=== PATIENT | male | born 1955 | race Caucasian/White ===

== ENCOUNTER 2019-04-05 00:10 | Inpatient (IN) | payer OTHER, MEDICAID ==
[~2019-04-05] VITALS: Ht 172.7 cm; Wt 78.3 kg
[2019-04-05] VITALS (10 sets, daily range): BP systolic 95–149; BP diastolic 37–100
[~2019-04-05 00:10] MED LIST: ACETAMINOPHEN-1 EAC1 PO; ASPIRIN; ASPIRIN325 PO; CARAFATE 1 GM TA1 G1 PO; COREG; CRESTOR10 MG PO; FISH OIL 1,001000 M2 PO; FISHOIL; FLEXERIL PO; GEMFIBROZIL; HYDROCODONE-AP1 EAC6 PO; HYDROCODONE-APA1 TA1 PO; IBUPROFEN 800800 M1 PO; JANUMET 50-1,01 EACH PO; LEVOXYL175 MCG PO; LIPITOR; MUSCLE RELAXER; NEURONTIN600 MG PO; NORVASC5 MG PO; PHENERGAN 25 MG25 M1 PO; PLAVIX; PREDNISONE50 MG PO; TOPROL XL100 MG PO; TRICOR145 MG PO; ZANTAC 150MG T150 MG PO; ZESTRIL; ZETIA10 MG PO
[2019-04-05 00:27] LABS: ABSOLUTE BASOPHILS 0.2 thou/uL (0.0-0.2); ABSOLUTE EOSINOPHILS 0.1 thou/uL (0.0-0.7); ABSOLUTE LYMPHOCYTES 4.1 thou/uL (0.8-5.3); ABSOLUTE MONOCYTES 1.5 thou/uL (0.0-1.2); ABSOLUTE NEUTROPHILS 10.1 thou/uL (1.6-8.1); BASOPHILS 1.2 %; EOSINOPHILS 0.6 %; HEMATOCRIT 44.7 % (42.0-52.0); HEMOGLOBIN 15.5 gm/dL (14.0-18.0); LYMPHOCYTES 25.8 %; MCH 32.3 pg (26.0-34.0); MCHC 34.6 g/dL (28.0-37.0); MCV 93.2 fL (80.0-100.0); MONOCYTES 9.4 %; MPV 8.1 fl. (7.2-11.1); NUCLEATED RBCS 0 /100WBC; PLATELET COUNT* 276 thou/uL (150-400); RDW-CV 13.6 % (10.5-14.5)
--- NOTE | 2019-04-05 00:48 | NUR ---
DR BUI AND CATHLAB CREW ARRIVED AT BEDSIDE. 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
[2019-04-05 00:51] LABS: APTT 22.9 Seconds (25.0-31.3); PROTIME 10.3 Seconds (9.20-11.50)
[2019-04-05 00:56] LABS: ALBUMIN 3.3 g/dL (3.4-5.0); ALKALINE PHOSPHATASE 93 U/L (46-116); ANION GAP 15 mmol/L (7-16); BUN 37 mg/dL (7-18); CALCIUM 8.8 mg/dL (8.5-10.1); CHLORIDE 96 mmol/L (98-107); CHOLESTEROL 343 mg/dL (<200); CO2 19 mmol/L (21-32); CREATININE 1.2 mg/dL (0.6-1.3); HDL CHOLESTEROL 21 mg/dL (>40); MAGNESIUM 2.1 mg/dL (1.8-2.4); POTASSIUM 4.5 mmol/L (3.5-5.1); SODIUM 130 mmol/L (136-145); TC:HDL 16.3 Ratio (Not establshd); TOTAL BILIRUBIN 0.3 mg/dL (<0.1-1.0); TOTAL PROTEIN 7.3 g/dL (6.4-8.2); TRIGLYCERIDE 1582 mg/dL (<150); VLDL 316 mg/dL (<40)
[2019-04-05 00:59] LABS: GLUCOSE 581 mg/dL (70-99); LDL CHOLESTEROL ND mg/dL (<100); SERUM ASSESSMENT Moderate Lipemia
[2019-04-05 01:13] LABS: SGOT 87 U/L (15-37); SGPT 45 U/L (30-65)
[2019-04-05 05:49] LABS: HEMATOCRIT 42.5 % (42.0-52.0); HEMOGLOBIN 14.6 gm/dL (14.0-18.0); MCH 31.6 pg (26.0-34.0); MCHC 34.3 g/dL (28.0-37.0); MCV 92.2 fL (80.0-100.0); RBC 4.61 mil/uL (4.50-6.00); RDW-CV 13.7 % (10.5-14.5); WBC 13.5 thou/uL (4.0-11.0)
[2019-04-05 06:04] LABS: CALCIUM 8.8 mg/dL (8.5-10.1); CREATININE 0.8 mg/dL (0.6-1.3); POTASSIUM 4.6 mmol/L (3.5-5.1)
[2019-04-05 06:13] LABS: TROPONIN-I LEVEL 27.73 ng/mL (<0.06)
[2019-04-05] MEDS ORDERED: GLUCOPHAGE1000 MG PO (07:37)
[2019-04-05] MEDS ORDERED: NOVOLOG100 UNIT/M SUBQ (07:40)
[2019-04-05] MEDS ORDERED: LANTUS SUBQ (07:45)
--- NOTE | 2019-04-05 12:20 | CARD ---
[address] [address] CARDIAC CATH REPORT Name: LULI WOLF Room: 002-[facility] IN .R.#: [id number] Admission: 04/05/19 Attend Phys: Les Aguayo Discharge: Date of : 59 Report #: [id number] THIS REPORT FOR: //name// APPROVED REPORT Study performed: 04/05/2019 00:33:31 Patient Details Patient Status: ED Room #: The patient is a 63 year-old male Event Personnel Pepe Strong Operations Intern, Betina Isaac RN Monitor, Shaina Curiel Coverstitch Elastic Attacher, Jame Mendez BOTTOM CAGER Scrub Procedures Performed Art Access - R femoral artery* Left Heart Cath w/or w/o Coronaries [facility] JUAN Revasc AMI Total/Sub Single LAD C9606 Indication STEMI Risk Factors Dysplipidemia , Family History, Hypercholesterolemia, Hypertension, Diabetes Tobacco History () Previous Procedures/Diagnoses Previous PCI, 2 days prior Admission/Lab Medications/Medications given during procedure Aspirin, Thrombin Inhibitors, Platelet Aff. Inhib., Angiomax IV 12 ml, Angiomax Drip IV 28 ml per hr Procedure Narrative The patient was brought emergently to the Cardiac Catheterization Laboratory and was prepped and draped in a sterile manner. The right femoral was infiltrated with 1% Lidocaine subcutaneous anesthesia. A 6fr [place] sheath was inserted into the . Coronary angiography was performed using coronary diagnostic catheters. The right coronary system was accessed and visualized with a Diagnostic JR4 6Fr catheter. The left coronary system was accessed and visualized with a Diagnostic JL4 catheter. The left ventricle was accessed and visualized with a Diagnostic Pigtail catheter. Left ventricular/Aortic Valve gradient assessed via catheter pullback. Closure device was deployed with a 6 [place] [address] CARDIAC CATH REPORT Name: LULI WOLF Room: [address]#: [id number] Admission: 04/05/19 Attend Phys: Les Aguayo Discharge: Date of : 59 Report #: [id number] tolerated the procedure well and there were no complications associated with the procedure. There was no hematoma. Intraoperative Conscious Sedation Sedation start time: 00:58 Case end Time: 01:37 Fentanyl 25 mcg Versed 1 mg Fluoro Time: 14.1 minutes Dose: 1411 mGy Contrast Type and Amount: Visipaque 200 ml Diagnostic Cath Left Main 0 Percent narrowing LAD 100% proximal LAD occlusion within the previously deployed stent with prominent intraluminal thrombus Circumflex 70% mid vessel narrowing OM1 40% proximal narrowing Right Coronary Dominant vessel with 30% mid vessel narrowing Hemodynamics The aortic pressure is 157/95 mmHg with a mean of 122 mmHg. The left ventricular pressure is 156/4 mmHg with a mean of mmHg. The left ventricular end diastolic pressure is 18 mmHg. There was no gradient across the aortic valve upon pullback. PCI Technique Lesion Anticoagulation was achieved with Angiomax. Percutaneous coronary intervention was performed on the proximal left anterior descending artery segment. The lesion stenosis prior to intervention was 100% with PACHECO 0 flow. A 6F XB LAD 3.5 Guide Catheter was used to engage the ostium. A IG: ProwaterFlex 180CM Interventional Guidewire was used to cross the lesion. BALLOON DILATION A Balloon catheter Trek RX 2.5 X 12 was inserted and inflated up to 16.00atm for 7seconds. Additional Inflation: 20.00atm for 8seconds. STENT DEPLOYMENT A drug-eluting stent Orsiro 3.0 x 18 mm was inserted and inflated up to 9.00atm for 12seconds. Additional Inflation: 10.00atm for 12seconds. Final angiography reveals 0 % stenosis with PACHECO 3 [place] [address] CARDIAC CATH REPORT Name: LULI WOLF Room: [address] IN [facility]#: [id number] Admission: 04/05/19 Attend Phys: Les Aguayo Discharge: Date of : 59 Report #: [id number] flow. Conclusion #1 significant coronary artery disease characterized by the following: A 100% proximal LAD occlusion with stent thrombosis noted and prominent intraluminal thrombus B 70% narrowing in the midportion of the circumflex with 40% first marginal narrowing C dominant right coronary artery with 30% mid vessel narrowing #2 modest elevation of left ventricular end-diastolic pressure at rest #3 successful percutaneous coronary intervention with deployment of a drug-eluting stent at the site of 100% proximal LAD occlusion with 0% residual narrowing and PACHECO-3 flow the distal vessel and no residual thrombus Recommendations Smoking Cessation Cardiac Risk Reduction Program Aggressive Medical Therapy Medications Administered Aspirin (any) Prasugrel Diagnostic Cath Approved by: Pepe Strong MD Date/Time: 04/05/2019 12:18:54 <ELECTRONICALLY SIGNED> By: Pepe Strong MD, FACC 04/05/19 1219 1219 1219Pepe Strong MD, FACC /INF
--- NOTE | 2019-04-05 13:04 | CON ---
[address] [address] CONSULTATION Name: LULI WOLF Room: [address] IN .R.#: [id number] Admission: 04/05/19 Attend Phys: Les Aguayo Discharge: Date of : 59 Report #: [id number] THIS REPORT FOR: //name// CC: MICHAEL physician/PCP Sharon Whalen DATE OF SERVICE: 04/05/2019 CARDIOLOGY CONSULTATION HISTORY OF PRESENT ILLNESS: The patient is a 63-year-old male who presented with severe chest pain. He left [facility] after a stenting procedure on Saturday AMA. He did not taking antiplatelet therapy and developed severe chest pain this evening. He presented to the ER with severe chest pain and ST segment elevation and transportation by paramedics. This was confirmed on repeat EKG with acute anterior wall ST segment elevation myocardial infarction noted. The patient had persistent chest pain with mild shortness of breath. Risk factors include diabetes, hypertension and hypercholesterolemia. FAMILY HISTORY: Tobacco use. SOCIAL HISTORY: The patient is a smoker. PHYSICAL EXAMINATION: GENERAL: Reveals an acutely distressed middle-aged male. VITAL SIGNS: Blood pressure is 140/90, pulse rate is 92, respirations 18 per minute. NECK: Jugular venous pressure is normal. CHEST: Clear. CARDIAC: Reveals normal first and second heart sounds with an S4 gallop. ABDOMEN: Nontender. EXTREMITIES: Without edema with intact femoral, pedal and radial pulses. EKG reveals acute anterior wall injury with ST segment elevation over the anterior precordium. IMPRESSION: 1. Acute anterior wall ST segment elevation myocardial infarction. 2. Probable acute stent thrombosis in the context of noncompliance with antiplatelet therapy after recent stenting procedure. 3. Hypertension. 4. Type 2 diabetes. 5. Hypercholesterolemia. [address] [address] CONSULTATION Name: LULI WOLF Room: [address]#: [id number] Admission: 04/05/19 Attend Phys: Les Aguayo Discharge: Date of : 59 Report #: [id number] 6. Tobacco habituation. RECOMMENDATIONS: 1. Emergent catheterization after heparin, aspirin, and nitrates have been administered. 2. Would plan intervention if indicated contingent on the results of that catheterization. Critical care time is 35 minutes from 0130 to 0235 on 04/05/2019. <ELECTRONICALLY SIGNED> By: Pepe Strong MD, FACC 04/05/19 1304 0208 0241Pepe Strong MD, FACC /nt
--- NOTE | 2019-04-05 15:40 | NUR ---
PT TRANSFERRED UP TO 219 AT THIS TIME. PT EATING [employer] AT THE TIME OF TRANSFER, NOT FOLLOWING DIET ORDERS AT THIS TIME. PT EDUCATED REGARDING DIETARY ORDERS, CONTINUED TO EAT [employer]. WILL CONTINUE TO MONITOR AND ASSESS
--- NOTE | 2019-04-05 16:22 | NUR ---
THIS CHECK WEIGHER ASSUMED CARE OF PT AT 0700 PT PROGRESSED TOWARDS GOALS THROUGHOUT SHIFT WAS ABLE TO MOVE AND SIT UP AT 0800 POST CATH DRESSING INTACT LITTLE C/O PAIN PT WAS TRANSFERED TO TELEY ROOM 218 REPORT GIVEN TO CHANTELL MOISE IN ROOM AT TIME OF TRANSFER
--- NOTE | 2019-04-05 17:10 | NUR ---
RECIEVED REPORT FROM FAINA IN ICU. REVIEWED CHARTING AND AGREE WITH HER ASSESSMENT. WILL CONTINUE TO MONITOR AND ASSESS AT THIS TIME
[2019-04-06] VITALS (9 sets, daily range): BP systolic 83–109; BP diastolic 52–68
[2019-04-06 04:42] LABS: CALCIUM 8.8 mg/dL (8.5-10.1); CREATININE 0.9 mg/dL (0.6-1.3)
--- NOTE | 2019-04-06 04:44 | NUR ---
ASSUMED CARE OF PT AFTER REPORT AT 1930. PT A&OX4. VSS. PHYSICAL ASSESSMENT COMPLETED AND CHARTED. PT ON RA. PT TRACING SR ON TELE. PT UP ADLIB TO RESTROOM. POST CATH SITE TO RIGHT GROIN CLEAN, DRY & INTACT WITH MINIMAL DRY OLD BLOOD ON THE DRESSING. NO HEMATOMA NOTED. PT DENIES ANY PAIN OR SOA. PT ABLE TO SLEEP WELL ON BED. CALL LIGHT WITHIN REACH.
--- NOTE | 2019-04-06 10:04 | NUR ---
ASSUMED CARE OF PT AT 0730. PT RESTING IN BED. PT A&0X4, DENIES ANY PAIN OR SHORTNESS OF BREATH AT THIS TIME. 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 BLOOD PRESSURE SOFT THIS AM-80'S/40'S- AM BP MEDS HELP AT THIS TIME. ON RA SAT UPPER 90'S. PT UP AD CHARLIE IN ROOM. RIGHT GROIN CATH SITE-DSG IN PLACE WITH SMALL AMOUNT OF DRIED BLOOD NOTED- NO HEMATOMA NOTED. PT GOAL FOR TODAY IS DISCHARGE PLANNING TO HOME AND MAINTAIN SBP > 90. AM ASSESSMENT CHARTED. MEDICATIONS PER AUG. PT REPOSITIONS SELF. HOURLY ROUNDING OBSERVED. BED IN LOW POSITION. CALL LIGHT WITHIN REACH. WILL CONTINUE PLAN OF CARE.
--- NOTE | 2019-04-06 10:20 | NUR ---
Pt is A&O. Resides at home with his sister. Independent. Pt uses a cane for mobility. No hx of HH or SNF. Goal is home at id. No needs anticipated. Following.
[2019-04-06] MEDS ORDERED: LOPRESSOR25 PO (12:41)
[2019-04-06] MEDS ORDERED: FENOFIBRATE160 MG PO (12:41)
[2019-04-06] MEDS ORDERED: ZETIA10 MG PO (12:41)
[2019-04-06] MEDS ORDERED: LIPITOR40 MG PO (12:41)
[2019-04-06] MEDS ORDERED: PRINIVIL5 MG PO (12:41)
[2019-04-06] MEDS ORDERED: PLAVIX 75 MG TA75 MG PO (12:59)
--- NOTE | 2019-04-06 16:29 | EKG ---
[place] [address] ELECTROCARDIOGRAM REPORT Name: LULI WOLF Room: [address] ADM IN M.R.#: [id number] Admission: 04/05/19 Attend Phys: Les Aguayo Discharge: Date of : 59 Report #: [id number] THIS REPORT FOR: //name// [facility] ED Test Date: 2019-04-05 Test Time: 00:15:46 Pat Name: LULI WOLF Department: Room: [facility] Gender: M Pharmacogeneticist: OR : 1955 Requested By: Roslyn Pritchett Order Number: [id number] MD: Sheldon Fernandez Measurements Intervals [place] Rate: 99 P: 73 SD: 154 QRS: -44 QRSD: 112 T: 92 QT: 337 QTc: 433 Interpretive Statements Sinus rhythm Probable left atrial enlargement Borderline IVCD with LAD Anterior infarct, acute (LAD) Compared to ECG 06/04/2014 20:27:03 Myocardial infarct finding now present Sinus bradycardia no longer present Electronically Signed On 04-06-2019 16:29:45 CDT by Sheldon Fernandez [email or web address] <ELECTRONICALLY SIGNED> By: Sheldon Fernandez MD, FACC 04/06/19 1629 0015 0015 Sheldon Fernandez MD, [facility] WITH [facility] /EPI
--- NOTE | 2019-04-06 16:31 | EKG ---
[place] [address] ELECTROCARDIOGRAM REPORT Name: LULI WOLF Room: [address] ADM IN .R.#: [id number] Admission: 04/05/19 Attend Phys: Les Aguayo Discharge: Date of : 59 Report #: [id number] THIS REPORT FOR: //name// [facility] Test Date: 2019-04-05 Test Time: 02:53:00 Pat Name: LULI WOLF Department: Room: [facility] Gender: M Architecture Technician: JOSE M : 1955 Requested By: Pepe Strong Order Number: [id number] Tonja MD: Sheldon Fernandez Measurements Intervals [place] Rate: 81 P: 28 [place]: 143 QRS: -21 QRSD: 108 T: 103 QT: 423 QTc: 491 Interpretive Statements Sinus rhythm Abnrm T, consider ischemia, anterolateral lds Baseline wander in lead(s) V6 Electronically Signed On 04-06-2019 16:30:59 CDT by Sheldon Fernandez [email or web address] <ELECTRONICALLY SIGNED> By: Sheldon Fernandez MD, [facility] 04/06/19 1630 025 025 Sheldon Fernandez MD, FACC /EPI
--- NOTE | 2019-04-06 17:17 | 2DMMODE ---
[place] [address] 2 D/M-MODE ECHOCARDIOGRAM Name: LULI WOLF Room: [address] IN [facility]#: [id number] Admission: 04/05/19 Attend Phys: Sharon Whalen Discharge: Date of : 59 Date of Service: 04/06/19 1717 Report #: [id number] THIS REPORT FOR: //name// APPROVED REPORT Study performed: 04/06/2019 11:13:15 EXAM: Comprehensive 2D, Doppler, and color-flow Echocardiogram Patient Location: In-Patient Room #: 218 Status: routine BSA: 1.94 HR: 68 bpm BP: 89/63 mmHg Rhythm: NSR Other Information Study Quality: Good Indications Acute SC 2D Dimensions IVSd: 12.28 (7-11mm) LVOT Diam: 22.75 (18-24mm) LVDd: 49.26 mm PWd: 12.41 (7-11mm) Ascending Ao: 31.27 (22-36mm) LVDs: 36.62 (25-40mm) Aortic Root: 33.58 mm Volumes Left Atrial Volume (Systole) LA ESV Index: 27.20 mL/m2 Aortic Valve AoV Peak Stanley.: 1.38 m/s AO Peak Gr.: 7.56 mmHg LVOT Max P.04 mmHg AO Mean Gr.: 4.18 mmHg LVOT Mean P.86 mmHg LVOT Max V: 1.00 m/s AO V2 VTI: 22.55 cm LVOT Mean V: 0.62 m/s ERNESTO (VTI): 3.03 cm2 LVOT V1 VTI: 16.80 cm Mitral Valve E/A Ratio: 0.76 MV Decel. Time: 338.05 ms MV E Max Stanley.: 0.47 m/[place] [address] 2 D/M-MODE ECHOCARDIOGRAM Name: LULI WOLF Room: [address] IN [facility].#: [id number] Admission: 04/05/19 Attend Phys: Sharon Whalen Discharge: Date of : 59 Date of Service: 04/06/19 1717 Report #: [id number] MV PHT: 98.03 ms MVA (PHT): 2.24 cm2 TDI E/Lateral E': 4.70 E/Medial E': 6.71 Medial E' Stanley.: 0.07 m/s Lateral E' Stanley.: 0.10 m/s Pulmonary Valve PV Peak Stanley.: 1.05 m/s PV Peak Gr.: 4.42 mmHg Left Ventricle The left ventricle is normal size. Regional wall motion abnormalities are noted with distal septal and anteroapical hypokinesis. Mild concentric left ventricular hypertrophy. Left ventricular systolic function is moderately decreased. LVEF is 40%. Grade I - abnormal relaxation pattern. Right Ventricle The right ventricle is normal size. The right ventricular systolic function is normal. Atria The left atrium size is normal. The right atrium size is normal. Aortic Valve The aortic valve is normal in structure. No aortic regurgitation is present. There is no aortic valvular stenosis. Mitral Valve The mitral valve is normal in structure. There is no mitral valve regurgitation noted. No evidence of mitral valve stenosis. Tricuspid Valve The tricuspid valve is normal in structure. Unable to assess PA pressure. Trace tricuspid regurgitation. Pulmonic Valve The pulmonary valve is normal in structure. There is no pulmonic valvular regurgitation. Great Vessels The aortic root is normal in size. IVC is normal in size and collapses >50% [place] [address] 2 D/M-MODE ECHOCARDIOGRAM Name: LULI WOLF Room: [address] IN [facility]#: [id number] Admission: 04/05/19 Attend Phys: Sharon Whalen Discharge: Date of : 59 Date of Service: 04/06/19 1717 Report #: [id number] Pericardium There is no pericardial effusion. <Conclusion> The left ventricle is normal size. Mild concentric left ventricular hypertrophy. Left ventricular systolic function is moderately decreased. LVEF is 40%. Grade I - abnormal relaxation pattern. The right ventricle is normal size. The left atrium size is normal. The aortic valve is normal in structure. The mitral valve is normal in structure. The tricuspid valve is normal in structure. IVC is normal in size and collapses >50% with inspiration. Regional wall motion abnormalities are noted with distal septal and anteroapical hypokinesis. <ELECTRONICALLY SIGNED> By: Pepe Strong MD, FACC 04/06/191716 16 16 Pepe Strong MD, FACC /INF
--- NOTE | 2019-04-06 17:47 | EKG ---
[place] [address] ELECTROCARDIOGRAM REPORT Name: DESMOND WOLF Room: [address] ADM IN M.R.#: [id number] Admission: 04/05/19 Attend Phys: Les Aguayo Discharge: Date of : 59 Report #: [id number] THIS REPORT FOR: //name// [facility] Test Date: 2019-04-05 Test Time: 11:02:09 Pat Name: DESMOND WOLF Department: Room: [facility] Gender: M Champion Of Sustainable Design: UNKNOWN : 1955 Requested By: Pepe Strong Order Number: [id number] Tonja MD: Desmond Bermudez Measurements Intervals [place] Rate: 71 P: -16 [place]: 148 QRS: -15 QRSD: 105 T: 111 QT: 437 QTc: 475 Interpretive Statements Sinus rhythm Borderline left axis deviation Probable anteroseptal infarct, recent Lateral leads are also involved Baseline wander in lead(s) II,III,aVR,aVF Compared to ECG 06/04/2014 20:27:03 Myocardial infarct finding now present Sinus bradycardia no longer present Electronically Signed On 04-06-2019 17:47:39 CDT by Desmond Bermudez [email or web address] <ELECTRONICALLY SIGNED> By: Desmond Bermudez MD, FACC 04/06/19 1747 1102 1102 Desmond Bermudez MD, FACC /EPI
--- NOTE | 2019-04-06 17:55 | NUR ---
NO ACUTE CHANGES THROUGHOUT SHIFT. REFER TO CHARTING. PT HAD ECHO TODAY-EF 40%. PT BLOOD PRESSURE BETTER THIS AFTERNOON 100'S/60'S. PT DENIES ANY PAIN OR SHORTNESS OF BREATH THROUGHOUT AFTERNOON. CONTINUES TO TRACE SR ON THE RN ORTHOPEDIC. ON RA SAT UPPER 90'S. PT UP AD CHARLIE IN ROOM. PT PROGRESSING TOWARDS GOALS. PROBABLE DISCHARGE HOME TOMORROW 04/07. MEDICATIONS PER AUG. PT REPOSITIONS SELF. HOURLY ROUNDING OBSERVED. BED IN LOW POSITION. CALL LIGHT WITHIN REACH. WILL CONTINUE PLAN OF CARE.
[2019-04-07] VITALS: BP 106/75
[2019-04-07 04:00] VITALS: BP 106/61
--- NOTE | 2019-04-07 06:44 | NUR ---
PT SLEPT ON AND OFF THIS SHIFT. ASSESSMENT DOCUMENTED. MEDS GIVEN PER E-MAR IV PATENT. TYLENOL GIVEN FOR HEADACHE. NO REPORTS OF CHEST PAIN THIS SHIFT. PT BECAME VERY AGGGITATED THIS SHIFT. TELE MONITOR IN PLACE. WILL CONTINUE WITH PLAN OF CARE.
[2019-04-07 07:30] VITALS: BP 96/70
--- NOTE | 2019-04-07 10:21 | NUR ---
ASSUMED CARE OF PT AT 0730. PT SITTING UP IN THE CHAIR WAITING FOR BREAKFAST. A&0X4, DENIES ANY PAIN OR SHORTNESS OF BREATH AT THIS TIME. 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 ON RA SAT 97%. PT UP AD CHARLIE IN ROOM. PT BLOOD PRESSURE SOFT THIS AM-80'S/60'S. AM LISINOPRIL AND AMLODIPINE HELD. REFER TO EMAR. PT ASYMPTOMATIC. PT GOAL FOR TODAY IS DISCHARGE PLANNING TO HOME. RIGHT GROIN CATH SITE-DRESSING IN PLACE-C/D/I WITH NO HEMATOMA NOTED. AM ASSESSMENT CHARTED. MEDICATIONS PER AUG. PT REPOSITIONS SELF. HOURLY ROUNDING OBSERVED. BED IN LOW POSITION. CALL LIGHT WITHIN REACH. WILL CONTINUE PLAN OF CARE.
[2019-04-07 11:30] VITALS: BP 124/68
[2019-04-07] MEDS ORDERED: CLOPIDOGREL75 MG PO (13:03)
[2019-04-07] MEDS ORDERED: TOPROL XL100 MG PO (13:03)
[2019-04-07] MEDS ORDERED: LIPITOR 40 MG T40 M1 PO (13:03)
[2019-04-07] MEDS ORDERED: NICOTINE TRANSD14 M1 TRANSDERM (15:03)
[2019-04-07] MEDS ORDERED: COLACE100 MG PO (15:03)
[2019-04-07] MEDS ORDERED: PEPCID20 MG PO (15:04)
--- NOTE | 2019-04-07 15:40 | NUR ---
DISCHARGE ORDERS RECEIVED. DISCHARGE INSTRUCTIONS, CARE NOTES, SCRIPTS AND FOLLOW UP APPTS GIVEN TO PT. PT COMMUNICATES UNDERSTANDING OF DISCHARGE TEACHING. BOTH IV'S AND SOCIAL AND POLITICAL STUDIES PROFESSOR REMOVED. PT DISCHARGED WITH ALL BELONGINGS AND PAPERWORK VIA WHEELCHAIR WITH NURSING STAFF TO SPOUSE OWN PERSONAL VEHICLE.
== END 2019-04-07 15:40 | disposition home or self-care (01) | DRG 246 ==
LOC: M.ERS 00:10 → M.CL 00:10 → M.2W 01:49 → M.ICU 01:49 → M.TBA-CV 01:49 → M.ICU 01:56 → M.2W 15:43
PROVIDERS: Internal Medicine; Personal Emergency Response Attendant; ADMIT Internal Medicine
PROC: 027034Z Dilation of Coronary Artery, One Artery with Drug-eluting Intraluminal Device, Percutaneous Approach (ICD-10-PCS; principal; 2019-04-05)
PROC: B211YZZ Fluoroscopy of Multiple Coronary Arteries using Other Contrast (ICD-10-PCS; principal; 2019-04-05)
PROC: 4A023N7 Measurement of Cardiac Sampling and Pressure, Left Heart, Percutaneous Approach (ICD-10-PCS; principal; 2019-04-05)
DX: T82.867A Thrombosis due to cardiac prosthetic devices, implants and grafts, initial encounter (principal); I21.3 ST elevation (STEMI) myocardial infarction of unspecified site; E11.00 Type 2 diabetes mellitus with hyperosmolarity without nonketotic hyperglycemic-hyperosmolar coma (NKHHC); I50.43 Acute on chronic combined systolic (congestive) and diastolic (congestive) heart failure; E87.1 Hypo-osmolality and hyponatremia; K86.1 Other chronic pancreatitis; Y84.0 Cardiac catheterization as the cause of abnormal reaction of the patient, or of later complication, without mention of misadventure at the time of the procedure; I11.0 Hypertensive heart disease with heart failure; E78.00 Pure hypercholesterolemia, unspecified; F17.210 Nicotine dependence, cigarettes, uncomplicated; J44.9 Chronic obstructive pulmonary disease, unspecified; G89.29 Other chronic pain; E03.9 Hypothyroidism, unspecified; E11.65 Type 2 diabetes mellitus with hyperglycemia; E78.5 Hyperlipidemia, unspecified; I95.9 Hypotension, unspecified; Z71.6 Tobacco abuse counseling; Y92.89 Other specified places as the place of occurrence of the external cause; Z79.4 Long term (current) use of insulin; Z68.26 Body mass index [BMI] 26.0-26.9, adult

== ENCOUNTER 2019-04-25 21:12 | Inpatient (IN) | payer OTHER, MEDICAID ==
[~2019-04-25] VITALS: Ht 172.7 cm; Wt 86.6 kg
[~2019-04-25 21:12] MED LIST changes: +CLOPIDOGREL75 MG PO; +COLACE100 MG PO; +FENOFIBRATE160 MG PO; +GLUCOPHAGE1000 MG PO; +LANTUS SUBQ; +LIPITOR 40 MG T40 M1 PO; +LIPITOR40 MG PO; +LOPRESSOR25 PO; +NICOTINE TRANSD14 M1 TRANSDERM; +NOVOLOG100 UNIT/M SUBQ; +PEPCID20 MG PO; +PLAVIX 75 MG TA75 MG PO; +PRINIVIL5 MG PO
[2019-04-25 21:22] VITALS: BP 62/36
[2019-04-25 21:45] LABS: ABSOLUTE EOSINOPHILS 0.1 thou/uL (0.0-0.7); ABSOLUTE LYMPHOCYTES 1.6 thou/uL (0.8-5.3); ABSOLUTE MONOCYTES 0.5 thou/uL (0.0-1.2); BASOPHILS 0.7 %; EOSINOPHILS 1.9 %; HEMATOCRIT 23.7 % (42.0-52.0); HEMOGLOBIN 8.4 gm/dL (14.0-18.0); LYMPHOCYTES 25.9 %; MCHC 35.6 g/dL (28.0-37.0); MCV 92.8 fL (80.0-100.0); MONOCYTES 8.2 %; MPV 7.5 fl. (7.2-11.1); NUCLEATED RBCS 0 /100WBC; PLATELET COUNT* 190 thou/uL (150-400); POLYS 63.3 %; RBC 2.56 mil/uL (4.50-6.00); RDW-CV 13.4 % (10.5-14.5); WBC 6.3 thou/uL (4.0-11.0)
[2019-04-25 21:54] LABS: URINE BILIRUBIN 1+ (Negative); URINE BLOOD TRACE (Negative); URINE CLARITY CLEAR; URINE COLOR YELLOW; URINE GLUCOSE-RANDOM TRACE (Negative); URINE KETONES NEGATIVE (Negative); URINE LEUKOCYTES-REFLEX NEGATIVE (Negative); URINE NITRITE-REFLEX NEGATIVE (Negative); URINE PROTEIN 3+ (Negative); URINE SPECIFIC GRAVITY >= 1.030 (1.005-1.030); URINE UROBILINOGEN 0.2 E.U./dl (0.2-1.0)
[2019-04-25 21:55] VITALS: BP 69/46
[2019-04-25 21:56] LABS: INR 1.5; PROTIME 14.8 Seconds (9.20-11.50)
[2019-04-25 21:56] LABS: ICTOTEST (BILI CONFIRMATORY) Positive (Negative)
[2019-04-25 22:01] LABS: CHLORIDE 118 mmol/L (98-107); SODIUM 143 mmol/L (136-145)
[2019-04-25 22:05] LABS: ANION GAP 18 mmol/L (7-16)
[2019-04-25 22:06] LABS: CO2 7 mmol/L (21-32); POTASSIUM 1.4 mmol/L (3.5-5.1)
[2019-04-25 22:09] LABS: SQUAMOUS 0-3 Few /LPF (0-3)
[2019-04-25 22:10] VITALS: BP 69/46
[2019-04-25 22:10] LABS: AMORPHOUS URATES Moderate /LPF (None Seen); COARSE GRANULAR CASTS 0-3 Few /LPF (None Seen); FINE GRANULAR CASTS 0-3 Few /LPF (None Seen); HYALINE CASTS 0-3 Few /LPF (None Seen); MUCUS >6 Heavy strn/LPF (None Seen); URINE RBC 3-10 Few /HPF (0-2); URINE WBC-REFLEX 0-5 Rare /HPF (0-5)
[2019-04-25 22:42] LABS: BUN 18 mg/dL (7-18); CREATININE 0.9 mg/dL (0.6-1.3); GLUCOSE 173 mg/dL (70-99)
[2019-04-25 22:43] LABS: SGOT 16 U/L (15-37)
[2019-04-25 22:44] LABS: ALKALINE PHOSPHATASE 50 U/L (46-116); CALCIUM 5.3 mg/dL (8.5-10.1)
[2019-04-25 22:45] LABS: ALBUMIN 2.3 g/dL (3.4-5.0); NT-PRO BRAIN NAT PEPTIDE 1734 pg/mL (<300); SGPT 14 U/L (30-65); TOTAL PROTEIN 4.3 g/dL (6.4-8.2)
[2019-04-25 23:41] VITALS: BP 105/75
[2019-04-25 23:49] LABS: CREATININE 1.5 mg/dL (0.6-1.3); POTASSIUM 3.6 mmol/L (3.5-5.1)
[2019-04-25 23:51] LABS: CALCIUM 8.6 mg/dL (8.5-10.1)
[2019-04-25 23:52] LABS: ALBUMIN 3.6 g/dL (3.4-5.0); MAGNESIUM 1.5 mg/dL (1.8-2.4); PHOSPHORUS* 3.5 mg/dL (2.5-4.9)
[2019-04-26] VITALS (37 sets, daily range): BP systolic 107–160; BP diastolic 62–97
--- NOTE | 2019-04-26 06:24 | NUR ---
PATIENT ON UNIT FROM DESIGN ARCHITECT AT 2340. PATIENT WAS IN PAIN UNTIL MORPHINE ADMINISTRATION. THIS IS THE 3RD REPORTED STEMI IN THE SAME ARTERY WITH THE PATIENT. THERE IS A REPORTED HISTORY OF NONCOMPLIANCE WITH ANTIPLATELET THERAPY. PHYSICIAN AND NURSE EDUCATED PATIENT ON THE IMPORTANCE OF TAKING MEDICATION AFTER HOSPITALIZATION. PATIENT IS CALM AND RESTING IN BED. ABLE TO SIT UP IN BED AT 0500. ANGIOSEAL AND DRESSING OVER INSERTION SITE IN RIGHT GROIN IS DRY AND INTACT WITH NO EVIDENCE OF BLEEDING OR HEMATOMA. PATIENT DENIES PAIN TO THE AREA. ALL PULSES PRESENT AND SENSATION INTACT. NO SIGNIFICANT EVENTS THIS SHIFT.
--- NOTE | 2019-04-26 11:23 | EKG ---
[place] [address] ELECTROCARDIOGRAM REPORT Name: LULI WOLF Room: [address] ADM IN .R.#: [id number] Admission: 04/25/19 Attend Phys: Yaya Thomas MD Discharge: Date of : 59 Report #: [id number] THIS REPORT FOR: //name// [facility] ED Test Date: 2019-04-25 Test Time: 21:26:10 Pat Name: LULI WOLF Department: Room: [facility] Gender: M Talcer: AJ : 1955 Requested By: Amina Morfin Order Number: [id number] MD: Sheldon Fernandez Measurements Intervals [place] Rate: 109 P: 25 [place]: 136 QRS: -29 QRSD: 101 T: 103 QT: 342 QTc: 461 Interpretive Statements Sinus tachycardia Anterior infarct, acute (LAD) Baseline wander in lead(s) V6 Compared to ECG 04/05/2019 11:02:09 Sinus rhythm no longer present Myocardial infarct finding still present Electronically Signed On 04-26-2019 11:23:33 RECONCILING CLERK by Sheldon Fernandez [email or web address] <ELECTRONICALLY SIGNED> By: Sheldon Fernandez MD, FACC 04/26/19 1123 25 25 Sheldon Fernandez MD, [facility] /EPI
[2019-04-26 11:32] LABS: ALBUMIN 3.7 g/dL (3.4-5.0); CALCIUM 8.6 mg/dL (8.5-10.1); CREATININE 1.2 mg/dL (0.6-1.3); POTASSIUM 4.5 mmol/L (3.5-5.1); TOTAL BILIRUBIN 0.4 mg/dL (<0.1-1.0); TOTAL PROTEIN 7.2 g/dL (6.4-8.2)
[2019-04-26 13:15] LABS: SGPT 33.6 U/L (30-65)
--- NOTE | 2019-04-26 14:00 | NUR ---
PT CO CHEST PAIN COUGHING FREQUENTLY. ALERT TAKING PO VERY HUNGRY. BP REMAINS STABLE. DENIES SOA. FAMILY AT BEDSIDE.
--- NOTE | 2019-04-26 18:39 | NUR ---
PATIENT CO PAIN AT TIMES ALSO COUGHING ALOT. ATTEMPTED MOIST HEAT FOR SINUS RECOMENDED BY DR MAXWELL. PATIENT TAKING PO WELL CAMERON REMAINS INTACT AT PTS REQUEST.
[2019-04-27] VITALS (22 sets, daily range): BP systolic 97–149; BP diastolic 53–98
[2019-04-27 03:29] LABS: HEMATOCRIT 39.2 % (42.0-52.0); MCH 31.5 pg (26.0-34.0); MCHC 34.2 g/dL (28.0-37.0); MCV 91.9 fL (80.0-100.0); MPV 7.9 fl. (7.2-11.1); RBC 4.27 mil/uL (4.50-6.00); RDW-CV 13.6 % (10.5-14.5); WBC 10.8 thou/uL (4.0-11.0)
[2019-04-27 03:31] LABS: HEMOGLOBIN 13.4 gm/dL (14.0-18.0)
[2019-04-27 03:54] LABS: ALBUMIN 3.3 g/dL (3.4-5.0); ALKALINE PHOSPHATASE 90 U/L (46-116); ANION GAP 15 mmol/L (7-16); BUN 18 mg/dL (7-18); CHLORIDE 99 mmol/L (98-107); CHOLESTEROL 328 mg/dL (<200); CK-MB MASS 237.4 ng/mL (<0.5-3.6); CO2 21 mmol/L (21-32); CREATININE 0.9 mg/dL (0.6-1.3); GLUCOSE 239 mg/dL (70-99); HDL CHOLESTEROL 27 mg/dL (>40); POTASSIUM 3.9 mmol/L (3.5-5.1); SODIUM 135 mmol/L (136-145); TC:HDL 12.1 Ratio (Not establshd); TOTAL BILIRUBIN 0.7 mg/dL (<0.1-1.0); TOTAL PROTEIN 7.2 g/dL (6.4-8.2); VLDL 269 mg/dL (<40)
[2019-04-27 04:10] LABS: SGOT 309 U/L (15-37)
[2019-04-27 04:11] LABS: SERUM ASSESSMENT Gross Lipemia; SGPT 54 U/L (30-65)
[2019-04-27 04:13] LABS: TROPONIN-I LEVEL 28.56 ng/mL (<0.06)
--- NOTE | 2019-04-27 04:38 | NUR ---
ASSUMED CARE AT 1910H, ON RA AND TOLERATED.PT COMPLAIN ONCE OF MILD CHEST PAIN AND NO CHANGES IN EKG;MED GIVEN.NO RESPIERATORY DISTRESS NOR BLEEDING NOTED.CONTINUE MONITORING AND TOWARD GOALS.CALL LIGHT WITH REACH.
[2019-04-27 05:54] LABS: TRIGLYCERIDE 1614 mg/dL (<150)
[2019-04-27 06:07] LABS: LDL CHOLESTEROL ND mg/dL (<100)
--- NOTE | 2019-04-27 10:40 | CARD ---
[address] [address] CARDIAC CATH REPORT Name: LULI WOLF Room: [address] IN .R.#: [id number] Admission: 04/25/19 Attend Phys: Yaya Thomas MD Discharge: Date of : 59 Report #: [id number] THIS REPORT FOR: //name// APPROVED REPORT Study performed: 04/25/2019 21:26:54 Event Personnel Doctor Ligia Travis Performed Left heart catheterization selective coronary artery artery and percutaneous coronary intervention with deployment of a bare metal stent at the site of 100% proximal LAD occlusion Indication STEMI Risk Factors Hypercholesterolemia, Tobacco History () Previous Procedures/Diagnoses Previous PCI, Previous ME Procedure Narrative The patient was brought emergently to the Cardiac Catheterization Laboratory and was prepped and draped in a sterile manner. The right femoral was infiltrated with 2% Lidocaine subcutaneous anesthesia. A 6 Bengali sheath was inserted into the right femoral artery. Coronary angiography was performed using coronary diagnostic catheters. The right coronary system was accessed and visualized with a Diagnostic catheter. The left coronary system was accessed and visualized with a Diagnostic catheter. Left ventricular/Aortic Valve gradient assessed . Pre-demployment femoral angiogram was performed . Closure device was deployed with a 6 Fr Angioseal. There was no hematoma. Diagnostic Cath Left Main 0% narrowing LAD 100% proximal LAD occlusion with prominent intraluminal thrombus Circumflex 60% proximal first marginal narrowing with 75% mid posterior division stenosis Right Coronary Dominant vessel with 30% proximal and mid vessel narrowing [facility] [address] [place] [address] CARDIAC CATH REPORT Name: LULI WOLF Room: [address] IN [facility].#: [id number] Admission: 04/25/19 Attend Phys: Yaya Thomas MD Discharge: Date of : 59 Report #: [id number] Left Ventriculography Left Ventriculography was not performed. Hemodynamics The aortic pressure is 110/70 mmHg with a mean of 80 mmHg. The left ventricular end diastolic pressure is 35 mmHg. There was no gradient across the aortic valve upon pullback. PCI Technique Lesion Anticoagulation was achieved with Angiomax. Percutaneous coronary intervention was performed on the proximal LAD. The lesion stenosis prior to intervention was 100% with PACHECO 0 flow. A 6 Bengali XB LAD 3.5 Guide Catheter was used to engage the left ostium. A 014 E-Box - Blogo.it flex Interventional Guidewire was used to cross the lesion. BALLOON DILATION A Balloon catheter 2.25 x 12 was inserted and inflated up to 15atm for 15seconds. STENT DEPLOYMENT A bare metal stent 2.75 x 18 mm vision was inserted and inflated up to 18atm for 15seconds. Final angiography reveals 0 % stenosis with PACHECO 3 flow. Conclusion #1 significant coronary artery disease characterized by the following: A 100% proximal LAD occlusion with prominent intra- luminal thrombus B 60% narrowing of the proximal portion of the first marginal branch with 75% mid circumflex stenosis C large dominant right coronary artery with 30% proximal and mid vessel narrowing #2 severe elevation of left ventricular end-diastolic pressure at rest #3 successful percutaneous coronary intervention with deployment of a bare metal stent at the site of 100% proximal LAD occlusion with 0% residual narrowing no residual thrombus and PACHECO-3 [place] [address] CARDIAC CATH REPORT Name: LULI WOLF Room: [address]#: [id number] Admission: 04/25/19 Attend Phys: Yaya Thomas MD Discharge: Date of : 59 Report #: [id number] Recommendations Smoking Cessation Cardiac Risk Reduction Program Aggressive Medical Therapy Medications Administered Aspirin (any) Ticagrelor Diagnostic Cath Approved by: Pepe Strong MD Date/Time: 04/27/2019 10:39:03 <ELECTRONICALLY SIGNED> By: Pepe Strong MD, FACC 04/27/19 1040 1040 1040Pepe Strong MD, FACC /INF
--- NOTE | 2019-04-27 11:05 | NUR ---
PT.RESTING IN BED. MOTHER IN ROOM. GAVE PERMISSION FOR HER TO STAY DURING CONVERSATION. PER NURSING THIS IS THE 3RD TIME STENT HAS BEEN EXCHANGED IN SAME CORONARY ARTERY. PT.SAYS HE HAD BEEN TAKING HIS PLAVIX. HE SAID NOTHING HAS CHANGED SINCE HE WAS IN IN M[place]. HE STILL LIVES WITH SISTER AND HAS A CANE HE NORMALLY USES. HE SAID HE IS INDEPENDENT. [facility]. HE SAID HE DOES CHECK HIS BLOOD SUGAR AT HOME. HAS A GLUCOMETER. TOLD PT.HE WILL BE ON A NEW MED CALLED BRILLINTA, INSTEAD OF PLAVIX. CM CAN CALL IN TO SEE HOW MUCH HIS COPAY WILL BE.
--- NOTE | 2019-04-27 14:45 | 2DMMODE ---
[place] [address] 2 D/M-MODE ECHOCARDIOGRAM Name: LULI WOLF Room: [address] IN .R.#: [id number] Admission: 04/25/19 Attend Phys: Yaya Thomas, Discharge: Date of : 59 Date of Service: 04/27/19 1445 Report #: [id number] THIS REPORT FOR: //name// APPROVED REPORT Study performed: 04/27/2019 09:11:20 EXAM: Comprehensive 2D, Doppler, and color-flow Echocardiogram Patient Location: Bedside BSA: 1.90 HR: 89 bpm BP: 137/94 mmHg Other Information Study Quality: Fair Indications Myocardial Infarction 2D Dimensions IVSd: 8.93 (7-11mm) LVOT Diam: 22.54 (18-24mm) LVDd: 55.58 mm PWd: 11.62 (7-11mm) Ascending Ao: 25.22 (22-36mm) LVDs: 49.19 (25-40mm) Aortic Root: 25.74 mm Volumes Left Atrial Volume (Systole) LA ESV Index: 27.10 mL/m2 Aortic Valve AoV Peak Stanley.: 1.27 m/s AO Peak Gr.: 6.46 mmHg LVOT Max P.15 mmHg AO Mean Gr.: 3.76 mmHg LVOT Mean P.17 mmHg LVOT Max V: 0.73 m/s AO V2 VTI: 19.06 cm LVOT Mean V: 0.51 m/s ERNESTO (VTI): 2.40 cm2 LVOT V1 VTI: 11.45 cm Mitral Valve E/A Ratio: 0.85 MV Decel. Time: 151.25 ms MV E Max Stanley.: 0.58 m/s MV PHT: 43.86 ms MVA (PHT): 5.02 [place]2 [place] [address] 2 D/M-MODE ECHOCARDIOGRAM Name: LULI WOLF Room: [address] IN [facility]#: [id number] Admission: 04/25/19 Attend Phys: Yaya Thomas, Discharge: Date of : 59 Date of Service: 04/27/19 1445 Report #: [id number] TDI E/Lateral E': 8.29 E/Medial E': 7.25 Medial E' Stanley.: 0.08 m/s Lateral E' Stanley.: 0.07 m/s Pulmonary Valve PV Peak Stanley.: 0.76 m/s PV Peak Gr.: 2.28 mmHg Tricuspid Valve RAP Estimate: 5.00 mmHg TR Peak Gr.: 9.49 mmHg RVSP: 14.49 mmHg PA Pressure: 14.49 mmHg Left Ventricle The left ventricle is normal size. There is distal septal and anteroapical hypo-akinesis. There is normal left ventricular wall thickness. Left ventricular systolic function is moderately decreased. LVEF is 35%. Grade I - abnormal relaxation pattern. Right Ventricle The right ventricle is normal size. The right ventricular systolic function is normal. Atria The left atrium size is normal. The right atrium size is normal. Aortic Valve Mild aortic valve sclerosis. No aortic regurgitation is present. There is no aortic valvular stenosis. Mitral Valve The mitral valve is normal in structure. Trace mitral regurgitation. No evidence of mitral valve stenosis. Tricuspid Valve The tricuspid valve is normal in structure. Trace tricuspid regurgitation. Pulmonic Valve The pulmonary valve is normal in structure. There is no pulmonic valvular regurgitation. Great Vessels The aortic root is normal in size. IVC [place] [address] 2 D/M-MODE ECHOCARDIOGRAM Name: LULI WOLF Room: [address] IN [facility]#: [id number] Admission: 04/25/19 Attend Phys: Yaya Thomas, Discharge: Date of : 59 Date of Service: 04/27/19 1445 Report #: [id number] collapses >50% with inspiration. Pericardium There is no pericardial effusion. <Conclusion> The left ventricle is normal size. There is normal left ventricular wall thickness. LVEF is 35%. Grade I - abnormal relaxation pattern. The right ventricle is normal size. The left atrium size is normal. Mild aortic valve sclerosis. No aortic regurgitation is present. There is no aortic valvular stenosis. The mitral valve is normal in structure. Trace mitral regurgitation. The tricuspid valve is normal in structure. IVC is normal in size and collapses >50% with inspiration. There is no pericardial effusion. There is distal septal and anteroapical hypo-akinesis. <ELECTRONICALLY SIGNED> By: Pepe Strong MD, FACC 04/27/19 1445 1445 1445 Pepe Strong MD, FACC /INF
--- NOTE | 2019-04-27 17:38 | CON ---
[address] [address] CONSULTATION Name: LULI WOLF Room: [address] IN M.R.#: [id number] Admission: 04/25/19 Attend Phys: Yaya Thomas MD Discharge: Date of : 59 Report #: [id number] THIS REPORT FOR: //name// CC: Yaya Thomas [facility] physician/PCP Pepe Strong DATE OF SERVICE: 04/25/2019 CARDIOLOGY CONSULTATION HISTORY OF PRESENT ILLNESS: The patient is a 63-year-old male with complex coronary artery disease, underlying tobacco habituation, and hyperlipidemia. He has had multiple recent anterior wall infarctions and has been noncompliant with antiplatelet therapy. Today, instead of taking his Plavix, was utilizing substances this evening including marijuana. He developed severe chest pain and was brought by emergency medical crew to [facility] Emergency Room where he was found to have acute anterior wall ST-segment elevation myocardial infarction with persistent chest pain. When I saw him, his pain persisted. He was tachycardic and mildly tachypneic. He complained of severe pain and mild nausea. The patient has undergone prior interventions at [facility] and the [facility] in the context of his complex coronary artery disease and noncompliance with antiplatelet therapy. PHYSICAL EXAMINATION: GENERAL: Reveals an acutely distressed, somewhat underweight, middle-aged male. VITAL SIGNS: Blood pressure is 90/60, pulse rate is 115, respirations are 18 per minute. NECK: Jugular venous pressure is normal. CHEST: Clear. CARDIAC: Reveals a rapid regular rhythm. ABDOMEN: Soft. EXTREMITIES: Satisfactorily perfused, but is slightly cool. LABORATORY DATA: Electrocardiogram reveals acute anterior wall ST-segment elevation myocardial infarction. IMPRESSION: 1. Acute anterior wall ST-segment myocardial infarction. 2. Complex coronary artery disease. 3. Medication noncompliance. 4. [place] [address] CONSULTATION Name: LULI WOLF Room: [address] IN [facility]#: [id number] Admission: 04/25/19 Attend Phys: Yaya Thomas MD Discharge: Date of : 59 Report #: [id number] RECOMMENDATIONS: 1. Heparin and aspirin have been administered. 2. Would plan catheterization with strong consideration of acute coronary intervention contingent on the findings of that study. 3. Strongly urged the patient regarding medication compliance and absence of substance abuse. It is 35 minutes from 2240 to 2315. <ELECTRONICALLY SIGNED> By: Pepe Strong MD, FACC 04/27/19 1738 2317 [id number] Strong MD, FACC /nt
--- NOTE | 2019-04-27 19:37 | NUR ---
I ASSUMED CARE OF THE PATIENT AT 0700. HE IS ALERT AND ORIENTED X4 AND IS UP WITH ASSIST OF 1 TO THE BS. BED IS IN THE LOW LOCKED POSITION AND CALL LIGHT IS IN REACH. HOURLY ROUNDING WAS COMPLETED AND PATIENT NEEDS WERE MET. PAIN IS MANAGED WITH PRN MEDS. ASSESSMENTS ARE CHARTED AND VITALS ARE MONITORED. HE IS PROGRESSING TOWARDS HIS GOALS. WILL CONTINUE TO MONITOR. BLOOD SUGAR IS MANAGED WITH INSULIN COVERAGE.
[2019-04-28] VITALS (15 sets, daily range): BP systolic 83–148; BP diastolic 48–91
--- NOTE | 2019-04-28 05:27 | NUR ---
PT. PROGRESSING TOWARDS GOALS. NO C/O CHEST PAIN THROUGHOUT SHIFT. PT. HAS SLEPT WELL THROUGHOUT SHIFT. REMAINS SINUS RHYTHM. URINAL TO VOID. BP'S WITHIN NORMAL LIMITS. UP STAND BY ASSIST. ROOM AIR. POSSIBLE DOWNGRADE TO TELEMETRY STATUS TODAY. CALL LIGHT REMAINS IN REACH, WILL CONTINUE TO MONITOR.
--- NOTE | 2019-04-28 09:29 | EKG ---
[place] [address] ELECTROCARDIOGRAM REPORT Name: DESMOND WOLF Room: [address] ADM IN M.R.#: [id number] Admission: 04/25/19 Attend Phys: Yaya Thomas MD Discharge: Date of : 59 Report #: [id number] THIS REPORT FOR: //name// [facility] Test Date: 2019-04-27 Test Time: 08:05:59 Pat Name: DESMOND WOLF Department: Room: [address] Gender: M Director Of Psychiatry: [facility] : 1955 Requested By: Pepe Strong Order Number: [id number] Tonja MD: Desmond Bermudez Measurements Intervals [place] Rate: 98 P: 35 ME: 125 QRS: -15 QRSD: 112 T: 106 QT: 404 QTc: 516 Interpretive Statements Sinus rhythm Probable anteroseptal infarct, recent Lateral leads are also involved Prolonged QT interval Compared to ECG 04/25/2019 21:26:10 Prolonged QT interval now present Sinus tachycardia no longer present Myocardial infarct finding still present Electronically Signed On 04-28-2019 9:28:50 DIRECTOR OF CASEWORK by Desmond Bermudez [email or web address] <ELECTRONICALLY SIGNED> By: Desmond Bermudez MD, FACC 04/28/19 0928 4 4 Desmond Bermudez MD, FAC /EPI
--- NOTE | 2019-04-28 11:19 | NUR ---
PT.TO DISCHARGE TODAY. WAITING ON . NURSING SAID MONA/CARDIOLOGY NURSE BROUGHT PT. SAMPLES OF BRILLINTA. TOLD HIM TO CALL WHEN HE RUNS OUT AND THEY CAN GIVE HIM MORE. CM CALLED PT.'S PHARMACY-[facility] [id number]. SPOKE WITH KELLY,WHO LOOKED UP PT.PROFILE. SHE SAID HIS PRESCRIPTIONS THAT HE GETS FILLED THERE USUALLY GO THROUGH HIS PRIMARY INSURANCE AND HE NORMALLY GETS THEM AT NO CHARGE. THEY DO HAVE HIS MEDICAID LISTED BUT SHE SAID THEY USUALLY DON'T NEED TO USE IT. PT.INFORMED. MOTHER AT BEDSIDE. HE SAID HE GETS HIS INSULIN PRETTY CHEAP TOO. HE USES INSULIN PENS. DISCUSSED IMPORTANCE OF KEEPING DM IN CONTROL TO PREVENT COMPLICATIONS.HE SAID HE DOES HAVE SOME NEUROPATHY IN FEET. 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 HE SAID HE IS SUPPOSED TO GET HIS DIABETES IN BETTER CONTROL BEFORE THEY WILL DO THE SURGERY. TOLD HIM ABOUT DIABETES PROGRAM HELD IN ED CENTER ON MAY.19 AT NO CHARGE. HE SAID HE MIGHT COME TO IT. PUT ON HIS DISCHARGE INSTRUCTIONS. HE ALSO COMPLAINED ABOUT HIS LACK OF TEETH. ENCOURAGED HIM TO USE [facility]. HE SAID HE CAN ALSO GO TO [place]. HE SEEMED GLAD TO BE GOING HOME. LAUGHING AND TALKING.
[2019-04-28] MEDS ORDERED: BRILINTA90 MG PO (11:39)
[2019-04-28] MEDS ORDERED: SPIRONOLACTONE25 M1 PO (11:41)
[2019-04-28] MEDS ORDERED: TOPROL XL50 MG PO (14:23)
--- NOTE | 2019-04-28 15:18 | NUR ---
[facility]. [facility] EDUACATION PROVIDED. PT LEFT THE UNIT UNIT AT 1510 WITH HIS SISTER.
== END 2019-04-28 15:15 | disposition home or self-care (01) | DRG 248 ==
LOC: M.CL 21:12 → M.ERS 21:12 → M.TBA-CV 23:10 → M.ICU 23:10
PROVIDERS: Emergency Medicine; Internal Medicine; ADMIT Internal Medicine
PROC: 4A023N7 Measurement of Cardiac Sampling and Pressure, Left Heart, Percutaneous Approach (ICD-10-PCS; principal; 2019-04-25)
PROC: 02703DZ Dilation of Coronary Artery, One Artery with Intraluminal Device, Percutaneous Approach (ICD-10-PCS; principal; 2019-04-25)
PROC: B2111ZZ Fluoroscopy of Multiple Coronary Arteries using Low Osmolar Contrast (ICD-10-PCS; principal; 2019-04-25)
DX: T82.867A Thrombosis due to cardiac prosthetic devices, implants and grafts, initial encounter (principal); I21.09 ST elevation (STEMI) myocardial infarction involving other coronary artery of anterior wall; N17.0 Acute kidney failure with tubular necrosis; E43 Unspecified severe protein-calorie malnutrition; K86.1 Other chronic pancreatitis; E87.1 Hypo-osmolality and hyponatremia; Y83.8 Other surgical procedures as the cause of abnormal reaction of the patient, or of later complication, without mention of misadventure at the time of the procedure; Y92.89 Other specified places as the place of occurrence of the external cause; I25.10 Atherosclerotic heart disease of native coronary artery without angina pectoris; E03.9 Hypothyroidism, unspecified; G89.29 Other chronic pain; F17.210 Nicotine dependence, cigarettes, uncomplicated; E78.5 Hyperlipidemia, unspecified; I95.9 Hypotension, unspecified; R00.0 Tachycardia, unspecified; E11.65 Type 2 diabetes mellitus with hyperglycemia; E87.5 Hyperkalemia; E78.1 Pure hyperglyceridemia; D64.9 Anemia, unspecified; J43.9 Emphysema, unspecified; I25.2 Old myocardial infarction; Z79.01 Long term (current) use of anticoagulants; Z90.89 Acquired absence of other organs; Z79.4 Long term (current) use of insulin; Z95.5 Presence of coronary angioplasty implant and graft; Z79.899 Other long term (current) drug therapy; Z79.82 Long term (current) use of aspirin; Z79.84 Long term (current) use of oral hypoglycemic drugs; Z91.19 Patient's noncompliance with other medical treatment and regimen; Z68.29 Body mass index [BMI] 29.0-29.9, adult; Z71.6 Tobacco abuse counseling

== ENCOUNTER 2019-06-12 10:14 | Observation (INO) | payer MEDICARE, MEDICAID ==
[~2019-06-12] VITALS: Ht 172.7 cm; Wt 77.1 kg
[2019-06-12] VITALS (8 sets, daily range): BP systolic 89–116; BP diastolic 57–82
[~2019-06-12 10:14] MED LIST changes: +BRILINTA90 MG PO; +SPIRONOLACTONE25 M1 PO; +TOPROL XL50 MG PO
[2019-06-12] MEDS ORDERED: LEVEMIR100 UNIT/1 (10:26)
[2019-06-12 10:57] LABS: ABSOLUTE BASOPHILS 0.1 thou/uL (0.0-0.2); ABSOLUTE EOSINOPHILS 0.3 thou/uL (0.0-0.7); ABSOLUTE LYMPHOCYTES 1.8 thou/uL (0.8-5.3); ABSOLUTE MONOCYTES 0.8 thou/uL (0.0-1.2); ABSOLUTE NEUTROPHILS 4.5 thou/uL (1.6-8.1); BASOPHILS 0.7 %; HEMATOCRIT 33.2 % (42.0-52.0); HEMOGLOBIN 11.5 gm/dL (14.0-18.0); LYMPHOCYTES 24.4 %; MCH 31.5 pg (26.0-34.0); MCHC 34.5 g/dL (28.0-37.0); MCV 91.3 fL (80.0-100.0); MONOCYTES 10.9 %; MPV 7.8 fl. (7.2-11.1); NUCLEATED RBCS 0 /100WBC; PLATELET COUNT* 260 thou/uL (150-400); RBC 3.64 mil/uL (4.50-6.00); RDW-CV 13.7 % (10.5-14.5); WBC 7.6 thou/uL (4.0-11.0)
[2019-06-12 11:06] LABS: APTT 24.3 Seconds (25.0-31.3); INR 1.1; PROTIME 11.6 Seconds (9.20-11.50)
[2019-06-12 12:14] LABS: CHLORIDE ND mmol/L (98-107); POTASSIUM ND mmol/L (3.5-5.1); SODIUM ND mmol/L (136-145)
[2019-06-12 12:15] LABS: ANION GAP ND mmol/L (7-16); CO2 ND mmol/L (21-32)
[2019-06-12 12:16] LABS: BUN ND mg/dL (7-18); CREATININE ND mg/dL (0.6-1.3); GLUCOSE ND mg/dL (70-99); SGOT ND U/L (15-37)
[2019-06-12 12:17] LABS: ALKALINE PHOSPHATASE ND U/L (46-116); CALCIUM ND mg/dL (8.5-10.1); TOTAL BILIRUBIN ND mg/dL (<0.1-1.0)
[2019-06-12 12:18] LABS: ALBUMIN ND g/dL (3.4-5.0); SGPT ND U/L (30-65); TOTAL PROTEIN ND g/dL (6.4-8.2)
[2019-06-12 12:19] LABS: NT-PRO BRAIN NAT PEPTIDE ND pg/mL (<300)
[2019-06-12 12:29] LABS: ALBUMIN 3.6 g/dL (3.4-5.0); CALCIUM 8.2 mg/dL (8.5-10.1); CREATININE 1.4 mg/dL (0.6-1.3); POTASSIUM 4.7 mmol/L (3.5-5.1); TOTAL BILIRUBIN 0.2 mg/dL (<0.1-1.0); TOTAL PROTEIN 6.7 g/dL (6.4-8.2)
--- NOTE | 2019-06-12 15:06 | EKG ---
[place] [address] ELECTROCARDIOGRAM REPORT Name: LULI WOLF Room: [address] M.R.#: [id number] Admission: 06/12/19 Attend Phys: Pepe Strong MD, Discharge: Date of : 59 Report #: [id number] THIS REPORT FOR: //name// [facility] ED Test Date: 2019-06-12 Test Time: 10:25:01 Pat Name: LULI WOLF Department: Room: [facility] Gender: M Sales Order Processor: [facility] : 1955 Requested By: Roslyn Pritchett Order Number: [id number] MD: Sheldon Fernandez Measurements Intervals [place] Rate: 74 P: 15 NC: 150 QRS: -5 QRSD: 109 T: 85 QT: 433 QTc: 481 Interpretive Statements Sinus rhythm Anteroseptal infarct, age indeterminate Compared to ECG 04/27/2019 08:05:59 Prolonged QT interval no longer present Myocardial infarct finding still present Electronically Signed On 06-12-2019 15:05:32 [employer] CREW MEMBER by Sheldon Fernandez [email or web address] <ELECTRONICALLY SIGNED> By: Sheldon Fernandez MD, [facility] 06/12/19 1505 1025 1025 Sheldon Fernandez MD, [facility] /EPI
--- NOTE | 2019-06-12 15:10 | EKG ---
[place] [address] ELECTROCARDIOGRAM REPORT Name: LULI WOLF Rajni Room: [address] M.R.#: [id number] Admission: 06/12/19 Attend Phys: Pepe Strong MD, Discharge: Date of : 59 Report #: [id number] THIS REPORT FOR: //name// [facility] ED Test Date: 2019-06-12 Test Time: 10:31:46 Pat Name: LULI WOLF Department: Room: [facility] Gender: M Credit Card Control Clerk: [facility] : 1955 Requested By: Roslyn Pritchett Order Number: [id number] MD: Sheldon Fernandez Measurements Intervals [place] Rate: 73 P: 13 UT: 149 QRS: -12 QRSD: 110 T: 89 QT: 418 QTc: 461 Interpretive Statements Sinus rhythm Anteroseptal infarct, age indeterminate Compared to ECG 04/27/2019 08:05:59 Prolonged QT interval no longer present Myocardial infarct finding still present Electronically Signed On 06-12-2019 15:09:49 MANAGER FIELD by Sheldon Fernandez [email or web address] <ELECTRONICALLY SIGNED> By: Sheldon Fernandez MD, [facility] 06/12/19 1509 1031 1031 Sheldon Fernandez MD, [facility] /EPI
--- NOTE | 2019-06-12 15:15 | NUR ---
ADMIT FROM CARDIAC CATH PATIENT TO VIA BED TELEPHONE REPORT GIVEN PRIOR TO ARRIVAL PATIENT RESTING COMFORTABLY R GROIN SITE WITH SMALL AMT OF BLD AND PARAMETERS MARKED PATIENT INSTRUCTED TO LAY FLAT AND NOT GET UP WITH ASSIST INSTRUCTED EMERGING TECHNOLOGIES DIRECTOR LIGHT USE AT BEDSIDE
--- NOTE | 2019-06-12 16:08 | CARD ---
[address] [address] CARDIAC CATH REPORT Name: LULI WOLF Room: [address] M.R.#: [id number] Admission: 06/12/19 Attend Phys: Pepe Strong MD, Discharge: Date of : 59 Report #: [id number] THIS REPORT FOR: //name// APPROVED REPORT Study performed: 06/12/2019 11:23:40 Patient Details Patient Status: ED Room #: The patient is a 63 year-old male Event Personnel Pepe Strong Computer Repair Instructor, Betina Isaac RN Respiratory Support Technician, Calvin LópezIS Scrub, Hallie Mccollum RTR Monitor Procedures Performed Art Access - R femoral artery, Left Heart Cath w/or w/o Coronaries LHC, INSTRUCTOR TECHNICAL TRAINING/ JUAN Place w/wo Plasty Single LAD, Hemostasis w/ Angioseal Indication Unstable angina Risk Factors Hypercholesterolemia, Hypertension, Tobacco History () Previous Procedures/Diagnoses Previous PCI, Previous AR Admission/Lab Medications/Medications given during procedure Oxygen Nasal cannula 2 l per min, Angiomax IV bolus , Angiomax IV 27.79 mg per kg, Angiomax IV bolus 4 mg per kg12 mg per kg, Nitroglycerin IC 200 mcg total, Effient PO 60 mg, Aspirin PO 162 mg Procedure Narrative The patient was brought urgently to the Cardiac Catheterization Laboratory and was prepped and draped in a sterile manner. The right femoral groin was infiltrated with 2% Lidocaine subcutaneous anesthesia. A 6F Burke sheath was inserted into the right femoral artery. Coronary angiography was performed using coronary diagnostic catheters. The right coronary system was accessed and visualized with a 6F JR4 catheter. The left coronary system was accessed and visualized with a 6F JL4 catheter. The left ventricle was accessed and visualized with a 6F Pigtail catheter. Left ventricular/[place] [id number] CARDIAC CATH REPORT Name: LUCIANOLULI Rajni Room: [address]#: [id number] Admission: 06/12/19 Attend Phys: Pepe Strong MD, Discharge: Date of : 59 Report #: [id number] Valve gradient assessed via catheter pullback. Left ventriculogram was performed in YANG projection. Pre-demployment femoral angiogram was performed . Closure device was deployed with a 6 Fr Angioseal STS. The patient tolerated the procedure well and there were no complications associated with the procedure. There was no hematoma. Intraoperative Conscious Sedation Sedation start time: 13:01 Case end Time: 14:33 Fentanyl 100 mcg Versed 1 mg Fluoro Time: 36.3 minutes Dose: DAP [id number] cGycm2 2953 mGy Contrast Type and Amount: Visipaque 450 ml Diagnostic Cath Left Main 0% narrowing LAD 100% chronic total occlusion of the proximal LAD with left to left and [id number] collaterals filling a skeleton of the distal LAD and prominent diagonal Circumflex 80% mid vessel narrowing and a 60% proximal first marginal branch narrowing Right Coronary Large dominant vessel with 30% proximal and mid vessel narrowing with collaterals through the septum to the LAD Left Ventriculography The left ventricle is normal in size with contractility. The left ventricular ejection fraction is estimated to be 35-40%. Left ventricular wall motion abnormalities are present. There is no mitral insufficiency. There is anterolateral and apical hypokinesis noted Hemodynamics The aortic pressure is 117/58 mmHg with a mean of 80 mmHg. The left ventricular pressure is 117/8 mmHg with a mean of mmHg. The left ventricular end diastolic pressure is 22 mmHg. There was no gradient across the aortic valve upon pullback. PCI Technique Lesion Anticoagulation was achieved with Angiomax. Patient was preloaded with Angiomax IV 12 mg per kg. Percutaneous coronary intervention was performed on the proximal left anterior descending artery segment. The lesion stenosis prior to intervention was 100% with PACHECO 0 flow. A 6F XB LAD 3.5 Guide Catheter was used to engage the ostium. A ProwaterFlex 180CM Interventional Guide[place] [id number] CARDIAC CATH REPORT Name: LULI WOLF Room: [address] Bhumi M.R.#: [id number] Admission: 06/12/19 Attend Phys: Pepe Strong MD, Discharge: Date of : 59 Report #: [id number] lesion. BALLOON DILATION A Balloon catheter Mini Trek RX 1.20X12 was inserted and inflated up to 16.00atm for 8seconds. Additional Inflation: 18.00atm for 6seconds. Additional Inflation: 18.00atm for 5seconds. A 2.0 x 15 Mini Trek RX balloon catheter was inserted and inflated up to 14 jerzy for 4 seconds. Additional Inflations: 14 jerzy for 4 seconds, 14 jerzy for 8 seconds, 14 jerzy for 6 seconds, and 14 jerzy for 9 seconds. A 2.25 x 12 Trek RX balloon catheter was inserted and inflated up to 10 jerzy for 7 seconds. Additional inflations: 10 jerzy for 6 seconds, 14 jerzy for 6 seconds, 16 jerzy for 7 seconds, and 16 jerzy for 7 seconds. STENT DEPLOYMENT A drug-eluting stent 2.25 X 30 ORSIRO RX JUAN was inserted and inflated up to 8atm for 8seconds. Additional Inflation: 10atm for 5seconds. Final angiography reveals 10 % stenosis with PACHECO 3 flow. COMMENTS A BMW 300 cm guidewire was inserted 1st Diagonal artery. A Finecross micro catheter was utilized due to INSTRUCTOR TECHNICAL TRAINING lesion. Several wires used in getting a wire inserted in LAD artery. These wires included Fielder XT 190 cm, ProwaterFlex 180 cm, BMW 190 cm, Miraclebros 3 180 cm. I was able to traverse the proximal chronic total occlusion with miracl bro 3 and the final part with a Fielder XT. I placed this in the distal diagonal and exchanged for a soft BMW wire. After recanalization of the proximal LAD, I placed a soft wire in the distal LAD and the procedure was completed over this second wire placed in the LAD PCI Technique Lesion 2 Percutaneous Coronary Intervention was performed on the mid left anterior descending artery segment. Stent Deployment A drug-eluting stent Loving RX Stent 2.0X8mm was inserted and inflated up to 10atm for 14seconds. Additional Inflation: 12atm for 7seconds. Post Stent Deployment Balloon Dilation A Balloon catheter NC Trek RX 2.75 X 12 was inserted and inflated up to 14atm for 6seconds. Additional Inflation: 18atm for 5seconds. Additional Inflation: 18atm for 8seconds. [place] [id number] CARDIAC CATH REPORT Name: LULI WOLF Room: [address]#: [id number] Admission: 06/12/19 Attend Phys: Pepe Strong MD, Discharge: Date of : 59 Report #: [id number] Conclusion #1 significant multivessel coronary artery disease characterized by the following: A 100% chronic total occlusion of the proximal LAD with left to left and [id number] collaterals filling a skeleton of the distal LAD and prominent diagonal B 80% mid circumflex narrowing with 60% proximal first marginal narrowing C large dominant right coronary artery with 30% proximal and mid vessel narrowing with collaterals through the septum to the LAD #2 moderate elevation of left ventricular end-diastolic pressure at rest #3 moderate reduction in global left ventricular systolic function, estimate ejection fraction being 35-40% with anterolateral and apical hypokinesis #4 successful recanalization of the chronic total occlusion of the proximal LAD with stenting of this vessel; there was 10% residual following stent deployment and PACHECO-3 flow to the distal LAD Recommendations Smoking Cessation Cardiac Risk Reduction Program Aggressive Medical Therapy Medications Administered Aspirin (any) Prasugrel <ELECTRONICALLY SIGNED> By: Pepe Strong MD, FACC 06/12/19 1608 1608 [id number] Strong MD, FACC /INF
--- NOTE | 2019-06-12 16:30 | NUR ---
PATIENTS BED ALARM ALARMING PATIENT UP OUT OF BED, PULLED CAMERON URINE ALL IN BED AND ON FLOOR PATIENT YELLING LOUDLY IT HURTS, IT HURTS STAFF TO BEDSIDE AND TRYING TO CALM PATIENT DOWN AND ASSESS THE SITUATION PATIENT ASKED TO LAY DOWN IN BED PATIENT REFUSING PATIENT TOLD HE NEEDS TO LAY DOWN AND REMAIN FLAT PER DR ORDERS PATIENT ASSISTED TO BED PATIENT UNCOOPERATIVE AND HOSTILE, AND STILL YELLING AND CURSING AT STAFF R GROIN SITE ASSESSED REMAINS SOFT AND SAME, SMALL AMT OF DRY BLOOD ON GAUZE DRESSING SECURITY TO ROOM TO ASSIST WITH PATIENTS BEHAVIOR PATIENT BEGINNING TO CALM DOWN PATIENT CLEANED AND BED LINENS CHANGED AND EVS CALLED TO CLEAN URINE ON FLOOR WILL CONTINUE TO MONITOR PATIENT BED ALARM SET AND AT BEDSIDE
--- NOTE | 2019-06-12 17:45 | NUR ---
NURSE CALLED TO PATIENT PULLED IV OUT BLOOD ON PATIENT AND BED PATIENT YELLING AND CURSING UNINTELLGIBLE STAFF AT BEDSIDE TRYING TO CALM PATIENT DOWN PATIENT COMPLAINING OF DISCOMFORT AT PENIS AND CAMERON CATHETER SITE PENIS AND CAMERON CATHETER ASSESSED APPEARS TO BE ALRIGHT YELLOW URINE IN LINE AND BAG PATIENT TOLD WILL NEED ANOTHER IV PLACED AND SEVERAL ATTEMPTS MADE UNSUCCESSFULLY PATIENT VERY UNCOOPERATIVE WILL CONTACT PRODUCT GRADER TO PLACE IV AND DISCUUS NEED FOR A SITTER FOR PATIENT
--- NOTE | 2019-06-12 18:15 | NUR ---
DR MARTIN ROUNDING ON FLOOR AND ASKED TO SEE PATIENT DUE TO IRRADICT BEHAVIOR ORDER FOR A UDS NO FURTHER ORDERS GIVEN AT THIS TIME WILL CONTINUE TO MONITOR
--- NOTE | 2019-06-12 18:30 | NUR ---
PATIENT STILL COMPLAINING OF PAIN AT CAMERON CATHETER SITE NURSE ASSESSED CAMERON NOT MUCH URINE OUT WITHIN THE LAST HOUR DEFALTED BALLOON AND ADVANCED CATHETER FURTHER WITHOUT ANY URINE PRODUCTION PATIENT SCREAMING IN PAIN AND ASKING FOR CATHETER TO BE REMOVED AFTER SOMETIME AND NO URINE OUTPUT THE CAMERON CATHETER WAS REMOVED PATIENT INSTRUCTED TO LET STAFF KNOW WHEN HE NEEDED TO URINATE WILL CONTINUE TO MONITOR PATIENT NOW HAS A SITTER IN ROOM WITH HIM
[2019-06-12 20:18] LABS: AMP/METHAMP POSITIVE (Negative); BARBITURATES Negative (Negative); BENZODIAZEPINES POSITIVE (Negative); COCAINE Negative (Negative); METHADONE Negative (Negative); OPIATES Negative (Negative); PCP Negative (Negative); THC POSITIVE (Negative)
[2019-06-13] VITALS (7 sets, daily range): BP systolic 87–112; BP diastolic 53–85
[2019-06-13 05:58] LABS: HEMATOCRIT 31.3 % (42.0-52.0); HEMOGLOBIN 10.9 gm/dL (14.0-18.0); MCH 31.8 pg (26.0-34.0); MCHC 34.9 g/dL (28.0-37.0); MCV 91.2 fL (80.0-100.0); MPV 7.6 fl. (7.2-11.1); RBC 3.43 mil/uL (4.50-6.00); WBC 7.3 thou/uL (4.0-11.0)
[2019-06-13 06:48] LABS: ALBUMIN 3.3 g/dL (3.4-5.0); ALKALINE PHOSPHATASE 41 U/L (46-116); ANION GAP 7 mmol/L (7-16); BUN 19 mg/dL (7-18); CALCIUM 8.2 mg/dL (8.5-10.1); CHLORIDE 107 mmol/L (98-107); CO2 25 mmol/L (21-32); CREATININE 1.2 mg/dL (0.6-1.3); GLUCOSE 134 mg/dL (70-99); POTASSIUM 4.4 mmol/L (3.5-5.1); SERUM ASSESSMENT Clear; SGOT 19 U/L (15-37); SGPT 26 U/L (30-65); SODIUM 139 mmol/L (136-145); TOTAL BILIRUBIN 0.3 mg/dL (<0.1-1.0); TOTAL PROTEIN 6.4 g/dL (6.4-8.2); TROPONIN-I LEVEL 0.23 ng/mL (<0.06)
[2019-06-13 06:59] LABS: CHOLESTEROL 62 mg/dL (<200); HDL CHOLESTEROL 20 mg/dL (>40); LDL CHOLESTEROL 18 mg/dL (<100); TC:HDL 3.1 Ratio (Not establshd); TRIGLYCERIDE 123 mg/dL (<150); VLDL 25 mg/dL (<40)
--- NOTE | 2019-06-13 10:16 | H ---
[address] [address] HISTORY AND PHYSICAL Name: LULI WOLF Room: [address] M.R.#: [id number] Admission: 06/12/19 Attend Phys: Pepe Strong MD, Discharge: Date of : 59 Report #: [id number] THIS REPORT FOR: //name// CC: Araceli Sierraie Shreyas DATE OF SERVICE: 06/12/2019 HISTORY OF PRESENT ILLNESS: The patient is a 63-year-old male with complex coronary artery disease, status post multiple recent anterior wall myocardial infarctions on 2 occasions related to stent thrombosis and one of these related to medication noncompliance. When I last saw him on 05/28/2019, he noted some recurrent chest discomfort, severe. He presents to the ER today with recurrent chest pain similar to prior ischemic syndrome, but does not have electrocardiographic changes reflecting acute injury. At the time of most recent catheterization, I stented the LAD and he was also noted to have 80-90% stenosis in the circumflex. This was not approached in the acute setting. The patient has underlying diabetes and hyperlipidemia. MEDICATIONS: Include aspirin, atorvastatin, Zetia, fenofibrate, fish oil, insulin, L-thyroxine, metformin, metoprolol, spironolactone, and ticagrelor. PAST MEDICAL HISTORY: Remarkable for coronary artery disease, the aforementioned risk factors, and pancreatitis. FAMILY HISTORY: Remarkable for his father requiring coronary bypass grafting. SOCIAL HISTORY: The patient is , smokes 5-10 cigarettes per day. PHYSICAL EXAMINATION: GENERAL: Reveals a mildly distressed male complaining of left shoulder discomfort. VITAL SIGNS: Blood pressure 140/70, pulse rate 74, respirations 18 per minute. NECK: Jugular venous pressure is normal. CHEST: Clear. CARDIAC: Reveals normal first and second heart sounds with a question of S4 gallop, without rubs or murmurs. ABDOMEN: Soft. EXTREMITIES: Without edema with intact femoral, pedal and radial pulses. LABORATORY DATA: Electrocardiogram reveals sinus rhythm, old anteroseptal infarction and no acute ischemic changes. IMPRESSION: [place] [address] HISTORY AND PHYSICAL Name: LULI WOLF Room: [address]#: [id number] Admission: 06/12/19 Attend Phys: Pepe Strong MD, Discharge: Date of : 59 Report #: [id number] 1. Coronary artery disease, status post multiple prior myocardial infarctions. 2. Recurrent chest pain compatible with unstable angina. 3. Diabetes. 4. Hypertension. 5. Hypercholesterolemia. 6. Tobacco habituation. RECOMMENDATIONS: Admission with urgent catheterization to define current coronary anatomy and prospects for subsequent therapeutic modification. CRITICAL CARE TIME: 35 minutes from 1145 to 1220 on 06/12/2019. <ELECTRONICALLY SIGNED> By: Pepe Strong MD, [facility] 06/13/19 1016 1220 [id number] Strong MD, FACC /nt
[2019-06-13] MEDS ORDERED: ASA81BEC PO (11:02)
--- NOTE | 2019-06-13 11:17 | EKG ---
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1955 Requested By: Pepe Strong Order Number: [id number] Tonja MD: Sheldon Fernandez Measurements Intervals [place] Rate: 65 P: 31 MI: 164 QRS: -3 QRSD: 119 T: 68 QT: 437 QTc: 455 Interpretive Statements Sinus rhythm Nonspecific intraventricular conduction delay Anteroseptal infarct, old Compared to ECG 06/12/2019 10:31:46 Intraventricular conduction delay now present Myocardial infarct finding still present Electronically Signed On 06-13-2019 11:17:22 PHOTOGRAPHIC MACHINE OPERATOR by Sheldon Fernandez [email or web address] <ELECTRONICALLY SIGNED> By: Sheldon Fernandez MD, [facility] 06/13/19 1117 1526 1526 Sheldon Fernandez MD, [facility] /EPI
--- NOTE | 2019-06-13 11:21 | EKG ---
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[place] : 1955 Requested By: Pepe Strong Order Number: [id number] Tonja MD: Sheldon Fernandez Measurements Intervals [place] Rate: 74 P: 7 AR: 155 QRS: -5 QRSD: 111 T: 86 QT: 412 QTc: 457 Interpretive Statements Sinus rhythm Probable anterior infarct, age indeterminate Compared to ECG 06/12/2019 10:31:46 No significant changes Electronically Signed On 06-13-2019 11:20:26 RAG BALER by Sheldon Fernandez [email or web address] <ELECTRONICALLY SIGNED> By: Sheldon Fernandez MD, [facility] 06/13/19 1120 0445 044 Sheldon Fernandez MD, FACC /EPI
[2019-06-13] MEDS ORDERED: PRASUGREL HCL10 MG PO (12:02)
--- NOTE | 2019-06-13 12:40 | NUR ---
assumed pt care report received from nurse. pt is aox4 forgetful and agitated. on ra. o2 saturation is 99%. bp soft. ns infusing at 40 per hour. r groin is intact. up ad good. no complaint. discahrge ordered. dc instruction given to pt at time of discharge. iv line removed. wire straightener retrieved. bp rechecked. pt left floor accompanied by nurse and sister on wheelchair.
--- NOTE | 2019-06-23 16:02 | D ---
[address] [address] DISCHARGE SUMMARY Name: LULI WOLF Room: [address] Bhumi MFrida#: [id number] Admission: 06/12/19 Attend Phys: Pepe Strong MD, Discharge: 06/13/19 Date of : 59 Report #: [id number] THIS REPORT FOR: //name// CC: Araceli Strong Roslyn Weberiego DATE OF SERVICE: 06/13/2019 FINAL DISCHARGE DIAGNOSES: 1. Unstable angina. 2. Coronary artery disease. 3. Status post prior anterior infarctions. 4. Hyperlipidemia. 5. Hypertension. 6. Tobacco use. PROCEDURES: On 06/12/2019 -- left heart catheterization, left ventriculography, selective coronary arteriography and percutaneous coronary intervention with recanalization of chronic total occlusion of the proximal LAD with deployment of two drug-eluting stents. The patient is a 63-year-old male with a history of multiple prior anterior infarctions, on two occasions, stent thrombosis and one clearly related to medication noncompliance. He presented to the ER yesterday with recurrent chest discomfort felt to be ischemic in origin. In the context of known coronary artery disease and risk factors of hypertension, hyperlipidemia and tobacco habituation, and for recatheterization on 06/12/2019, that study revealed 100% occlusion of the proximal LAD and the stented site with some collateral filling of the distal LAD and diagonal from left to left and right to left collaterals. The circumflex revealed 60% first marginal and 80% posterior division narrowing with tandem 30% proximal and mid right coronary narrowings with some collaterals through the septum from right to the LAD. I then performed recanalization of the chronic total occlusion of the proximal LAD penetrating the proximal cap with a MiracleBros 3 wire and subsequently traversing the final area of total occlusion with a Fielder XT, which was placed in the distal LAD in exchange for a soft tip wire. I then dilated with sequentially larger balloons and ultimately placing a 2.5 x 30 mm drug-eluting stent in the proximal LAD with a 2.0 x 8 post-dilated 2.25 just distal to this with final post-dilatation of the entire stented region with a 3.75 x 12 mm NC Trek from 12-20 atmospheres. There was 10% residual narrowing with PACHECO 3 flow of the distal vessel and modest disease in the mid and distal portions of [place] [address] DISCHARGE SUMMARY Name: LUCIANOLULI Rajni Room: [address] Bhumi Bartholomew#: [id number] Admission: 06/12/19 Attend Phys: Pepe Strong MD, Discharge: 06/13/19 Date of : 59 Report #: [id number] He did well post-procedurally. Laboratory on 06/13/2019 revealed a sodium 139, potassium of 4.4, BUN 19, creatinine 1.2, glucose 134 mg percent. White blood cell count 7300, hemoglobin 10.9, platelets 222,000. There was good hemostasis at the right femoral site of catheterization. The patient ambulated in the hallways without difficulty. MEDICATIONS: Include the following: Aspirin 81 mg daily, atorvastatin 40 mg at bedtime, fish oil 4000 mg daily, docusate 100 mg b.i.d., Zetia 10 mg daily, fenofibrate 160 mg daily, NovoLog insulin 22 units subcutaneously at meals, Levemir insulin varying dose schedule daily, Levoxyl 175 mcg daily, lisinopril 5 mg daily, metformin 1000 mg b.i.d. to be resumed on 06/15/2019, metoprolol succinate 50 mg daily, prasugrel 10 mg daily, and spironolactone 25 mg daily. Previously utilized ticagrelor or Brilinta will be discontinued with the use of prasugrel and aspirin as dual antiplatelet therapy. The patient is scheduled to return to see my nurse practitioner, Khadijah Jacobo, on 06/25/2019. Therefore, the patient is discharged to home in stable condition on the aforementioned medications with followup as described above. <ELECTRONICALLY SIGNED> By: Pepe Strong MD, [facility] 06/23/19 1602 1004 [id number] Strong MD, [facility] /nt
== END 2019-06-13 12:14 | disposition home or self-care (01) ==
LOC: M.CL 10:14 → M.ERS 10:14 → M.2W 12:43 → M.TBA-CV 12:43 → M.2W 15:30
PROVIDERS: Internal Medicine Cardiovascular Disease; Personal Emergency Response Attendant; ADMIT Internal Medicine
DX: I25.110 Atherosclerotic heart disease of native coronary artery with unstable angina pectoris (principal); E78.5 Hyperlipidemia, unspecified; I10 Essential (primary) hypertension; I25.2 Old myocardial infarction; F17.200 Nicotine dependence, unspecified, uncomplicated

== ENCOUNTER 2019-11-20 08:56 | Observation (INO) | payer MEDICARE ==
[~2019-11-20] VITALS: Ht 172.7 cm; Wt 80.3 kg
[2019-11-20] VITALS (15 sets, daily range): BP systolic 85–140; BP diastolic 50–87
[~2019-11-20 08:56] MED LIST changes: +ASA81BEC PO; +LEVEMIR100 UNIT/1 SUBQ; +PRASUGREL HCL10 MG PO
[2019-11-20 09:25] LABS: ABSOLUTE BASOPHILS 0.1 thou/uL (0.0-0.2); ABSOLUTE EOSINOPHILS 0.2 thou/uL (0.0-0.7); ABSOLUTE MONOCYTES 1.1 thou/uL (0.0-1.2); ABSOLUTE NEUTROPHILS 7.2 thou/uL (1.6-8.1); BASOPHILS 0.6 %; EOSINOPHILS 1.5 %; HEMATOCRIT 38.2 % (42.0-52.0); HEMOGLOBIN 12.9 gm/dL (14.0-18.0); LYMPHOCYTES 25.9 %; MCH 31.4 pg (26.0-34.0); MCHC 33.9 g/dL (28.0-37.0); MCV 92.7 fL (80.0-100.0); MONOCYTES 9.5 %; MPV 7.5 fl. (7.2-11.1); NUCLEATED RBCS 0 /100WBC; PLATELET COUNT* 284 thou/uL (150-400); POLYS 62.5 %; RBC 4.12 mil/uL (4.50-6.00); RDW-CV 13.9 % (10.5-14.5); WBC 11.5 thou/uL (4.0-11.0)
[2019-11-20 09:32] LABS: CALCIUM 9.3 mg/dL (8.5-10.1); CREATININE 1.9 mg/dL (0.6-1.3); POTASSIUM 3.4 mmol/L (3.5-5.1)
[2019-11-20 09:34] LABS: APTT 18.9 Seconds (25.0-31.3); INR 1.2
[2019-11-20 09:44] LABS: ALBUMIN 4.5 g/dL (3.4-5.0); MAGNESIUM 1.9 mg/dL (1.8-2.4); TOTAL BILIRUBIN 0.5 mg/dL (<0.1-1.0); TOTAL PROTEIN 8.3 g/dL (6.4-8.2)
--- NOTE | 2019-11-20 09:58 | NUR ---
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
--- NOTE | 2019-11-20 10:16 | H ---
[address] [address] HISTORY AND PHYSICAL Name: LULI WOLF Room: [facility]#: [id number] Admission: 11/20/19 Attend Phys: Discharge: Date of : 59 Report #: [id number] THIS REPORT FOR: //name// cc: [facility] physician unknown [facility] physician unknown ~ THIS REPORT FOR: //name// CC: Rehan Washington [facility] unknown [facility] DATE OF SERVICE: 11/20/2019 CARDIOLOGY ADMITTING HISTORY AND PHYSICAL HISTORY OF PRESENT ILLNESS: The patient is a pleasant 64-year-old male with complex coronary artery disease, status post multiple prior anterior infarctions on 2 occasions related to noncompliance with dual antiplatelet therapy. He is left with ischemic cardiomyopathy, ejection fraction of 30-35%. Recently, he has noted recrudescence of chest pain, particularly with exertion, typical of his prior angina. The patient has underlying diabetes, hypertension, hyperlipidemia. MEDICATIONS: Have included aspirin, atorvastatin, Zetia, fenofibrate, fish oil, insulin, L-thyroxine, lisinopril, metformin, metoprolol succinate as well as prasugrel and spironolactone. PAST MEDICAL HISTORY: Remarkable for the aforementioned risk factors. PHYSICAL EXAMINATION: GENERAL: Demonstrates a mildly distressed male. VITAL SIGNS: Blood pressure is 130/70, pulse rate is 84, respirations are 18 per minute. NECK: Jugular venous pressure is normal. CHEST: Clear. CARDIAC: Reveals normal first and second heart sounds without murmurs or gallops. ABDOMEN: Soft. EXTREMITIES: Without edema with intact peripheral pulses. EKG reveals sinus rhythm, anteroseptal scar, intraventricular conduction delay, and anterolateral ST-T changes suggestive of ischemia. IMPRESSION: 1. [place] [address] HISTORY AND PHYSICAL Name: LUCIANOLULI Rajni Room: [facility]#: [id number] Admission: 11/20/19 Attend Phys: Discharge: Date of : 59 Report #: [id number] 2. Status post multiple prior myocardial infarctions. 3. Recurrent chest pain compatible with unstable angina. 4. Ischemic cardiomyopathy. 5. Diabetes. 6. Tobacco habituation. 7. Hypertension. 8. Hyperlipidemia. RECOMMENDATIONS: Given the aforementioned clinical scenario, I would recommend recatheterization with strong consideration of intervention contingent on the results of the study. This has been discussed with the patient. Critical care time 35 minutes. <ELECTRONICALLY SIGNED> By: Pepe Strong MD, FACC 11/20/19 1016 0953 [id number] Strong MD, FACC /nt
--- NOTE | 2019-11-20 15:30 | NUR ---
1500 RECEIVED FROM ARTISTIC DIRECTOR PER BED. SEE ADMISSION ASSESSMENT ND HISTORY. SEE POST CATH INTERVENTION CHARTING. EKG DONE
--- NOTE | 2019-11-20 16:47 | 2DMMODE ---
[place] [address] 2 D/M-MODE ECHOCARDIOGRAM Name: LULI WOLF Room: [address] M.R.#: [id number] Admission: 11/20/19 Attend Phys: Kolby cardona Sa Discharge: Date of : 59 Date of Service: 11/20/19 1646 Report #: [id number] THIS REPORT FOR: cc: [facility] - Clinic physician unknown [facility] - Clinic physician unknown Pepe Strong MD [facility] ~ APPROVED REPORT Study performed: 11/20/2019 15:04:24 EXAM: Comprehensive 2D, Doppler, and color-flow Echocardiogram Patient Location: In-Patient BSA: 1.92 HR: 81 bpm BP: 140/87 mmHg Other Information Study Quality: Fair Technically limited study due to inability to position patient. Indications Chest Pain 2D Dimensions IVSd: 11.52 (7-11mm) LVOT Diam: 21.05 (18-24mm) LVDd: 57.93 mm PWd: 10.78 (7-11mm) Ascending Ao: 29.32 (22-36mm) LVDs: 47.60 (25-40mm) Aortic Root: 25.27 mm Volumes Left Atrial Volume (Systole) LA ESV Index: 20.10 mL/m2 Aortic Valve AoV Peak Stanley.: 1.10 m/s AO Peak Gr.: 4.84 mmHg LVOT Max P.34 mmHg AO Mean Gr.: 2.79 mmHg LVOT Mean P.61 mmHg LVOT Max V: 0.91 m/s AO V2 VTI: 17.17 cm LVOT Mean V: 0.58 m/s ERNESTO (VTI): 2.97 cm2 LVOT V1 VTI: 14.67 [place] [address] 2 D/M-MODE ECHOCARDIOGRAM Name: LULI WOLF Room: [address] M.R.#: [id number] Admission: 11/20/19 Attend Phys: Kolby cardona Sa Discharge: Date of : 59 Date of Service: 11/20/19 1646 Report #: [id number] Mitral Valve E/A Ratio: 0.82 MV Decel. Time: 261.06 ms MV E Max Stanley.: 0.43 m/s MV PHT: 75.71 ms MVA (PHT): 2.91 cm2 TDI E/Lateral E': 6.14 E/Medial E': 6.14 Medial E' Stanley.: 0.07 m/s Lateral E' Stanley.: 0.07 m/s Pulmonary Valve PV Peak Stanley.: 0.99 m/s PV Peak Gr.: 3.93 mmHg Tricuspid Valve RAP Estimate: 5.00 mmHg TR Peak Gr.: 4.52 mmHg RVSP: 9.52 mmHg PA Pressure: 9.52 mmHg Left Ventricle Left ventricle is mildly dilated. There are segmental wall motion abnormalities with hypokinesis of the distal anterior wall and akinesis of the distal septum and apex. There is normal left ventricular wall thickness. Left ventricular systolic function is moderate to severely decreased. LVEF is 30-35%. Grade I - abnormal relaxation pattern. Right Ventricle The right ventricle is normal size. The right ventricular systolic function is normal. Atria The left atrium size is normal. The right atrium size is normal. Aortic Valve Mild aortic valve sclerosis. No aortic regurgitation is present. There is no aortic valvular stenosis. Mitral Valve The mitral valve is normal in structure. There is no mitral valve regurgitation noted. No evidence of mitral valve stenosis. Tricuspid Valve The tricuspid valve is normal in structure[place] [address] 2 D/M-MODE ECHOCARDIOGRAM Name: LULI WOLF Room: [address]#: [id number] Admission: 11/20/19 Attend Phys: Kolby cardona Sa Discharge: Date of : 59 Date of Service: 11/20/19 1646 Report #: [id number] regurgitation. Pulmonic Valve The pulmonary valve is normal in structure. There is no pulmonic valvular regurgitation. Great Vessels The aortic root is normal in size. IVC is normal in size and collapses >50% with inspiration. Pericardium There is no pericardial effusion. <Conclusion> Left ventricle is mildly dilated. There is normal left ventricular wall thickness. Left ventricular systolic function is moderate to severely decreased. LVEF is 30-35%. Grade I - abnormal relaxation pattern. The right ventricle is normal size. The left atrium size is normal. Mild aortic valve sclerosis. No aortic regurgitation is present. There is no aortic valvular stenosis. The mitral valve is normal in structure. The tricuspid valve is normal in structure. IVC is normal in size and collapses >50% with inspiration. There is no pericardial effusion. There are segmental wall motion abnormalities with hypokinesis of the distal anterior wall and akinesis of the distal septum and apex. <ELECTRONICALLY SIGNED> By: Pepe Strong MD, FACC 11/20/19 1646 1646 164 Pepe Strong MD, FACC /INF
--- NOTE | 2019-11-20 18:17 | NUR ---
PATIENT PROGRESSING TOWARDS GOALS. PRESENTED TO ER WITH CHEST PAIN AND HAS HAD PCI COMPLETED. NOW OFF OF ANGIOMAX. REMAINS BEDREST UNTIL 2099. EDUCATED BY CARDIAC REHAB AND ECHO COMPLETED. SEE POST CATH CHECKS. PATIENT PLANS TO DISCHARGE TOMORROW.
[2019-11-21 03:07] LABS: HEPATITIS B SURFACE AG Negative (Negative)
[2019-11-21 04:15] LABS: HEMATOCRIT 32.3 % (42.0-52.0); HEMOGLOBIN 11.4 gm/dL (14.0-18.0); MCH 32.5 pg (26.0-34.0); MCHC 35.2 g/dL (28.0-37.0); MCV 92.2 fL (80.0-100.0); RBC 3.5 mil/uL (4.50-6.00); RDW-CV 14.1 % (10.5-14.5); WBC 7.9 thou/uL (4.0-11.0)
[2019-11-21 04:38] LABS: ALBUMIN 3.5 g/dL (3.4-5.0); ALKALINE PHOSPHATASE 47 U/L (46-116); ANION GAP 8 mmol/L (7-16); BUN 30 mg/dL (7-18); CALCIUM 8.2 mg/dL (8.5-10.1); CHLORIDE 107 mmol/L (98-107); CHOLESTEROL 84 mg/dL (<200); CO2 24 mmol/L (21-32); CREATININE 1.6 mg/dL (0.6-1.3); GLUCOSE 132 mg/dL (70-99); HDL CHOLESTEROL 20 mg/dL (>40); LDL CHOLESTEROL 30 mg/dL (<100); SGOT 39 U/L (15-37); SGPT 27 U/L (30-65); SODIUM 139 mmol/L (136-145); TC:HDL 4.2 Ratio (Not establshd); TOTAL BILIRUBIN 0.3 mg/dL (<0.1-1.0); TOTAL PROTEIN 6.5 g/dL (6.4-8.2); TRIGLYCERIDE 173 mg/dL (<150); VLDL 35 mg/dL (<40)
[2019-11-21 04:47] LABS: POTASSIUM 4.5 mmol/L (3.5-5.1)
[2019-11-21 04:48] LABS: ALBUMIN 3.6 g/dL (3.4-5.0); CALCIUM 8.1 mg/dL (8.5-10.1); CREATININE 1.6 mg/dL (0.6-1.3); PHOSPHORUS* 3.3 mg/dL (2.5-4.9)
[2019-11-21 04:50] LABS: POTASSIUM 4.4 mmol/L (3.5-5.1)
[2019-11-21 05:07] LABS: SERUM ASSESSMENT CLEAR
[2019-11-21 08:00] VITALS: BP 107/59
--- NOTE | 2019-11-21 08:30 | NUR ---
PT ARRIVED TO ROOM 200 PER CART. REPORT FROM JUAN JOSE PAUL. MEDS RECONCILLED. NOTIFIED OF UPDATES AND REQUESTED PAIN MEDICATION FOR PT'S BONE CANCER PAIN. ADMISSION ASSESSMENT COMPLETE. ORDERS INITIATED. PT ABLE TO SLEEP AFTER PAIN RELIEF. DAY SHIFT NOTIFIED OF PT'S CHEMO MEDS NOT AVAILABLE FROM OUR PHARMACY.
[2019-11-21 08:34] VITALS: BP 112/82
--- NOTE | 2019-11-21 09:43 | EKG ---
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 : 1955 Requested By: Pepe Strong Order Number: [id number] Reading MD: Esteban Steve Measurements Intervals [place] Rate: 80 P: 19 IA: 148 QRS: -7 QRSD: 111 T: -51 QT: 398 QTc: 460 Interpretive Statements Sinus rhythm Atrial premature complex and VPC Anteroseptal infarct, old Nonspecific T abnormalities, lateral leads Compared to ECG 06/13/2019 04:45:51 Atrial premature complex(es) now present and VPC T-wave abnormality now present Myocardial infarct finding still present Electronically Signed On 11-21-2019 9:42:30 CDT by Esteban Steve [email or web address] <ELECTRONICALLY SIGNED> By: Fransisco Steve MD, [facility] 11/21/19941 9 9 Fransisco Steve MD, [facility] /EPI
--- NOTE | 2019-11-21 09:46 | EKG ---
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1955 Requested By: Rehan Washington Order Number: [id number] MD: Esteban Steve Measurements Intervals [place] Rate: 70 P: -6 KS: 147 QRS: -4 QRSD: 107 T: -55 QT: 445 QTc: 481 Interpretive Statements Sinus rhythm Incomplete left bundle branch block Anterior Q waves, possibly due to ILBBB Compared to ECG 06/13/2019 04:45:51 Left bundle-branch block now present Q waves now present Myocardial infarct finding no longer present Cannot exclude old ASMI Electronically Signed On 11-21-2019 9:44:55 CDT by Esteban Steve [email or web address] <ELECTRONICALLY SIGNED> By: Fransisco Steve MD, [facility] 11/21/19 0944 12 1513 Fransisco Steve MD, [facility] /EPI
--- NOTE | 2019-11-21 09:50 | EKG ---
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 : 1955 Requested By: Pepe Strong Order Number: [id number] Reading MD: Esteban Steve Measurements Intervals [place] Rate: 92 P: 54 GA: 129 QRS: 0 QRSD: 98 T: 57 QT: 368 QTc: 456 Interpretive Statements Sinus rhythm Probable anterior infarct, age indeterminate Baseline wander in lead(s) V5 Compared to ECG 06/13/2019 04:45:51 No significant changes Electronically Signed On 11-21-2019 9:49:41 CDT by Esteban Steve [email or web address] <ELECTRONICALLY SIGNED> By: Fransisco Steve MD, [facility] 11/21/19 0949 0458 0458 Fransisco Steve MD, [facility] /EPI
[2019-11-21] MEDS ORDERED: NICOTINE TRANSD14 M1 TRANSDERM (10:54)
--- NOTE | 2019-11-21 11:39 | CARD ---
[address] [address] CARDIAC CATH REPORT Name: LULI WOLF Room: [address] Bhumi MPastorRPastor#: [id number] Admission: 11/20/19 Attend Phys: Kolby cardona [place] Discharge: Date of : 59 Report #: [id number] THIS REPORT FOR: //name// cc: [facility] - Clinic physician unknown [facility] - Clinic physician unknown ~ APPROVED REPORT Study performed: 11/20/2019 11:48:22 Patient Details Patient Status: ED Room #: The patient is a 64 year-old male Event Personnel Pepe Strong Rotary Driller Prospecting, Betina Isaac RN RN, Karis Santos RN RN, Hallie Mccollum RTR Scrub, Bubba Sullivan RTR Monitor Procedures Performed Art Access - R femoral artery, Left Heart Cath w/or w/o Coronaries LHC, JUAN Revasc Chronic Ttl Occl Single LAD CTOREVSING, PTCA Single Vessel Left Main PCISINGLE, Hemostasis w/ Angioseal Indication Non-STEMI Risk Factors Hypercholesterolemia Previous Procedures/Diagnoses Previous PCI, Previous SC Admission/Lab Medications/Medications given during procedure Angiomax IV 12 ml, Angiomax IV 28.1 ml per hr, Nitroglycerin IC 150 mcg, Effient PO 30 mg Procedure Narrative The patient was brought urgently to the Cardiac Catheterization Laboratory and was prepped and draped in a sterile manner. The right femoral was infiltrated with 2% Lidocaine subcutaneous anesthesia. A 6F [place] sheath was inserted into the right femoral artery. Coronary angiography was performed using coronary diagnostic catheters. The right coronary system was accessed and visualized with a 6F JR4 catheter. The left [place] [address] CARDIAC CATH REPORT Name: LUCIANOLULI Rajni Room: [address] Puma#: [id number] Admission: 11/20/19 Attend Phys: Kolby cardona [place] Discharge: Date of : 59 Report #: [id number] visualized with a 6F JL4 catheter. The left ventricle was accessed and visualized with a 6F Pigtail catheter. Left ventricular/Aortic Valve gradient assessed via catheter pullback. Pre-demployment femoral angiogram was performed . Closure device was deployed with a 6 Fr Angioseal STS. The patient tolerated the procedure well and there were no complications associated with the procedure. There was no hematoma. Intraoperative Conscious Sedation Sedation start time: 12:35 Case end Time: 14:24 Fentanyl 25 mcg Versed 1 mg Fluoro Time: 38.7 minutes Dose: DAP [id number] cGycm2 4050 mGy Contrast Type and Amount: Visipaque 310 ml Diagnostic Cath Left Main 75% distal left main in-stent restenosis LAD 100% chronic total occlusion of the proximal LAD Circumflex 80% proximal circumflex stenosis with collaterals to the diagonal branches of the LAD and parent LAD Right Coronary Large dominant vessel with 30% proximal and mid vessel narrowing with collaterals through the septum to the LAD system Ramus 40% proximal narrowing Left Ventriculography Left Ventriculography was not performed. Hemodynamics The aortic pressure is 118/66 mmHg with a mean of 80 mmHg. The left ventricular pressure is 124/0 mmHg with a mean of mmHg. The left ventricular end diastolic pressure is 21 mmHg. There was no gradient across the aortic valve upon pullback. PCI Technique Lesion Anticoagulation was achieved with Angiomax. Patient was preloaded with Angiomax IV 12 ml. Percutaneous coronary intervention was performed on the proximal left anterior descending artery segment. The lesion stenosis prior to intervention was 100% with PACHECO 0 flow. A 6F XB LAD 3.5 Guide Catheter was used to engage the ostium. A BMW 300cm Interventional Guidewire was used to cross the lesion. BALLOON DILATION A Balloon catheter Euphora SC 1.5x12mm [place] [address] CARDIAC CATH REPORT Name: LULI WOLF Room: [address]#: [id number] Admission: 11/20/19 Attend Phys: Kolby Alvarez Discharge: Date of : 59 Report #: [id number] to 16.00atm for 18seconds. Additional Inflation: 16.00atm for 10seconds. Additional Inflation: 18.00atm for 12seconds. A Euphora SC 2.0 x 15 balloon was inserted and inflated up to 14 jerzy for 19 seconds. Additional Inflations: 15 jerzy for 12 seconds; 16 jerzy for 11 seconds. A Euphora SC 2.25 x 12 balloon was inserted and inflated up to 8 jerzy for 18 seconds. Additional Inflations: 12 jerzy for 12 seconds; 15 jerzy for 12 seconds; 16 jerzy for 12 seconds. STENT DEPLOYMENT A drug-eluting stent [place] RX Stent 2.16E93yj was inserted and inflated up to 12.00atm for 20seconds. Additional Inflation: 15.00atm for 14seconds. A drug eluting stent [place] RX stent 2.0 x 18mm was inserted and inflated up to 12 jerzy for 10 seconds. POST STENT DEPLOYMENT BALLOON DILATION A Balloon catheter NC Euphora 2.5x12 was inserted and inflated up to 14.00atm for 18seconds. Additional Inflation: 16.00atm for 16seconds. Additional Inflation: 15.00atm for 16seconds. A Euphora SC 1.5 x 12 balloon was inserted and inflated up to 14 jerzy for 11 seconds. Additonal Inflations: 16 jerzy for 10 seconds; 16 jerzy for 11 seconds. Final angiography reveals 10 % stenosis with PACHECO 3 flow. COMMENTS I was able to traverse the chronic total occlusion the proximal LAD utilizing a fine cross microcatheter and traversing the proximal cap With a miracle bro 3 wire. I then advanced the fine cross to the more distal portion of the LAD and replaced the miracle bro wire with an 014 BMW long wire. I then proceeded with successive dilatations of the LAD with 1.5 to 2.25 mm balloons. PCI Technique Lesion 2 Percutaneous Coronary Intervention was performed on the left main coronary artery. Patient was preloaded with Angiomax IV 12 ml. The lesion stenosis prior to intervention was 75% with PACHECO 3 flow. A 6F XB LAD 3.5 Guide Catheter was used to engage the lm ostium. A BMW 300cm Interventional Guidewire was used to cross the lesion. Balloon Dilation A Balloon catheter NC Euphora 2.75x8 was inserted and inflated up to 16.00atm for 10seconds. Additional Inflation: 20atm for 12seconds. Final angiography reveals 10 % stenosis with [place]HE[place] 3 [place] [address] CARDIAC CATH REPORT Name: LULI WOLF Room: [address] Bhumi Bartholomew#: [id number] Admission: 11/20/19 Attend Phys: Kolby cardona [place] Discharge: Date of : 59 Report #: [id number] Conclusion 1. Non-STEMI 2 severe coronary arteriy disease characterized by the following: A 100% chronic total occlusion of the proximal LAD with collateral filling of the distal LAD from the circumflex and distal right coronary artery B 80% narrowing the proximal portion of the nondominant circumflex C 40% proximal ramus intermedius narrowing D 30% narrowing of the proximal and mid portions of the dominant right coronary artery with collaterals through the septum to the LAD system 3 moderate elevation of left ventricular end-diastolic pressure rest 4. Successful recanalization of the 100% chronic total occlusion of the proximal LAD as described in the technique section with 10% residual narrowing following final stent deployment and PACHECO-3 flow to the distal vessel 5 successful PTCA of the 75% distal left main in-stent restenotic lesion with 10% residual narrowing and PACHECO-3 flow to the distal circulation Recommendations Cardiac Risk Reduction Program Aggressive Medical Therapy Medications Administered Aspirin (any) Prasugrel Diagnostic Cath Approved by: Pepe Strong MD Date/Time: 11/21/2019 11:33:24 <ELECTRONICALLY SIGNED> By: Pepe Strong MD, [facility] 11/21/19 1138 1138 [id number] Strong MD, FACC /INF
[2019-11-21 12:12] VITALS: BP 112/82
--- NOTE | 2019-11-21 12:46 | NUR ---
ASSUMED PT CARE REPORT RECEIVED FROM NURSE PT IS AOX4. ON RA. VSS.COMPLAINS OF PAIN IN HIS RIGHT GROIN AREA. MORPHINE GIVEN. PT HAS A ABD US ORDERED. BUT HAD EATEN BREAKFAST. US RETAIL EVENT COORDINATOR MADE AWARE. HOSPITALIST MADE AWARE. PER PT'S CONSENT AND HOSPITALIST CONSENT, DECISION WAS MADE THAT PT WILL FOLLOW UP WITH ABD US OUTPATIENT. CARDIO SAW PT AT BEDSIDE. DISCHARGE ORDERED. DC INSTRUCTIONS GIVEN TO PT. PT DENIES CHEST PAIN. TRACES SR ON HOME CARE GIVER ALL MORNIGN LONG. NO NEW COMPLAINT. PT LEFT UNIT AT 1230 ACCOMPANIED BY NURSE STAFF. BELONGINGS BROUGHT ALONG
== END 2019-11-21 12:30 | disposition home or self-care (01) ==
LOC: M.ERS 08:56 → M.2W 11:33 → M.TBA-ER 11:33 → M.2W 11:33
PROVIDERS: Family Medicine; Internal Medicine; ADMIT Family Medicine; ATTEND Family Medicine
DX: I21.4 Non-ST elevation (NSTEMI) myocardial infarction (principal); I25.10 Atherosclerotic heart disease of native coronary artery without angina pectoris; E11.9 Type 2 diabetes mellitus without complications; E78.5 Hyperlipidemia, unspecified; I10 Essential (primary) hypertension; D72.829 Elevated white blood cell count, unspecified; R79.89 Other specified abnormal findings of blood chemistry; F17.210 Nicotine dependence, cigarettes, uncomplicated

== ENCOUNTER 2020-04-20 07:10 | Inpatient (IN) | payer MEDICARE ==
[~2020-04-20] VITALS: Ht 172.7 cm; Wt 82.6 kg
[2020-04-20 07:16] VITALS: BP 156/105
[2020-04-20] MEDS ORDERED: PROZAC40 MG PO (07:27)
[2020-04-20 07:50] LABS: HEMATOCRIT 37.1 % (42.0-52.0); RBC 4.07 mil/uL (4.50-6.00); RDW-CV 13.7 % (10.5-14.5); WBC 10.3 thou/uL (4.0-11.0)
[2020-04-20 07:52] LABS: HEMOGLOBIN 18.7 gm/dL (14.0-18.0); MCH 45.8 pg (26.0-34.0); MCHC 50.4 g/dL (28.0-37.0); MPV 7.5 fl. (7.2-11.1); NUCLEATED RBCS 0 /100WBC; PLATELET COUNT* 270 thou/uL (150-400)
[2020-04-20 08:15] LABS: ABSOLUTE EOSINOPHILS 0.4 thou/uL (0.0-0.7); ABSOLUTE LYMPHOCYTES 2.5 thou/uL (0.8-5.3); ABSOLUTE MONOCYTES 0.5 thou/uL (0.0-1.2); ABSOLUTE NEUTROPHILS 6.9 thou/uL (1.6-8.1); ANISOCYTOSIS 1+; METAMYELOCYTES 1 %; PLATELET ESTIMATE ADEQUATE
[2020-04-20 08:18] LABS: CHLORIDE 8.7 mmol/L (98-107); POTASSIUM 3.9 mmol/L (3.5-5.1)
[2020-04-20 09:27] LABS: CREATININE 0.8 mg/dL (0.6-1.3); MAGNESIUM 1.8 mg/dL (1.8-2.4); SGOT 19.2 U/L (15-37); TOTAL BILIRUBIN 0.2 mg/dL (<0.1-1.0)
[2020-04-20 09:28] LABS: ALBUMIN 3.7 g/dL (3.4-5.0); CK-MB MASS 13.1 ng/mL (<0.5-3.6); TOTAL PROTEIN 6.5 g/dL (6.4-8.2)
[2020-04-20 10:21] LABS: POTASSIUM 3.9 mmol/L (3.5-5.1)
[2020-04-20 10:33] LABS: CALCIUM 7.3 mg/dL (8.5-10.1); CREATININE 0.8 mg/dL (0.6-1.3)
--- NOTE | 2020-04-20 10:52 | EKG ---
[place] [address] ELECTROCARDIOGRAM REPORT Name: LULI WOLF Room: [facility]#: [id number] Admission: 04/20/20 Attend Phys: Discharge: Date of : 59 Date of Service: 04/20/20 0717 Report #: [id number] THIS REPORT FOR: //name// [facility] ED Test Date: 2020-04-20 Test Time: 07:17:11 Pat Name: LULI WOLF Department: Room: Gender: M Supervisor Laboratory Animal Facility: [facility] : 1955 Requested By: Rehan Washington Order Number: [id number] MD: Pepe Strong Measurements Intervals [place] Rate: 81 P: 6 NC: 136 QRS: -16 QRSD: 104 T: 100 QT: 339 QTc: 394 Interpretive Statements Sinus rhythm Ventricular premature complex Borderline left axis deviation Anteroseptal infarct, old Nonspecific T abnormalities, lateral leads Compared to ECG 11/21/2019 04:58:54 Ventricular premature complex(es) now present T-wave abnormality now present Myocardial infarct finding still present Electronically Signed On 04-20-2020 10:52:12 NUT ROASTER by Pepe Strong [email or web address] <ELECTRONICALLY SIGNED> By: Pepe Strong MD, FAC 04/20/20 1052 6 6 Pepe Strong MD, FAC /EPI
[2020-04-20 16:00] VITALS: BP 151/87
[2020-04-20 16:17] VITALS: BP 151/84
--- NOTE | 2020-04-20 16:33 | NUR ---
PT TO ROOM 208 VIA CART. NSR ON MONITOR. ORIENTED TO ROOM,CALL LIGHT WITHIN REACH.
[2020-04-20 16:53] LABS: BE -1.4 mmol/L (-2 to +3); PCO2 44.4 mmHg (35.0-45.0); PO2 87.9 mmHg (75.0-100.0); pH 7.356 (7.340-7.450)
[2020-04-20 17:28] LABS: POTASSIUM 3.7 mmol/L (3.5-5.1)
[2020-04-20 17:29] LABS: BUN 14.4 mg/dL (7-18); CREATININE 0.8 mg/dL (0.6-1.3)
[2020-04-20 17:30] LABS: CALCIUM 7.7 mg/dL (8.5-10.1); GLUCOSE 160.8 mg/dL (70-99)
--- NOTE | 2020-04-20 18:48 | NUR ---
PT UP IN ROOM WITH STEADY GAIT. NSR ON MONITOR. REPORTS ABD PAIN RELIEVED BY IV PAIN MEDS
[2020-04-20 20:59] VITALS: BP 137/73
[2020-04-21] VITALS: BP 142/80
[2020-04-21 04:00] VITALS: BP 135/72
--- NOTE | 2020-04-21 05:21 | NUR ---
No acute event this shift. Pt still complains of generalized abdominal pain, rated 7-8. Pt given PRN meds per mar with partial relief. Safety precaution reinforced, call light within reach, will continue POC.
[2020-04-21 08:00] VITALS: BP 117/81
[2020-04-21 12:31] VITALS: BP 120/90
--- NOTE | 2020-04-21 13:23 | 2DMMODE ---
[facility] [address] [place] [address] 2 D/M-MODE ECHOCARDIOGRAM Name: LULI WOLF Room: [address] IN R.#: [id number] Admission: 04/20/20 Attend Phys: Sharon Whalen Discharge: Date of : 59 Date of Service: 04/21/20 1257 Report #: [id number] THIS REPORT FOR: cc: [facility] - Clinic physician unknown [facility] - Clinic physician unknown Pepe Strong MD [facility] ~ APPROVED REPORT Study performed: 04/21/2020 10:07:43 EXAM: Limited 2D Echocardiogram Patient Location: In-Patient Room #: [facility] Status: routine BSA: 1.97 HR: 70 bpm BP: 135/72 mmHg Indications Dyspnea Left Ventricle The left ventricle is normal size. Regional wall motion abnormalities are noted with distal septal and apical hypo-akinesis. There is normal left ventricular wall thickness. Left ventricular systolic function is mildly decreased. LVEF is 45-50%. Right Ventricle The right ventricle is normal size. The right ventricular systolic function is normal. Atria The left atrium size is normal. The right atrium size is normal. Aortic Valve Mild aortic valve sclerosis. Mitral Valve The mitral valve is normal in structure. Tricuspid Valve The tricuspid valve is normal in structure. Pulmonic Valve [facility] [address] [place] [address] 2 D/M-MODE ECHOCARDIOGRAM Name: LULI WOLF Room: [address] IN M.R.#: [id number] Admission: 04/20/20 Attend Phys: Sharon Whalen Discharge: Date of : 59 Date of Service: 04/21/20 1257 Report #: [id number] The pulmonary valve is normal in structure. Great Vessels The aortic root is normal in size. IVC is normal in size and collapses >50% with inspiration. Pericardium There is no pericardial effusion. <Conclusion> The left ventricle is normal size. There is normal left ventricular wall thickness. Left ventricular systolic function is mildly decreased. LVEF is 45-50%. The right ventricle is normal size. The left atrium size is normal. Mild aortic valve sclerosis. The mitral valve is normal in structure. The tricuspid valve is normal in structure. IVC is normal in size and collapses >50% with inspiration. There is no pericardial effusion. Regional wall motion abnormalities are noted with distal septal and apical hypo-akinesis. <ELECTRONICALLY SIGNED> By: Pepe Strong MD, [facility] 04/21/20 1257 1257 1257 Pepe Strong MD, FACC /INF
--- NOTE | 2020-04-21 13:50 | NUR ---
Pt is A&O. Resides at home with his mom. Independent. Pt has a cane that he uses PRN. Pt has a nebulizer. No hx of HH or SNF. Pt stated that he struggles with managing his medications, CM discussed possible need for HH, Pt in agreement with HH at [facility]. HH to be arranged with [facility] p:[phone] f:[phone]. Pt's PCP is Dr Jayne Romano out of [facility]. Anticipate dc in a few days.
[2020-04-21 16:25] LABS: POTASSIUM 3.5 mmol/L (3.5-5.1)
[2020-04-21 16:26] LABS: BUN 22.8 mg/dL (7-18); CREATININE 1.1 mg/dL (0.6-1.3); GLUCOSE 196.8 mg/dL (70-99)
[2020-04-21 17:07] VITALS: BP 125/79
[2020-04-21 20:20] VITALS: BP 103/72
--- NOTE | 2020-04-21 20:28 | NUR ---
ASSUMED PT CARE AT 0730, PT AOX4, PT HAD HEADACHE AND SOME ABD PAIN THROUGHOUT SHIFT TREATED W/ PRN MEDS W/ NO RELIEF, NON-PHARM MEASURES TAKEN WELL. PT GOAL IS TO WORK ON PAIN MANAGEMENT. AM ASSESSMENT CHARTED, MEDS PER MAR, HOURLY ROUNDING OBSERVED, FALL PRECAUTIONS IN PLACE, CALL LIGHT W/IN REACH.
[2020-04-22] VITALS: BP 116/59; BP 117/54
[2020-04-22 04:00] VITALS: BP 111/71
--- NOTE | 2020-04-22 05:44 | NUR ---
PT CARE ASSUMED AT 1930. SAT MAINTAINED IN RA. ALERT AND ORIENTED X4. C/O PAIN, MEDICATION GIVEN PER EMAR. CALL LIGHT WITHIN REACH AND BED IN LOW POSITION. HOURLY ROUNDING DONE FOR PT SAFETY.
[2020-04-22 08:00] VITALS: BP 119/72
--- NOTE | 2020-04-22 11:15 | NUR ---
[facility] orders will need to be faxed to [phone]
[2020-04-22 12:03] LABS: POTASSIUM 3.8 mmol/L (3.5-5.1)
[2020-04-22 12:16] LABS: HEMATOCRIT 37.7 % (42.0-52.0); HEMOGLOBIN 16.4 gm/dL (14.0-18.0); MCH 40.5 pg (26.0-34.0); MCHC 43.5 g/dL (28.0-37.0); MCV 93.1 fL (80.0-100.0); RBC 4.05 mil/uL (4.50-6.00); WBC 8.4 thou/uL (4.0-11.0)
[2020-04-22 12:19] VITALS: BP 115/72
[2020-04-22 12:19] LABS: CALCIUM 7.9 mg/dL (8.5-10.1); CREATININE 1.2 mg/dL (0.6-1.3)
[2020-04-22 16:24] LABS: URINE BLOOD NEGATIVE (Negative); URINE CLARITY CLEAR; URINE COLOR YELLOW; URINE GLUCOSE-RANDOM NEGATIVE (Negative); URINE KETONES NEGATIVE (Negative); URINE LEUKOCYTES NEGATIVE (Negative); URINE NITRITE NEGATIVE (Negative); URINE PROTEIN 2+ (Negative); URINE SPECIFIC GRAVITY >= 1.030 (1.005-1.030); URINE UROBILINOGEN 0.2 E.U./dl (0.2-1.0)
[2020-04-22 16:29] LABS: ICTOTEST (BILI CONFIRMATORY) Negative (Negative); URINE BILIRUBIN 1+ (Negative); URINE POTASSIUM-RANDOM 67.4 mmol/L
[2020-04-22 16:30] LABS: BACTERIA None Seen /HPF (None Seen); CRYSTALS None Seen /LPF (None Seen); HYALINE CASTS 0-3 Few /LPF (None Seen); MUCUS 4-6 Moderate strn/LPF (None Seen); SQUAMOUS 0-3 Few /LPF (0-3); URINE RBC None Seen /HPF (0-2); URINE WBC None Seen /HPF (0-5)
[2020-04-22 17:05] VITALS: BP 110/68
--- NOTE | 2020-04-22 18:55 | NUR ---
RECEIVED REPORT. ASSUMED CARE OF PT ROUND 07. PT A&O X4. AM ASSESSMENT AND VITALS COMPLETED CHARTED. TRANSPORTATION ECONOMICS TEACHER IN PLACE. MEDS PER EMAR. PT REPORTED HEADACHE AND BELLY PAIN THROUGHOUT THE SHIFT THAT WAS MANAGED WITH IV PAIN MEDICATION WITH PARTIAL RELIEF. HEADACHE IMPROVED BY END OF SHIFT. BELLY PAIN PERSISTING. PT SAD AND UPSET ABOUT HIS LIFE SITUATION AND HIS HEALTH RIGHT NOW, REASSURANCE GIVEN. APPETITE GOOD. SHOWERED TODAY. UP AD CHARLIE. PT MIGHT MIGHT GO HOME TOMORROW, DEPENDS ON RENAL. PT CURRENTLY RESTING IN BED WATCHING TV. CALL LIGHT IS WITHIN REACH. HOURLY ROUNDING PERFORMED. LOW FALL RISK PRECAUTIONS IN PLACE.
[2020-04-22 21:00] VITALS: BP 109/60
[2020-04-23] VITALS: BP 101/58; BP 95/49
[2020-04-23 04:00] VITALS: BP 119/57
[2020-04-23 06:37] LABS: POTASSIUM 4.2 mmol/L (3.5-5.1)
--- NOTE | 2020-04-23 06:55 | NUR ---
PATIENT SLEPT MOST OF THE NIGHT. IV REMAINS SALINE LOCKED. PATIENT HAD NO COMPLAINTS OF PAIN. WILL CONTINUE TO MONITOR.
[2020-04-23 06:57] LABS: CALCIUM 9.2 mg/dL (8.5-10.1); CREATININE 1.3 mg/dL (0.6-1.3)
[2020-04-23 08:00] VITALS: BP 111/63
[2020-04-23 11:22] VITALS: BP 111/63
[2020-04-23 11:37] VITALS: BP 111/63
--- NOTE | 2020-04-23 11:49 | NUR ---
ASSUMED CARE OF PATIENT THIS AM AT 0730. PATIENT IS ALERT AND ORIENTED X 4. HE C/O EYE PAIN THIS AM. PATIENT'S RIGHT EYE NOTED TO BE REDDENED. PATIENT STATED EYE DROPS DID NOT HELP. PATIENT MEDICATED FOR PAIN X 2. SEE AUG. IN TO ROUND AND DISCHARGE ORDERS WRITTEN. SALINE LOCK AND TELE MONITOR DISCONTINUED. PATIENT STATED PAIN MEDICATION HELPED. HE WAS DISCHARGED TO HOME WITH BELONGINGS.
== END 2020-04-23 11:50 | disposition home health service (06) | DRG 391 ==
LOC: M.ERS 07:10 → M.TBA-ER 12:34 → M.2W 12:34 → M.TBA-ER 12:34 → M.2W 16:13
PROVIDERS: Family Medicine; Internal Medicine; ADMIT Internal Medicine; ATTEND Internal Medicine
DX: A08.4 Viral intestinal infection, unspecified (principal); I50.41 Acute combined systolic (congestive) and diastolic (congestive) heart failure; E87.2 Acidosis; K86.1 Other chronic pancreatitis; E87.1 Hypo-osmolality and hyponatremia; I11.0 Hypertensive heart disease with heart failure; E78.5 Hyperlipidemia, unspecified; F12.90 Cannabis use, unspecified, uncomplicated; I25.10 Atherosclerotic heart disease of native coronary artery without angina pectoris; N30.90 Cystitis, unspecified without hematuria; I25.5 Ischemic cardiomyopathy; J44.9 Chronic obstructive pulmonary disease, unspecified; E11.9 Type 2 diabetes mellitus without complications; F17.210 Nicotine dependence, cigarettes, uncomplicated; E03.9 Hypothyroidism, unspecified; G89.29 Other chronic pain; Z20.828 Contact with and (suspected) exposure to other viral communicable diseases; I25.2 Old myocardial infarction; Z95.5 Presence of coronary angioplasty implant and graft; Z79.4 Long term (current) use of insulin; Z79.82 Long term (current) use of aspirin; Z79.899 Other long term (current) drug therapy

== ENCOUNTER 2020-05-29 14:54 | Inpatient (IN) | payer MEDICARE ==
[~2020-05-29] VITALS: Ht 170.2 cm; Wt 80.3 kg
[~2020-05-29 14:54] MED LIST changes: +PROZAC40 MG PO
[2020-05-29 14:59] VITALS: BP 140/92
[2020-05-29 15:33] LABS: BE 3.1 mmol/L (-2 to +3); PO2 83.5 mmHg (75.0-100.0); pH 7.519 (7.340-7.450)
[2020-05-29 15:36] LABS: HEMATOCRIT 35.4 % (42.0-52.0); HEMOGLOBIN 11.5 gm/dL (14.0-18.0); MCH 30.9 pg (26.0-34.0); MCHC 32.5 g/dL (28.0-37.0); MPV 8.4 fl. (7.2-11.1); NUCLEATED RBCS 0 /100WBC; PLATELET COUNT* 256 thou/uL (150-400); RBC 3.73 mil/uL (4.50-6.00); RDW-CV 14.2 % (10.5-14.5); WBC 11.3 thou/uL (4.0-11.0)
[2020-05-29 15:59] LABS: CALCIUM 8.9 mg/dL (8.5-10.1); CREATININE 1.8 mg/dL (0.6-1.3); POTASSIUM 4.5 mmol/L (3.5-5.1)
[2020-05-29 16:03] LABS: ABSOLUTE LYMPHOCYTES 0.2 thou/uL (0.8-5.3); ABSOLUTE MONOCYTES 0.5 thou/uL (0.0-1.2); ABSOLUTE NEUTROPHILS 10.6 thou/uL (1.6-8.1); PLATELET ESTIMATE ADEQUATE
[2020-05-29 16:13] LABS: ALBUMIN 3.3 g/dL (3.4-5.0); MAGNESIUM 2.3 mg/dL (1.8-2.4); TOTAL BILIRUBIN 0.4 mg/dL (<0.1-1.0)
[2020-05-29 19:39] VITALS: BP 140/92
[2020-05-29 19:57] LABS: URINE BILIRUBIN NEGATIVE (Negative); URINE BLOOD NEGATIVE (Negative); URINE CLARITY CLEAR; URINE COLOR YELLOW; URINE GLUCOSE-RANDOM 3+ (Negative); URINE KETONES NEGATIVE (Negative); URINE LEUKOCYTES-REFLEX NEGATIVE (Negative); URINE NITRITE-REFLEX NEGATIVE (Negative); URINE PROTEIN NEGATIVE (Negative); URINE SPECIFIC GRAVITY 1.015 (1.005-1.030); URINE UROBILINOGEN 0.2 E.U./dl (0.2-1.0)
[2020-05-29 21:45] VITALS: BP 104/70
[2020-05-30 00:56] VITALS: BP 109/69
--- NOTE | 2020-05-30 04:17 | NUR ---
PATIENT TRANSFERRED FROM ED AT APPROXIMATELY 2009. PATIENT CONTINUES ON ISOLATION FOR COVID RULE OUT. PATIENT ON HEPARIN PROTOCOL WITH NO S/S OF ACTIVE BLEEDING. AROUND 344 PATIENT CALLED OUT C/O SOA. OXYGEN SATURATION 97% ON ROOM AIR. PLACED PATIENT ON 2L OXYGEN VIA NASAL CANNULA FOR COMFORT AND INSTRUCTED TO DEEP BREATHE. ASKED PATIENT IF HE HAD PANIC ATTACKS AND PATIENT STATED HE DID. PATIENT ALSO STATED THAT HE HAD BEEN GIVEN XANAX DURING HIS RECENT STAY AT [facility], FROM WHICH HE HAD BEEN DISCHARGED 05/29/20. CONTACTED PHYSICIAN AND OBTAINED AN ORDER FOR PRN XANAX 0.5MG PO QID.
[2020-05-30 04:42] VITALS: BP 105/68
--- NOTE | 2020-05-30 07:20 | NUR ---
CHANGE OF SHIFT REPORT GIVEN PATIENT SEEN AT BEDSIDE, IN BED ASLEEP ASSUMED PATIENT CARE
[2020-05-30 08:00] VITALS: BP 107/73
--- NOTE | 2020-05-30 10:24 | EKG ---
[place] [address] ELECTROCARDIOGRAM REPORT Name: LULI WOLF Room: [address] IN ..#: [id number] Admission: 05/29/20 Attend Phys: Silvia Og, Discharge: Date of : 59 Date of Service: 05/29/20 1624 Report #: [id number] THIS REPORT FOR: //name// [facility] ED Test Date: 2020-05-29 Test Time: 16:24:54 Pat Name: LULI WOLF Department: Room: [facility] Gender: M Sausage Stringer: JAZMIN : 1955 Requested By: Rsolyn Pritchett Order Number: [id number] MD: Sheldon Fernandez Measurements Intervals [place] Rate: 100 P: 36 [place]: 126 QRS: -14 QRSD: 115 T: 78 QT: 358 QTc: 462 Interpretive Statements Sinus tachycardia Probable left atrial enlargement Left ventricular hypertrophy Anterior Q waves, possibly due to LVH Compared to ECG 04/20/2020 07:17:11 Left ventricular hypertrophy now present Sinus rhythm no longer present Ventricular premature complex(es) no longer present Electronically Signed On 05-30-2020 10:24:36 TESTING COORDINATOR by Sheldon Fernandez [email or web address] <ELECTRONICALLY SIGNED> By: Sheldon Fernandez MD, FACC 05/30/20 1024 1624 1624 Sheldon Fernandez MD, [facility] /EPI
[2020-05-30 12:00] VITALS: BP 112/72
[2020-05-30 16:00] VITALS: BP 109/73
[2020-05-30 20:30] VITALS: BP 115/70
[2020-05-31] VITALS: BP 122/86
[2020-05-31 04:00] VITALS: BP 120/85
--- NOTE | 2020-05-31 07:03 | NUR ---
ASSUMED PT CARE AT 1930. PT WAS RESTING IN BED. A/OX4. VSS. CARDIAC RHYTHM WAS SR WITH PVC'S. PT DENIED C/O CHEST PAIN. PT BECAME ANXIOUS AND C/O SOA. PT HAD LABORED RESPIRATIONS AT 22/MIN. PT GIVEN PRN XANAX PER REQUEST. MEDICATION ADMINISTERED PRESCRIBED. O2 SAT WAS 98%. RN PHONED MD SCHULTZ AND OBTAINED ORDER FOR BUDESONIDE (PULMICORT) NEBULIZED BID. ORDER ENTERED PRESCRIBED. PT BECAME RESTLESS AND ANXIOUS INTERMITTENTLY DURING THE NIGHT. PT CURRENTLY ASLEEP. NO CURRENT C/O VOICED.
[2020-05-31 07:32] LABS: ABSOLUTE EOSINOPHILS 0.4 thou/uL (0.0-0.7); ABSOLUTE LYMPHOCYTES 2.2 thou/uL (0.8-5.3); ABSOLUTE MONOCYTES 0.8 thou/uL (0.0-1.2); ABSOLUTE NEUTROPHILS 4.8 thou/uL (1.6-8.1); BASOPHILS 0.1 %; EOSINOPHILS 4.6 %; HEMATOCRIT 33.3 % (42.0-52.0); HEMOGLOBIN 11.1 gm/dL (14.0-18.0); LYMPHOCYTES 26.5 %; MCH 30.8 pg (26.0-34.0); MCHC 33.5 g/dL (28.0-37.0); MCV 92.1 fL (80.0-100.0); MONOCYTES 9.6 %; MPV 8.4 fl. (7.2-11.1); NUCLEATED RBCS 0 /100WBC; PLATELET COUNT* 274 thou/uL (150-400); POLYS 59.2 %; RBC 3.61 mil/uL (4.50-6.00); RDW-CV 13.6 % (10.5-14.5); WBC 8.2 thou/uL (4.0-11.0)
[2020-05-31 07:35] VITALS: BP 108/75
[2020-05-31 07:50] LABS: ALBUMIN 2.7 g/dL (3.4-5.0); CALCIUM 8.3 mg/dL (8.5-10.1); TOTAL BILIRUBIN 0.3 mg/dL (<0.1-1.0); TOTAL PROTEIN 5.9 g/dL (6.4-8.2)
--- NOTE | 2020-05-31 11:05 | NUR ---
PT.GETTING READY TO MOVE UP TO M/S TELE ROOM. HE IS COVID NEGATIVE. SPOKE WITH HIM. HE SAID HE LIVES IN HIS CAR. HE DID USED TO LIVE WITH HIS MOM. HE SAID THAT DID NOT WORK OUT. ALSO HAS A SISTER. HE SAID HE DOES NOT WANT TO LIVE WITH HER. HE SAID HE DID NOT WANT TO LIVE WITH ANY FAMILY MEMBER. HE JUST PREFERS TO LIVE OUT OF HIS CAR. OFFERED THE [employer] [facility] IT SUPPOSED TO GET COLDER TOMORROW NIGHT. HE DECLINED. HE SAID HE CAN GET HIS MEDICATIONS AT NO CHARGE WITH HIS INSURANCE AT [employer] [address] CM WILL FOLLOW.
--- NOTE | 2020-05-31 11:39 | NUR ---
ASSUMED CARE OF THIS PATIENT APPROX 0730, PT A&OX4 VSS AND RESTING IN BED. IV TO RAC AND L WRIST PATENT. PT INTERMITTENTLY REMOVES TELE MONITORS AND O2 CANNULA. PT ENCOURAGED TO ELEVATE HOB TO RELIEVE C/O SOA. BLOOD GLUCOSE CHECKED AD BEDSIDE, NO INSULIN ADMINISTERED AT THIS TIME R/T GLUCOSE READING. PT REMAINS SINUS ON MONITOR. PT UP AD CHARLIE IN ROOM. NITRO PASTE ON CHEST. NO C/O PAIN AT THIS TIME. PT SLEEPING UPON ENTERING ROOM FOR ASESSMENT THIS AM. PT TAKES MEDS W/O DIFFICULTY. REPORT TO PEACE PAUL ON TELE. PT MOVED TO 2ND FLOOR APPROX 1130 ON BED WITH ALL PERSONAL BELONGINGS. CHART ACCOMPANIED PT TO FLOOR.
[2020-05-31 12:00] VITALS: BP 107/62
[2020-05-31 16:00] VITALS: BP 118/84
--- NOTE | 2020-05-31 18:58 | NUR ---
PT RESTING AT THIS TIME. TEARFUL. PT HAS BEEN LIVING IN HIS CAR SINCE AN ARGUMENT WITH HIS .PT IS DISABLED AND HAS NO OTHER SOURCE OF INCOME. PT HAS NOT TALKED TO FAMILY OTHER THAN IN YEARS R/T FAMILY'S FEELINGS ON . THIS EVENING WHEN GIVING PT MEDICATIONS PT STATED THAT THERE WAS NO POINT BECAUSE HE WASN'T GOING TO LIVE ANYMORE AND SOON HE GOT BACK TO HIS CAR HE WOULD TAKE HIS LIKE. I ASKED MORE QUESTIONS AND FOUND THAT HE INTENDED TO TAKE HIS LIFE ON BY TAKING BLOOD PRESSURE MEDICATIONS. PT FEELS HOPELESS,HELPLESS, FEELS LIKE HE IS ALONE. PT ROOM SCRUBBED,MADE 1:1,CASE MANAGEMENT CONSULTED AND PHYSICIAN PAGED. WCTM CLOSELY.
[2020-05-31 20:00] VITALS: BP 102/63
[2020-06-01] VITALS: BP 100/60
--- NOTE | 2020-06-01 03:03 | NUR ---
ASSUMED PT CARE AT APPROX 1930. PT IS AWAKE AND ORIENTED X4. PT IS NOT IN DISTRESS, NO DESATURATIONS NOTED ON ROOM AIR. PT IS TRACING SR WITH SOME PVC'S ON THE LPN. NO ACUTE CHANGES THROUGHOUT THE NIGHT. SUICIDE PRECAUTIONS IN EFFECT. NO SUICIDAL IDEATIONS AT THIS TIME. 1:[address] CALL LIGHT WITHIN REACH. HOURLY ROUNDING DONE.
[2020-06-01 04:00] VITALS: BP 123/83
[2020-06-01 05:10] LABS: ABSOLUTE EOSINOPHILS 0.1 thou/uL (0.0-0.7); ABSOLUTE LYMPHOCYTES 1.1 thou/uL (0.8-5.3); ABSOLUTE MONOCYTES 1.1 thou/uL (0.0-1.2); ABSOLUTE NEUTROPHILS 10.7 thou/uL (1.6-8.1); BASOPHILS 0.2 %; EOSINOPHILS 0.6 %; HEMATOCRIT 35.3 % (42.0-52.0); HEMOGLOBIN 11.8 gm/dL (14.0-18.0); LYMPHOCYTES 8.2 %; MCH 30.8 pg (26.0-34.0); MCHC 33.5 g/dL (28.0-37.0); MCV 91.9 fL (80.0-100.0); MONOCYTES 8.3 %; MPV 9.1 fl. (7.2-11.1); NUCLEATED RBCS 0 /100WBC; PLATELET COUNT* 315 thou/uL (150-400); POLYS 82.7 %; RBC 3.84 mil/uL (4.50-6.00); RDW-CV 13.8 % (10.5-14.5)
[2020-06-01 06:36] LABS: ALBUMIN 2.9 g/dL (3.4-5.0); CREATININE 1.1 mg/dL (0.6-1.3); POTASSIUM 4.3 mmol/L (3.5-5.1); TOTAL BILIRUBIN 0.3 mg/dL (<0.1-1.0); TOTAL PROTEIN 6.4 g/dL (6.4-8.2)
[2020-06-01] MEDS ORDERED: SPIRONOLACTONE25 MG PO (11:18)
--- NOTE | 2020-06-01 11:48 | CON ---
[address] [address] CONSULTATION Name: LULI WOLF Room: [address] IN .R.#: [id number] Admission: 05/29/20 Attend Phys: Silvia Og MD Discharge: Date of : 59 Report #: [id number] THIS REPORT FOR: cc: [facility] - Clinic physician unknown [facility] - Clinic physician unknown ~ Sheldon Fernandez MD [facility] DATE OF SERVICE: 05/30/2020 CARDIOLOGY CONSULTATION HISTORY OF PRESENT ILLNESS: The patient is a 64-year-old white male who I was asked to see in the hospital today after he complained of being short of breath. The patient has an extensive and complicated past medical history. He is on disability. He is from his and basically lives in his car at this time as he has no home. He has a long history of diabetes. The patient had his first heart catheterization by Dr. Strong back in 03/2018. There apparently was a stent in the proximal LAD that was occluded with thrombus. There was a 70% narrowing of the circumflex. He then placed a drug-eluting stent in the proximal LAD. He then performed repeat heart catheterization in 04/2019. The LAD was occluded with thrombus. There was a 75% stenosis of the circumflex. He then placed a bare metal stent in the LAD. His last heart catheterization by Dr. Strong was just this past 11/2019 that revealed the LAD was completely occluded, 80% narrowing of the proximal circumflex. He then performed angioplasty of the occluded LAD, but apparently did not put a stent at that time. He apparently also did a PTCA of the left main artery. Echocardiogram in November showed an ejection fraction only 35%. Previous screening showed no carotid stenosis, no abdominal aneurysm and ABIs were normal. The patient is not very active at this time. He apparently was admitted to [facility] in February with low blood pressure, was taken off lisinopril. Recently, he has been coughing and short of breath. He has had some edema. He drove himself to the hospital last night and was admitted. Cardiology consultation requested. He does note some chest tightness when he takes a deep breath or coughs. He has had no leg pain. Denies any bleeding. He has had no syncope. PAST MEDICAL HISTORY: He has had a tonsillectomy. He has diabetes, hypertension, hyperlipidemia. CURRENT MEDICATIONS: Include an inhaler, aspirin, Lipitor, Zetia, fenofibrate, insulin, Synthroid, metoprolol, Effient, Flomax. ALLERGIES: He has no known drug allergies. FAMILY HISTORY: [place] [address] CONSULTATION Name: LULI WOLF Room: [address] IN ..#: [id number] Admission: 05/29/20 Attend Phys: Silvia Og MD Discharge: Date of : 59 Report #: [id number] SOCIAL HISTORY: He is currently disabled secondary to COPD. 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 He still smokes a pack of cigarettes a day. No alcohol use. Does smoke marijuana occasionally. He has a history of IV drug abuse of speed, no longer abuses IV drugs. REVIEW OF SYSTEMS: No history of stroke. He does have COPD. He had a history of hepatitis B. No kidney disease. No cancer. No psychiatric illness. No chronic skin condition. PHYSICAL EXAMINATION: GENERAL: Revealed a middle-aged male, appeared in no acute distress. VITAL SIGNS: Blood pressure is 110/70, pulse is 80. He was afebrile. HEENT: He was anicteric. Conjunctivae pink. Mucous membranes moist. NECK: Veins nondistended. No carotid bruits. CHEST: No coarse of breath sounds bilaterally. CARDIOVASCULAR: Regular rate and rhythm. ABDOMEN: Soft. EXTREMITIES: Had no edema. Posterior tibial pulse 2+ bilaterally. SKIN: Cool and dry. NEUROLOGIC: Nonfocal. His ECG in the Emergency Room yesterday showed a sinus rhythm, evidence of previous anterior infarction, nonspecific ST and T-wave changes. LABORATORY WORK: Sodium 134, BUN 37, creatinine 1.8. His liver function studies were normal. His troponin on admission was 0.31, today it is 0.29. BNP 6042. His white blood cell count 11.3, hematocrit 35.4. His COVID antigen stat study was negative. His chest x-ray last night, normal heart size, ground-glass infiltrates suggesting COVID. IMPRESSION AND RECOMMENDATIONS: 1. Possible COVID with pneumonia. 2. Chronic obstructive pulmonary disease. 3. Tobacco abuse. 4. Coronary artery disease. Minimal troponin rise. His chest discomfort is more suspicious for pleuritic pain. I would not recommend cardiac catheterization at this time. I would continue Effient and aspirin. 5. Cardiomyopathy. The patient was taken off his SEBAS inhibitor because of low blood pressure. I would continue his beta getachew. I would recommend adding Aldactone. I will consider a defibrillator. 6. Hyperlipidemia. The patient is on Lipitor, Zetia and fenofibrate. 7. Diabetes. 8. Tobacco abuse. [address] [address] CONSULTATION Name: LULI WOLF Room: [facility]#: [id number] Admission: 05/29/20 Attend Phys: Silvia Og MD Discharge: Date of : 59 Report #: [id number] 9. Chronic obstructive pulmonary disease. 10. History of IV drug abuse. The patient no longer abuses IV drugs. 11. History of hepatitis C. <ELECTRONICALLY SIGNED> By: Sheldon Fernandez MD, FACC 06/01/20 1148 0908 [id number] Fernandez MD, FACC /nt
[2020-06-01 11:56] VITALS: BP 95/59
--- NOTE | 2020-06-01 12:25 | NUR ---
Tele psych consult completed, Pt will need inpt psych. Pt medically stable to dc. CM contacted the following facilities: [facility]-not accepting new referrals [facility]-faxed referral [phone] f:[phone] [facility]not accepting new referrals d/t provider availability [facility]-faxed referral p:[phone] f:[phone] [facility]-full [facility]-full [facility]-faxed referral p:[phone] f:[phone] [facility]-faxed referral p:[phone] [phone]
--- NOTE | 2020-06-01 14:30 | NUR ---
Pt discharging to [facility] today, nurse is to call report after 315pm, at that time, room number will be provided as well as dc time. CM initiated EMTALA and ambulance forms, both on front of Pt's chart. Chart copied. Nurse report number is [phone]. Pt will be accepted under the care of Dr Ball. CM updated Dr and nurse. Pt in agreement with POC, did not want CM to contact his family. [facility] [address] [place] [address]
[2020-06-01 15:48] VITALS: BP 108/69
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
== END 2020-06-01 19:15 | DRG 177 ==
LOC: M.ERS 14:54 → M.TBA-ER 16:57 → M.2W 16:57 → M.ORTHSURG 16:57 → M.2W 05-31 11:31
PROVIDERS: Internal Medicine; Personal Emergency Response Attendant; ADMIT Internal Medicine; ATTEND Internal Medicine
PROC: 5A0935A Assistance with Respiratory Ventilation, Less than 24 Consecutive Hours, High Flow/Velocity Cannula (ICD-10-PCS; principal; 2020-05-30)
PROC: 5A0935A Assistance with Respiratory Ventilation, Less than 24 Consecutive Hours, High Flow/Velocity Cannula (ICD-10-PCS; 2020-05-31)
DX: J15.6 Pneumonia due to other Gram-negative bacteria (principal); I21.4 Non-ST elevation (NSTEMI) myocardial infarction; I50.43 Acute on chronic combined systolic (congestive) and diastolic (congestive) heart failure; J96.20 Acute and chronic respiratory failure, unspecified whether with hypoxia or hypercapnia; N17.9 Acute kidney failure, unspecified; R45.851 Suicidal ideations; I42.9 Cardiomyopathy, unspecified; J44.0 Chronic obstructive pulmonary disease with (acute) lower respiratory infection; I11.0 Hypertensive heart disease with heart failure; I25.10 Atherosclerotic heart disease of native coronary artery without angina pectoris; E03.9 Hypothyroidism, unspecified; E11.9 Type 2 diabetes mellitus without complications; E78.5 Hyperlipidemia, unspecified; F12.90 Cannabis use, unspecified, uncomplicated; F17.210 Nicotine dependence, cigarettes, uncomplicated; G89.29 Other chronic pain; Z20.828 Contact with and (suspected) exposure to other viral communicable diseases; Z95.5 Presence of coronary angioplasty implant and graft; Z91.19 Patient's noncompliance with other medical treatment and regimen; Z79.899 Other long term (current) drug therapy; Z79.4 Long term (current) use of insulin; Z79.82 Long term (current) use of aspirin; I25.2 Old myocardial infarction

== ENCOUNTER 2020-06-13 22:09 | Inpatient (IN) | payer MEDICARE ==
[~2020-06-13] VITALS: Ht 175.3 cm; Wt 80.7 kg
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
[~2020-06-13 22:09] MED LIST changes: +SPIRONOLACTONE25 MG PO
[2020-06-13 22:10] VITALS: BP 103/67
[2020-06-13] MEDS ORDERED: FLOMAX0.4 MG PO (22:19)
[2020-06-13 22:54] LABS: ABSOLUTE BASOPHILS 0.1 thou/uL (0.0-0.2); ABSOLUTE EOSINOPHILS 0.6 thou/uL (0.0-0.7); ABSOLUTE LYMPHOCYTES 1.1 thou/uL (0.8-5.3); ABSOLUTE MONOCYTES 0.6 thou/uL (0.0-1.2); ABSOLUTE NEUTROPHILS 6.9 thou/uL (1.6-8.1); BASOPHILS 0.9 %; HEMATOCRIT 29.5 % (42.0-52.0); MCH 31.4 pg (26.0-34.0); MCHC 33.9 g/dL (28.0-37.0); MCV 92.8 fL (80.0-100.0); MONOCYTES 6.8 %; MPV 7.6 fl. (7.2-11.1); NUCLEATED RBCS 0 /100WBC; PLATELET COUNT* 190 thou/uL (150-400); POLYS 74.3 %; RBC 3.18 mil/uL (4.50-6.00); RDW-CV 13.6 % (10.5-14.5); WBC 9.3 thou/uL (4.0-11.0)
[2020-06-13 23:00] LABS: CALCIUM 8.3 mg/dL (8.5-10.1); CREATININE 1.1 mg/dL (0.6-1.3); POTASSIUM 4.3 mmol/L (3.5-5.1)
[2020-06-13 23:04] LABS: APTT 23.1 Seconds (25.0-31.3); INR 1.1; PROTIME 11.3 Seconds (9.20-11.50)
[2020-06-13 23:10] LABS: ALBUMIN 3.2 g/dL (3.4-5.0); TOTAL BILIRUBIN 0.2 mg/dL (<0.1-1.0); TOTAL PROTEIN 6.2 g/dL (6.4-8.2)
[2020-06-13 23:53] LABS: BE -1.2 mmol/L (-2 to +3); PCO2 42.3 mmHg (35.0-45.0); pH 7.372 (7.340-7.450)
[2020-06-13 23:57] LABS: PO2 > 488.8 mmHg (75.0-100.0)
[2020-06-14 03:00] VITALS: BP 111/93
[2020-06-14 04:15] VITALS: BP 134/94
--- NOTE | 2020-06-14 04:41 | NUR ---
PT TO ROOM AT 0445. PT VERY CONFUSED, UNABLE TO ANSWER ANY QUESTIONS. COOPERATIVE. PT INCONT OF URINE, JEANS SOAKED. TELEMETRY APPLIED SHOWING SR. O2 ON AT 2L/NC. O2 SAT 100%. LUNG SOUNDS COURSE WITH AUDIBLE WHEEZING. ADMISSION CAME FROM PREVIOUS CHART. BED ALARM ON. HEPARIN INFUSING ORDERED.
[2020-06-14 05:38] LABS: AMP/METHAMP POSITIVE (Negative); BARBITURATES Negative (Negative); BENZODIAZEPINES Negative (Negative); COCAINE Negative (Negative); METHADONE Negative (Negative); OPIATES Negative (Negative); PCP Negative (Negative); THC POSITIVE (Negative)
[2020-06-14 09:22] VITALS: BP 113/66
[2020-06-14 12:00] VITALS: BP 127/63
--- NOTE | 2020-06-14 13:02 | NUR ---
Pt is alert, but seemed a little confused. Tested positive for meth, Pt admits to using. Pt was recently dc on 06/01 to [facility] in [place], Pt stated that he was there for 8 days. Pt does not remember what lead to this hospitalization. Pt states that he plans to dc to either his mom's or sisters once medically stable, Pt had been staying in his car. No DME. Hx of [facility]. No hx of SNF. Pt on hep gtt. Detox from meth. Anticipate dc in a few days, home once medically stable. Following.
--- NOTE | 2020-06-14 14:01 | EKG ---
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 <ELECTRONICALLY SIGNED> By: Desmond Bermuedz MD, FAC 06/14/20 1401 2214 221 Desmond Bermudez MD, [facility] /EPI
--- NOTE | 2020-06-14 14:01 | EKG ---
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 : 1955 Requested By: Roslyn Pritchett Order Number: [id number] Tonja MD: Desmond Bermudez Measurements Intervals [place] Rate: 80 P: 47 NM: 161 QRS: -17 QRSD: 117 T: 38 QT: 451 QTc: 521 Interpretive Statements Sinus rhythm Nonspecific intraventricular conduction delay Anteroseptal infarct, old Baseline wander in lead(s) V2 Compared to ECG 06/13/2020 22:14:19 Intraventricular conduction delay now present Myocardial infarct finding still present Electronically Signed On 06-14-2020 14:01:16 CRANE HELPER by Desmond Bermudez [email or web address] <ELECTRONICALLY SIGNED> By: Desmond Bermudez MD, FACC 06/14/20 1401 0028 0028 Desmond Bermudez MD, [facility] /EPI
[2020-06-14 16:00] VITALS: BP 93/53
[2020-06-14 22:30] VITALS: BP 89/61
[2020-06-15] VITALS: BP 100/54
[2020-06-15 03:55] LABS: HEMATOCRIT 30.9 % (42.0-52.0); HEMOGLOBIN 10.3 gm/dL (14.0-18.0); MCH 30.7 pg (26.0-34.0); MCHC 33.4 g/dL (28.0-37.0); MPV 8.1 fl. (7.2-11.1); RBC 3.36 mil/uL (4.50-6.00); RDW-CV 13.9 % (10.5-14.5); WBC 12.3 thou/uL (4.0-11.0)
[2020-06-15 03:56] LABS: CALCIUM 8.5 mg/dL (8.5-10.1); CREATININE 1.3 mg/dL (0.6-1.3); POTASSIUM 4.2 mmol/L (3.5-5.1)
[2020-06-15 04:00] VITALS: BP 100/66
--- NOTE | 2020-06-15 04:42 | NUR ---
PT ALERT AND ORIENTED. SLEPT ALL SHIFT. NO REPORTS OF ANY PAIN OR NAUSEA. NO SIGNS OF ANXIETY OR AGITATION. ACHS 62 AT BEDTIME GAVE SANDWICH AND ICE CREAM. RECEIVED ALL MEDS SCHEDULED.
[2020-06-15 08:00] VITALS: BP 103/68
--- NOTE | 2020-06-15 08:39 | CON ---
[address] [address] CONSULTATION Name: LULI WOLF Room: [address] IN M.R.#: [id number] Admission: 06/13/20 Attend Phys: Jevon Quezada Discharge: Date of : 59 Report #: [id number] THIS REPORT FOR: cc: FAM - No family physician/PCP FAM - No family physician/PCP ~ Luli Bermudez MD [facility] CONSULTATION INDICATION: Acute on chronic congestive heart failure. HISTORY OF PRESENT ILLNESS: The patient is a 64-year-old gentleman with history of an ischemic cardiomyopathy with an ejection fraction estimated to be 30-35% on noninvasive studies. He has a history of previous anterior wall myocardial infarction with drug-eluting stent placement to the proximal to mid left anterior descending coronary artery. Due to some complications and occasional medical noncompliance, the patient has had at least 3 separate incidents of acute occlusion of the stent in the left anterior descending coronary artery. He has had repeat intervention on 2 other occasions with bare metal and drug-eluting stents placed. The patient returns with complaints of midsternal chest discomfort and increasing shortness of breath, orthopnea and dyspnea on exertion. NT-proBNP is elevated consistent with acute congestive heart failure. Chest x-ray shows minimal pulmonary vascular congestion. In this setting, his troponin is minimally elevated, likely due to cardiac strain. EKG shows old anteroseptal infarct without new changes. PAST MEDICAL HISTORY: 1. Coronary artery disease with percutaneous coronary intervention originally in 03/2018 with a drug-eluting stent placement to the proximal left anterior descending coronary artery. He has moderate nonocclusive disease in the circumflex and right coronary arteries. 2. Recurrence occlusions/thrombosis of the LAD stent with multiple interventions. 3. Type 2 diabetes mellitus. 4. Dyslipidemia. 5. Tonsillectomy. ALLERGIES: None documented. HOME MEDICATIONS: Include aspirin, Lipitor, Zetia, fenofibrate, insulin, Synthroid, metoprolol, Effient and Flomax. FAMILY HISTORY: Positive for coronary artery disease. SOCIAL HISTORY: The patient is a daily smoker. He denies use of alcohol. He has a history of methamphetamine and marijuana use in [place] [address] CONSULTATION Name: LULI WOLF Room: [address]#: [id number] Admission: 06/13/20 Attend Phys: Jevon Quezada Discharge: Date of : 59 Report #: [id number] REVIEW OF SYSTEMS: A 14-point review of systems otherwise unremarkable. PHYSICAL EXAMINATION: VITAL SIGNS: Stable. Blood pressure is 118/68, pulse is 78 and regular. GENERAL: This is a thin elderly male, in no distress. Mood and affect blunted. HEENT: Head is normocephalic. Extraocular muscles intact. Mucous membranes are moist. NECK: Shows no jugular venous distention. There are no carotid bruits. CHEST: Reveals clear lung gonzalez without wheezes or rales. CARDIOVASCULAR: Reveals a regular rhythm with normal S1 and S2. I do not appreciate gallop or murmur. ABDOMEN: Reveals normal bowel sounds. The abdomen is soft and nontender. EXTREMITIES: Shows no edema. Peripheral pulses are 2+ and easily palpable. RADIOLOGICAL DATA: A 12-lead EKG shows sinus rhythm with old anteroseptal infarct. LABORATORY DATA: Reviewed. Sodium 141, potassium 4.3, chloride 108, bicarbonate 26, BUN 23, creatinine 1.1, serum glucose 163. LFTs are within normal limits. Troponin is 0.29 on arrival and subsequently 0.18 and 0.20. NT-proBNP is 4539. White blood cell count 9.3, hemoglobin 10.0, platelet count 190,000. IMPRESSION AND RECOMMENDATIONS: 1. Acute on chronic systolic heart failure. We will give IV Lasix bolus and treat daily. Follow I's and O's carefully. We will repeat labs in a.m. Continue metoprolol succinate. Consider SEBAS or ARB if blood pressure remained stable. 2. Type 2 myocardial infarction with elevated troponin due to strain from congestive heart failure. I have no plan for invasive evaluation at this time. 3. Dyslipidemia. Resume atorvastatin and fenofibrate and Zetia. 4. History of hypertension. Blood pressure low normal presently. We will follow and make adjustments as needed. 5. Chronic tobacco use, cessation advised. 6. Polysubstance abuse, cessation advised. <ELECTRONICALLY SIGNED> By: Luli Bermudez MD, FACC 06/15/20 0839 1244 [id number] Bermudez MD, FACC /nt
[2020-06-15 11:13] VITALS: BP 103/68
--- NOTE | 2020-06-15 11:34 | NUR ---
PT DISCHARGED HOME AMBULATED TO FRIEND PICKING HIM UP NO NEW MEDICATIONS FOLLOW UP APPOINTMENTS GIVEN TO PATIENT EDUCATION GIVE IV AND MONITOR DISCONTINUED NO CONCERNS AT THIS TIME
--- NOTE | 2020-06-15 12:31 | NUR ---
The patient left the hospital before he was seen by cardiac rehab. The patient was educated by cardiac rehab 06/14/20. The patient has a follow up visit with the cardiology LIQUOR GRINDER MILL OPERATOR, Jazmine Vargas, on 06/20/20 at 9AM. The patient was given an appointment card with this date on it, prior to discharge, by the staff nurse.
== END 2020-06-15 11:35 | disposition home or self-care (01) | DRG 280 ==
LOC: M.ERS 22:09 → M.2W 23:45 → M.TBA-ER 23:45 → M.2W 06-14 03:12
PROVIDERS: Family Medicine; Personal Emergency Response Attendant; ADMIT Internal Medicine; ATTEND Internal Medicine
DX: I11.0 Hypertensive heart disease with heart failure (principal); J96.21 Acute and chronic respiratory failure with hypoxia; I21.A1 Myocardial infarction type 2; I50.43 Acute on chronic combined systolic (congestive) and diastolic (congestive) heart failure; J44.9 Chronic obstructive pulmonary disease, unspecified; E03.9 Hypothyroidism, unspecified; I25.10 Atherosclerotic heart disease of native coronary artery without angina pectoris; E11.9 Type 2 diabetes mellitus without complications; G89.29 Other chronic pain; E78.5 Hyperlipidemia, unspecified; I25.5 Ischemic cardiomyopathy; F17.210 Nicotine dependence, cigarettes, uncomplicated; I95.9 Hypotension, unspecified; F19.10 Other psychoactive substance abuse, uncomplicated; Z20.822 Contact with and (suspected) exposure to COVID-19; Z95.5 Presence of coronary angioplasty implant and graft; I25.2 Old myocardial infarction; Z79.82 Long term (current) use of aspirin; Z79.899 Other long term (current) drug therapy; Z79.4 Long term (current) use of insulin; Z28.21 Immunization not carried out because of patient refusal

== ENCOUNTER 2020-06-23 14:05 | Inpatient (IN) | payer MEDICARE ==
[~2020-06-23] VITALS: Ht 172.7 cm; Wt 84.8 kg
[2020-06-23] VITALS (10 sets, daily range): BP systolic 97–140; BP diastolic 69–82
[~2020-06-23 14:05] MED LIST changes: +FLOMAX0.4 MG PO
[2020-06-23 14:27] LABS: ABSOLUTE EOSINOPHILS 0.3 thou/uL (0.0-0.7); ABSOLUTE LYMPHOCYTES 1.4 thou/uL (0.8-5.3); ABSOLUTE MONOCYTES 0.8 thou/uL (0.0-1.2); ABSOLUTE NEUTROPHILS 4.4 thou/uL (1.6-8.1); BASOPHILS 0.6 %; EOSINOPHILS 4.6 %; HEMATOCRIT 36.1 % (42.0-52.0); HEMOGLOBIN 11.9 gm/dL (14.0-18.0); LYMPHOCYTES 19.8 %; MCH 30.9 pg (26.0-34.0); MCHC 33.1 g/dL (28.0-37.0); MCV 93.4 fL (80.0-100.0); MPV 7.6 fl. (7.2-11.1); NUCLEATED RBCS 0 /100WBC; PLATELET COUNT* 269 thou/uL (150-400); RBC 3.86 mil/uL (4.50-6.00); RDW-CV 14.7 % (10.5-14.5); WBC 6.9 thou/uL (4.0-11.0)
[2020-06-23 14:38] LABS: CALCIUM 8.9 mg/dL (8.5-10.1); CREATININE 1.3 mg/dL (0.6-1.3); POTASSIUM 4.3 mmol/L (3.5-5.1)
[2020-06-23 14:39] LABS: APTT 21.1 Seconds (25.0-31.3); INR 1.1; PROTIME 11.8 Seconds (9.20-11.50)
[2020-06-23 14:48] LABS: ALBUMIN 3.7 g/dL (3.4-5.0); MAGNESIUM 1.9 mg/dL (1.8-2.4); TOTAL BILIRUBIN 0.4 mg/dL (<0.1-1.0); TOTAL PROTEIN 6.9 g/dL (6.4-8.2)
--- NOTE | 2020-06-23 18:33 | EKG ---
[place] [address] ELECTROCARDIOGRAM REPORT Name: DESMOND WOLF Room: [address]#: [id number] Admission: 06/23/20 Attend Phys: Desmond Bermudez, Discharge: Date of : 59 Date of Service: 06/23/20 1407 Report #: [id number] THIS REPORT FOR: //name// [facility] ED Test Date: 2020-06-23 Test Time: 14:07:36 Pat Name: DESMOND WOLF Department: Room: Gender: Transferrer: ABIGAIL : 1955 Requested By: Finesse Grove Order Number: [id number] MD: Desmond Bermudez Measurements Intervals [place] Rate: 85 P: 44 CA: 173 QRS: -16 QRSD: 114 T: 95 QT: 370 QTc: 440 Interpretive Statements Sinus rhythm Probable left atrial enlargement Nonspecific interventricular conduction delay Cannot rule out anteroseptal infarct age indeterminate Compared to ECG 06/14/2020 00:28:32 Left ventricular hypertrophy now present Early repolarization now present Myocardial infarct finding still present Electronically Signed On 06-23-2020 18:33:44 SHANK PAPERER by Desmond Bermudez [email or web address] <ELECTRONICALLY SIGNED> By: Desmond Bermudez MD, FACC 06/23/20 1833 1407 1407 Desmond Bermudez MD, FAC /EPI
--- NOTE | 2020-06-23 18:34 | EKG ---
[place] [address] ELECTROCARDIOGRAM REPORT Name: LULI WOLF Room: [address]#: [id number] Admission: 06/23/20 Attend Phys: Luli Bermudez, Discharge: Date of : 59 Date of Service: 06/23/20 1551 Report #: [id number] THIS REPORT FOR: //name// [facility] ED Test Date: 2020-06-23 Test Time: 15:51:35 Pat Name: LULI WOLF Department: Room: Gender: Floor Care Technician: : 1955 Requested By: Finesse Grove Order Number: [id number] MD: Luli Bermudez Measurements Intervals [place] Rate: 86 P: 43 NE: 174 QRS: -27 QRSD: 116 T: 118 QT: 373 QTc: 446 Interpretive Statements Sinus rhythm Probable left atrial enlargement Nonspecific interventricular conduction delay anterior infarct, old, possible Compared to ECG 06/23/2020 14:07:36 No significant changes Electronically Signed On 06-23-2020 18:34:09 CHEMICAL DEPENDENCY PROFESSIONAL by Luli Bermudez [email or web address] <ELECTRONICALLY SIGNED> By: Luli Bermudez MD, FACC 06/23/20 1834 1551 1551 Luli Bermudez MD, FAC /EPI
[2020-06-24] VITALS (8 sets, daily range): BP systolic 96–119; BP diastolic 55–84
[2020-06-24 04:16] LABS: ABSOLUTE EOSINOPHILS 0.2 thou/uL (0.0-0.7); ABSOLUTE NEUTROPHILS 6.3 thou/uL (1.6-8.1); BASOPHILS 0.3 %; EOSINOPHILS 1.9 %; HEMATOCRIT 34.6 % (42.0-52.0); HEMOGLOBIN 11.5 gm/dL (14.0-18.0); LYMPHOCYTES 11.5 %; MCH 30.8 pg (26.0-34.0); MCHC 33.2 g/dL (28.0-37.0); MCV 92.7 fL (80.0-100.0); MONOCYTES 12.1 %; NUCLEATED RBCS 0 /100WBC; PLATELET COUNT* 211 thou/uL (150-400); POLYS 74.2 %; RBC 3.73 mil/uL (4.50-6.00); RDW-CV 14.3 % (10.5-14.5); WBC 8.4 thou/uL (4.0-11.0)
[2020-06-24 04:38] LABS: ALBUMIN 3.3 g/dL (3.4-5.0); ALKALINE PHOSPHATASE 57 U/L (46-116); ANION GAP 12 mmol/L (7-16); BUN 18 mg/dL (7-18); CALCIUM 8.8 mg/dL (8.5-10.1); CHLORIDE 104 mmol/L (98-107); CHOLESTEROL 80 mg/dL (<200); CO2 25 mmol/L (21-32); CREATININE 1.2 mg/dL (0.6-1.3); GLUCOSE 60 mg/dL (70-99); HDL CHOLESTEROL 31 mg/dL (>40); LDL CHOLESTEROL 37 mg/dL (<100); POTASSIUM 3.7 mmol/L (3.5-5.1); SGOT 33 U/L (15-37); SGPT 52 U/L (30-65); SODIUM 141 mmol/L (136-145); TC:HDL 2.6 Ratio (Not establshd); TOTAL BILIRUBIN 0.7 mg/dL (<0.1-1.0); TOTAL PROTEIN 6.2 g/dL (6.4-8.2); TRIGLYCERIDE 64 mg/dL (<150); TROPONIN-I LEVEL 0.12 ng/mL (<0.06); VLDL 13 mg/dL (<40)
[2020-06-24 04:56] LABS: SERUM ASSESSMENT CLEAR
--- NOTE | 2020-06-24 11:09 | CARD ---
[address] [address] CARDIAC CATH REPORT Name: DESMOND WOLF Room: [address] IN .R.#: [id number] Admission: 06/23/20 Attend Phys: Yaya Thomas MD Discharge: Date of : 59 Report #: [id number] THIS REPORT FOR: cc: Physician not on staff Physician not on staff ~ Pepe Strong MD [facility] APPROVED REPORT Study performed: 06/23/2020 16:29:14 Patient Details Patient Status: ED Room #: The patient is a 64 year-old male Event Personnel Desmond Bermudez Tonsorial Artist, Pepe Strong Psychologist Counseling, Shaina Curiel Direct Service Worker, Carla Figueroa RTR Scrub, Hallie Mccollum RTR Monitor Procedures Performed Art Access - R femoral artery* , Akash Access - R femoral vein , Left Heart Cath w/or w/o Coronaries LHC, JUAN Place w/wo Plasty Single LAD, JUAN Place w/wo Plasty Single CIRC , Hemostasis w/ Mynx RFA and RFV Indication Non-STEMI Risk Factors Hypercholesterolemia, Tobacco History () Previous Procedures/Diagnoses Previous PCI, Previous MO Admission/Lab Medications/Medications given during procedure Angiomax IV 12 ml, Angiomax Drip IV 28 ml per hr, Effient PO 30 mg, Atropine 1 mg Procedure Narrative The patient was brought urgently to the Cardiac Catheterization Laboratory and was prepped and draped in a sterile manner. The right femoral was infiltrated with 2% Lidocaine subcutaneous anesthesia. A 6F [place] sheath was inserted into the right femoral artery and right femoral vein. Coronary angiography [place] [address] CARDIAC CATH REPORT Name: DESMOND WOLF Room: [address]#: [id number] Admission: 06/23/20 Attend Phys: Yaya Thomas MD Discharge: Date of : 59 Report #: [id number] diagnostic catheters. The right coronary system was accessed and visualized with a 6F JR4 catheter. The left coronary system was accessed and visualized with a 6F XBLAD 3.5 Guide catheter. The left ventricle was accessed and visualized with a 6F JR4 catheter. Left ventricular/Aortic Valve gradient assessed via catheter pullback. Pre-demployment femoral angiogram was performed . Closure device was deployed with a 6 Fr Mynx to right femoral artery and right femoral vein. The patient tolerated the procedure well and there were no complications associated with the procedure. There was no hematoma. Post procedure the patient vagaled and developed bradycardia. Atropine 1 mg was given and patient rhythm became sinus rhythm again. Intraoperative Conscious Sedation Sedation start time: 17:03 Case end Time: 18:02 No sedation given. Fluoro Time: 13.6 minutes Dose: DAP 507285 cGycm2 1891 mGy Contrast Type and Amount: Visipaque 310 ml Diagnostic Cath Left Main 0% narrowing LAD 80% focal mid LAD stenosis with widely patent proximal and mid LAD stents Diagonal 1 Total occlusion of the first diagonal branch with left to left collaterals filling the diagonal branch Circumflex 90% tubular mid circumflex stenosis with 60% proximal first marginal narrowing Right Coronary Large dominant vessel with 30% proximal and distal narrowing Left Ventriculography Left Ventriculography was not performed. Hemodynamics The aortic pressure is 101/67 mmHg with a mean of 60 mmHg. The left ventricular pressure is 101/21 mmHg with a mean of mmHg. The left ventricular end diastolic pressure is 35 mmHg. There was no gradient across the aortic valve upon pullback. PCI Technique Lesion Anticoagulation was achieved with Angiomax. Patient was preloaded with Angiomax IV 12 ml. Percutaneous coronary intervention was performed on the mid left anterior [place] [address] CARDIAC CATH REPORT Name: DESMOND WOLF Room: [address]#: [id number] Admission: 06/23/20 Attend Phys: Yaya Thomas MD Discharge: Date of : 59 Report #: [id number] lesion stenosis prior to intervention was 80% with PACHECO 3 flow. A 6F XB LAD 3.5 Guide Catheter was used to engage the lm ostium. A BMW 190cm Interventional Guidewire was used to cross the lesion. BALLOON DILATION A Balloon catheter Mini Trek RX 2.0 X 12 was inserted and inflated up to 10.00atm for 9seconds. Additional Inflation: 12.00atm for 11seconds. STENT DEPLOYMENT A drug-eluting stent [place] RX Stent 2.0X12mm was inserted and inflated up to 12.00atm for 9seconds. Additional Inflation: 12.00atm for 15seconds. Additional Inflation: 14.00atm for 9seconds. POST STENT DEPLOYMENT BALLOON DILATION A Balloon catheter NC Trek RX 2.25x12 was inserted and inflated up to 18.00atm for 12seconds. Additional Inflation: 18.00atm for 11seconds. Additional Inflation: 19.00atm for 11seconds. Final angiography reveals 0 % stenosis with PACHECO 3 flow. COMMENTS There was local thrombus at the site of 80% mid LAD stenosis PCI Technique Lesion 2 Percutaneous Coronary Intervention was performed on the Mid circumflex artery segment. Patient was preloaded with Angiomax IV 12 ml. The lesion stenosis prior to intervention was 90% with PACHECO 3 flow. A 6F XB LAD 3.5 Guide Catheter was used to engage the lm ostium. A BMW 190cm Interventional Guidewire was used to cross the lesion. Balloon Dilation A Balloon catheter Mini Trek RX 2.0 X 12 was inserted and inflated up to 8.00atm for 8seconds. Additional Inflation: 15.00atm for 12seconds. Additional Inflation: 17.00atm for 9seconds. Stent Deployment A drug-eluting stent Anthony RX Stent 2.0X22mm was inserted and inflated up to 12.00atm for 9seconds. Additional Inflation: 14.00atm for 7seconds. Post Stent Deployment Balloon Dilation A Balloon catheter NC Trek RX 2.25x12 [place] [address] CARDIAC CATH REPORT Name: DESMOND WOLF Room: 220-P [facility] IN M.R.#: [id number] Admission: 06/23/20 Attend Phys: Yaya Thomas MD Discharge: Date of : 59 Report #: [id number] 18.00atm for 10seconds. Additional Inflation: 20.00atm for 11seconds. Additional Inflation: 22.00atm for 9seconds. Final angiography reveals 10 % stenosis with PACHECO 3 flow. Conclusion 1. Severe multivessel coronary artery disease characterized by the following: A widely patent proximal and mid LAD stents with 80% focal mid LAD stenosis with local thrombus at the site; there was chronic total occlusion of the first diagonal with left to left collaterals filling the diagonal branch B nondominant circumflex with 90% tubular mid vessel stenosis and 60% proximal first marginal narrowing C dominant right coronary artery with 30% proximal and distal narrowing 2. Severe elevation of left ventricular end-diastolic pressure at rest 3. Successful PCI with deployment of drug-eluting stent at the site of 80% focal mid LAD stenosis with 0% residual narrowing following stent deployment PACHECO-3 flow to the distal vessel and no residual thrombus 4. Successful PCI with deployment of a drug-eluting stent at the site of 90% mid circumflex stenosis with 10% residual narrowing following stent deployment and PACHECO-3 flow to the distal vessel Recommendations Cardiac Risk Reduction Program Aggressive Medical Therapy Medications [place] [address] CARDIAC CATH REPORT Name: DESMOND WOLF Room: 220-P ADM IN M.R.#: [id number] Admission: 06/23/20 Attend Phys: Yaya Thomas MD Discharge: Date of : 59 Report #: [id number] Diagnostic Cath Approved by: Desmond Bermudez MD Date/Time: 06/24/2020 11:06:29 <ELECTRONICALLY SIGNED> By: Pepe Strong MD, FACC 06/24/20 1109 1109 1109Jodorys Strong MD, FACC /INF
--- NOTE | 2020-06-24 12:59 | EKG ---
[place] [address] ELECTROCARDIOGRAM REPORT Name: DESMOND WOLF Room: [address] IN [facility].#: [id number] Admission: 06/23/20 Attend Phys: Yaya Thomas, Discharge: Date of : 59 Date of Service: 06/23/202016 Report #: [id number] THIS REPORT FOR: //name// [facility] Test Date: 2020-06-23 Test Time: 20:17:41 Pat Name: DESMOND WOLF Department: Room: [facility] Gender: M Confectionery Cooker: JJ05 : 1955 Requested By: Desmond Bermudez Order Number: [id number] Tonja MD: Desmond Bermudez Measurements Intervals [place] Rate: 73 P: 28 [place]: 139 QRS: -12 QRSD: 122 T: 79 QT: 434 QTc: 479 Interpretive Statements Sinus rhythm IVCD Anterior infarct, old, possible Compared to ECG 06/23/2020 15:51:35 No significant changes noted Electronically Signed On 06-24-2020 12:58:58 CARNALLITE PLANT OPERATOR by Desmond Bermudez [email or web address] <ELECTRONICALLY SIGNED> By: Desmond Bermudez MD, FACC 06/24/20 1258 16 16 Desmond Bermudez MD, FAC /EPI
--- NOTE | 2020-06-24 13:01 | EKG ---
[place] [address] ELECTROCARDIOGRAM REPORT Name: LULI WOLF Room: [address] IN [facility].#: [id number] Admission: 06/23/20 Attend Phys: Yaya Thomas, Discharge: Date of : 59 Date of Service: 06/24/20 0459 Report #: [id number] THIS REPORT FOR: //name// [facility] Test Date: 2020-06-24 Test Time: 04:59:38 Pat Name: LULI WOLF Department: Room: [facility] Gender: M Coo: JJ05 : 1955 Requested By: Luli Bermudez Order Number: [id number] Reading MD: Luli Bermudez Measurements Intervals [place] Rate: 68 P: 31 UT: 151 QRS: -22 QRSD: 127 T: 72 QT: 452 QTc: 481 Interpretive Statements Sinus rhythm Probable left atrial enlargement IVCD Anterior infarct, old, possible Compared to ECG 06/23/2020 20:17:41 No significant changes Electronically Signed On 06-24-2020 13:00:59 GEOTECHNICAL DEPARTMENT MANAGER by Luli Bermudez [email or web address] <ELECTRONICALLY SIGNED> By: Luli Bermudez MD, FACC 06/24/20 1300 0459 0459 Luli Bermudez MD, FAC /EPI
--- NOTE | 2020-06-24 14:03 | 2DMMODE ---
[place] [address] 2 D/M-MODE ECHOCARDIOGRAM Name: LULI WOLF Room: [address] IN [facility]#: [id number] Admission: 06/23/20 Attend Phys: Yaya Thomas, Discharge: Date of : 59 Date of Service: 06/24/20 1402 Report #: [id number] THIS REPORT FOR: cc: Physician not on staff Physician not on staff Pepe Strong MD [facility] ~ APPROVED REPORT Study performed: 06/24/2020 11:19:19 EXAM: Comprehensive 2D, Doppler, and color-flow Echocardiogram Patient Location: In-Patient Room #: 220 Status: routine BSA: 1.94 HR: 77 bpm BP: 110/73 mmHg Rhythm: NSR Other Information Study Quality: Good Indications Acute TX 2D Dimensions IVSd: 9.52 (7-11mm) LVOT Diam: 20.53 (18-24mm) LVDd: 56.52 mm PWd: 9.62 (7-11mm) Ascending Ao: 32.61 (22-36mm) LVDs: 49.58 (25-40mm) Aortic Root: 30.64 mm Volumes Left Atrial Volume (Systole) LA ESV Index: 36.80 mL/m2 Aortic Valve AoV Peak Stanley.: 1.43 m/s AO Peak Gr.: 8.23 mmHg LVOT Max P.28 mmHg AO Mean Gr.: 4.77 mmHg LVOT Mean P.51 mmHg LVOT Max V: 1.15 m/s AO V2 VTI: 25.37 cm LVOT Mean V: 0.73 m/s ERNESTO (VTI): 2.64 cm2 LVOT V1 VTI: 20.25 [place] [address] 2 D/M-MODE ECHOCARDIOGRAM Name: LULI WOLF Room: [address] IN .R.#: [id number] Admission: 06/23/20 Attend Phys: Yaya Thomas, Discharge: Date of : 59 Date of Service: 06/24/20 1402 Report #: [id number] Mitral Valve E/A Ratio: 2.81 MV Decel. Time: 161.61 ms MV E Max Stanley.: 1.12 m/s MV PHT: 46.87 ms MVA (PHT): 4.69 cm2 TDI E/Lateral E': 8.62 E/Medial E': 16.00 Medial E' Stanley.: 0.07 m/s Lateral E' Stanley.: 0.13 m/s Pulmonary Valve PV Peak Stanley.: 1.00 m/s PV Peak Gr.: 3.99 mmHg Tricuspid Valve RAP Estimate: 5.00 mmHg TR Peak Gr.: 29.18 mmHg RVSP: 34.00 mmHg PA Pressure: 34.00 mmHg Left Ventricle Left ventricle is mildly dilated. There are segmental wall motion abnormalities with distal septal and anteroapical hypo - akinesis. There is normal left ventricular wall thickness. Left ventricular systolic function is moderately decreased. LVEF is 35%. Grade IV - fixed restrictive diastolic dysfunction. Right Ventricle The right ventricle is normal size. The right ventricular systolic function is normal. Atria Left atrium is mildly dilated. The right atrium size is normal. Aortic Valve Mild aortic valve sclerosis. No aortic regurgitation is present. There is no aortic valvular stenosis. Mitral Valve The mitral valve is normal in structure. Mild mitral regurgitation. No evidence of mitral valve stenosis. Tricuspid Valve The tricuspid valve is normal in structure. Mild tricuspid regurgitation. Mild pulmonary [place] [address] 2 D/M-MODE ECHOCARDIOGRAM Name: LULI WLOF Room: [address] IN [facility]#: [id number] Admission: 06/23/20 Attend Phys: Yaya Thomas, Discharge: Date of : 59 Date of Service: 06/24/20 1402 Report #: [id number] Pulmonic Valve The pulmonary valve is normal in structure. There is no pulmonic valvular regurgitation. Great Vessels The aortic root is normal in size. IVC is normal in size and collapses >50% with inspiration. Pericardium There is no pericardial effusion. <Conclusion> Left ventricle is mildly dilated. There is normal left ventricular wall thickness. Left ventricular systolic function is moderately decreased. LVEF is 35%. Grade IV - fixed restrictive diastolic dysfunction. The right ventricle is normal size. Left atrium is mildly dilated. Mild aortic valve sclerosis. No aortic regurgitation is present. There is no aortic valvular stenosis. The mitral valve is normal in structure. Mild mitral regurgitation. Mild tricuspid regurgitation. Mild pulmonary hypertension. IVC is normal in size and collapses >50% with inspiration. There is no pericardial effusion. There are segmental wall motion abnormalities with distal septal and anteroapical hypo - akinesis. <ELECTRONICALLY SIGNED> By: Pepe Strong MD, FACC 06/24/201401 01 01 Pepe Strong MD, FACC /INF
--- NOTE | 2020-06-24 16:33 | CON ---
[address] [address] CONSULTATION Name: LULI WOLF Room: [address] M.R.#: [id number] Admission: 06/23/20 Attend Phys: Yaya Thomas MD Discharge: Date of : 59 Report #: [id number] THIS REPORT FOR: cc: Physician not on staff Physician not on staff ~ Luli Bermudez MD [facility] DATE OF SERVICE: 06/23/2020 CARDIOLOGY CONSULT INDICATION: Non-ST elevation myocardial infarction/acute coronary syndrome. HISTORY OF PRESENT ILLNESS: The patient is a very pleasant 64-year-old gentleman with longstanding history of coronary artery disease. The patient has an ischemic cardiomyopathy with an EF of 30-35%. He has had multiple interventions to the proximal to mid left anterior descending coronary artery. The patient had been evaluated in the Emergency Room, at which time he had acute onset new chest pain. EKG showed sinus rhythm with intraventricular conduction delay and no ST segment depression. The patient was brought urgently to the cardiac catheterization lab. Catheterization showed a 90% thrombosed region distal to the mid LAD stent. The patient underwent percutaneous coronary intervention with good result. The patient also was noted to have 80% proximal circumflex narrowing for which he underwent intervention with drug-eluting stent placement. PAST MEDICAL HISTORY: 1. Coronary artery disease with percutaneous coronary intervention originally in 03/2018 to the proximal LAD with multiple recurrent episodes of in-stent thrombosis and intervention. 2. Type 2 diabetes mellitus. 3. Dyslipidemia. 4. Tonsillectomy. ALLERGIES: None documented. HOME MEDICATIONS: Effient 10 mg daily, aspirin 81 mg daily, Lipitor, Zetia, fenofibrate, insulin, and Synthroid. FAMILY HISTORY: Positive for coronary artery disease. SOCIAL HISTORY: The patient is a daily smoker. He denies use of alcohol. 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 REVIEW OF SYSTEMS: Not obtained in [place] [address] CONSULTATION Name: LULI WOLF Room: [address]#: [id number] Admission: 06/23/20 Attend Phys: Yaya Thomas MD Discharge: Date of : 59 Report #: [id number] PHYSICAL EXAMINATION: VITAL SIGNS: Blood pressure was 82/60 with a pulse of 80. GENERAL: This is an elderly gentleman who appears to be in moderate distress with chest discomfort. HEENT: Head is normocephalic, atraumatic. Extraocular muscles intact. Mucous membranes are moist. NECK: Shows no jugular venous distention. I do not appreciate carotid bruits. CHEST: Reveals rales, basilar with diminished breath sounds. CARDIAC: Regular rhythm without gallop or murmur. ABDOMEN: Soft, nontender. EXTREMITIES: Shows no edema. Pulses 2+ and palpable. Chest x-ray was without acute process. LABORATORY DATA: Initial troponin was less than 0.06. NT-proBNP 3902. IMPRESSION AND RECOMMENDATIONS: 1. Acute coronary syndrome with non-ST elevation myocardial infarction involving the mid left anterior descending coronary artery. The patient underwent drug-eluting stent placement. He was given a repeat bolus of Effient at 30 mg and will continue 10 mg daily. Continue aspirin 81 mg daily. We will obtain echocardiogram in a.m. 2. Dyslipidemia. Continue atorvastatin at current dose. Repeat fasting lipid profile at this time. 3. Ischemic cardiomyopathy. LVEDP presently elevated consistent with acute on chronic diastolic and systolic heart failure. We will give moderate dose of IV Lasix for diuresis. 4. Type 2 diabetes mellitus per hospitalist. 5. History of tobacco use, cessation will be advised. <ELECTRONICALLY SIGNED> By: Luli Bermudez MD, FACC 06/24/20 1633 1815 2134Micdez Bermudez MD, FACC /nt
[2020-06-25] VITALS: BP 92/53
[2020-06-25 04:00] VITALS: BP 98/56
[2020-06-25 04:14] LABS: CALCIUM 8.7 mg/dL (8.5-10.1); CREATININE 1.4 mg/dL (0.6-1.3); POTASSIUM 4.2 mmol/L (3.5-5.1); TOTAL BILIRUBIN 0.3 mg/dL (<0.1-1.0); TOTAL PROTEIN 6.3 g/dL (6.4-8.2)
[2020-06-25 04:17] LABS: ABSOLUTE EOSINOPHILS 0.1 thou/uL (0.0-0.7); ABSOLUTE LYMPHOCYTES 1.2 thou/uL (0.8-5.3); ABSOLUTE MONOCYTES 0.8 thou/uL (0.0-1.2); ABSOLUTE NEUTROPHILS 3.3 thou/uL (1.6-8.1); BASOPHILS 0.5 %; EOSINOPHILS 2.6 %; HEMATOCRIT 33.5 % (42.0-52.0); HEMOGLOBIN 11.1 gm/dL (14.0-18.0); LYMPHOCYTES 22.5 %; MCH 30.8 pg (26.0-34.0); MCHC 33.2 g/dL (28.0-37.0); MCV 92.8 fL (80.0-100.0); MONOCYTES 14.7 %; MPV 8.2 fl. (7.2-11.1); NUCLEATED RBCS 0 /100WBC; PLATELET COUNT* 205 thou/uL (150-400); POLYS 59.7 %; RBC 3.61 mil/uL (4.50-6.00); RDW-CV 14.3 % (10.5-14.5); WBC 5.5 thou/uL (4.0-11.0)
[2020-06-25 08:00] VITALS: BP 106/65
[2020-06-25] MEDS ORDERED: LASIX 20 MG TAB20 MG PO (08:35)
[2020-06-25] MEDS ORDERED: EFFIENT10 MG PO (08:35)
[2020-06-25 11:57] VITALS: BP 117/75
[2020-06-25 12:44] VITALS: BP 117/75
== END 2020-06-25 13:45 | disposition home or self-care (01) | DRG 246 ==
LOC: M.ERS 14:05 → M.TBA-CV 16:52 → M.CL 16:52 → M.ERS 17:06 → M.TBA-ER 19:20 → M.2W 19:20 → M.ICU 19:20 → M.CL 19:20 → M.ICU 19:37 → M.2W 06-24 09:11
PROVIDERS: Emergency Medicine Emergency Medical Services; Internal Medicine Cardiovascular Disease; ADMIT Internal Medicine; ATTEND Internal Medicine
DX: I21.4 Non-ST elevation (NSTEMI) myocardial infarction (principal); G92 Toxic encephalopathy; I50.43 Acute on chronic combined systolic (congestive) and diastolic (congestive) heart failure; F19.10 Other psychoactive substance abuse, uncomplicated; I95.9 Hypotension, unspecified; I25.5 Ischemic cardiomyopathy; J44.9 Chronic obstructive pulmonary disease, unspecified; I25.10 Atherosclerotic heart disease of native coronary artery without angina pectoris; G89.29 Other chronic pain; E03.9 Hypothyroidism, unspecified; E11.9 Type 2 diabetes mellitus without complications; E78.5 Hyperlipidemia, unspecified; F17.200 Nicotine dependence, unspecified, uncomplicated; Z20.822 Contact with and (suspected) exposure to COVID-19; I25.2 Old myocardial infarction; Z91.14 Patient's other noncompliance with medication regimen; Z95.5 Presence of coronary angioplasty implant and graft; Z79.82 Long term (current) use of aspirin; Z79.899 Other long term (current) drug therapy; Z79.4 Long term (current) use of insulin; Z28.21 Immunization not carried out because of patient refusal

== ENCOUNTER 2020-12-23 09:30 | Observation (INO) | payer MEDICARE ==
[2020-12-23] VITALS (17 sets, daily range): BP systolic 103–132; BP diastolic 54–77
[~2020-12-23] VITALS: Ht 172.7 cm; Wt 73.2 kg
--- NOTE | ~2020-12-23 | D ---
[address] [address] DISCHARGE SUMMARY Name: LULI WOLF Room: [address] Bhumi Bartholomew#: [id number] Admission: 12/23/20 Attend Phys: Pepe Strong MD, Discharge: 12/24/20 Date of : 59 Report #: [id number] THIS REPORT FOR: cc: [facility] - Clinic physician unknown [facility] - Clinic physician unknown Pepe Strong MD [facility] ~ DATE OF DISCHARGE: 12/24/2020 FINAL DISCHARGE DIAGNOSES: 1. Unstable angina. 2. Coronary artery disease. 3. Status post percutaneous coronary intervention to the left anterior descending artery. 4. Hyperlipidemia. 5. Tobacco abuse. 6. Diabetes mellitus. PROCEDURES: On 12/23/2020 -- left heart catheterization, left ventriculography, selective coronary arteriography, and percutaneous permanent deployment of a drug-eluting stent in the mid LAD. HOSPITAL COURSE: The patient is a 65-year-old male with complex coronary artery disease, status post multiple prior acute coronary syndromes with ST segment elevation, myocardial infarction on multiple occasions interrupted by PCIs. Initially, the episodes were related to medication noncompliance. More recently, he simply demonstrated aggressive coronary disease and required intervention to the mid LAD and mid circumflex in June of this year. Recently, he has noted increasing episodes of chest discomfort with moderate activity. He ultimately presented to the ER on 12/23 with episodes of angina compatible with unstable angina and an acute coronary syndrome. In that context, I recommended a cardiac catheterization, which revealed moderate impairment in global LV function with estimated ejection fraction of 35%. Anterolateral was akinetic. There was significant single-vessel disease with 75% mid LAD in-stent restenosis. Remainder of the LAD stents were widely patent. There was 30% narrowing of the mid circumflex within the stented region. The right coronary artery had 30% narrowing at the acute margin with atheromatous debris noted at that site without significant narrowing. I performed PCI, deploying one 2.5 x 12 mm Anthony drug-eluting stent in the mid LAD with 0% residual narrowing and PACHECO 3 flow to the distal vessel. He did well post-procedurally with good hemostasis at the right femoral site of catheterization. LABORATORY DATA: Laboratory included a sodium 140, potassium 4.5, [address], [place] [address] DISCHARGE SUMMARY Name: LUCIANOLULI Rajni Room: [address] Bhumi Bartholomew#: [id number] Admission: 12/23/20 Attend Phys: Pepe Strong MD, Discharge: 12/24/20 Date of : 59 Report #: [id number] creatinine 1.3. Hemoglobin 12.4, white blood cell count 8300 with 250,000 platelets, cholesterol 166, triglyceride 513, HDL 22, LDL not calculable. DISCHARGE MEDICATIONS: He was discharged home on the following medications: P.r.n. sublingual nitroglycerin if needed, fish oil 4000 mg daily, Levoxyl (L-thyroxine) 175 mcg daily, NovoLog insulin 22 units subcutaneously associated with meals, Levemir insulin 32 units subcutaneously at bedtime, fenofibrate 160 mg daily, atorvastatin 40 mg at bedtime, metoprolol succinate 50 mg daily, aspirin 81 mg daily, tamsulosin 0.4 mg at bedtime, prasugrel (Effient) 10 mg daily with 30 mg periprocedural dose given. The patient is scheduled to return to see me on 01/12/2021 at 1520 hours at the [facility] office. Therefore, the patient is discharged home in stable condition on the aforementioned medications with followup as described above. By: 0945 1022Pepe Strong MD, FACC /nt
[~2020-12-23 09:30] MED LIST changes: +EFFIENT10 MG PO; +LASIX 20 MG TAB20 MG PO
[2020-12-23 10:19] LABS: CALCIUM 8.7 mg/dL (8.5-10.1); CREATININE 1.2 mg/dL (0.6-1.3); POTASSIUM 4.3 mmol/L (3.5-5.1)
[2020-12-23 10:40] LABS: ABSOLUTE EOSINOPHILS 0.2 thou/uL (0.0-0.7); ABSOLUTE LYMPHOCYTES 1.1 thou/uL (0.8-5.3); ABSOLUTE MONOCYTES 0.6 thou/uL (0.0-1.2); ABSOLUTE NEUTROPHILS 2.9 thou/uL (1.6-8.1); BASOPHILS 0.9 %; EOSINOPHILS 3.1 %; HEMATOCRIT 37.1 % (42.0-52.0); HEMOGLOBIN 12.8 gm/dL (14.0-18.0); LYMPHOCYTES 23.8 %; MCH 32.7 pg (26.0-34.0); MCHC 34.5 g/dL (28.0-37.0); MCV 94.8 fL (80.0-100.0); MONOCYTES 11.4 %; MPV 7.8 fl. (7.2-11.1); NUCLEATED RBCS 0 /100WBC; PLATELET COUNT* 204 thou/uL (150-400); POLYS 60.8 %; RBC 3.91 mil/uL (4.50-6.00); RDW-CV 13.3 % (10.5-14.5); WBC 4.8 thou/uL (4.0-11.0)
[2020-12-23 10:43] LABS: ALBUMIN 3.6 g/dL (3.4-5.0); CK-MB MASS 2.5 ng/mL (<0.5-3.6); MAGNESIUM 1.7 mg/dL (1.8-2.4); TOTAL BILIRUBIN 0.2 mg/dL (<0.1-1.0)
--- NOTE | 2020-12-23 14:27 | EKG ---
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: SURAJ : 1955 Requested By: Rehan Washington Order Number: [id number] MD: Pepe Strong Measurements Intervals [place] Rate: 58 P: 29 WI: 162 QRS: 7 QRSD: 116 T: -13 QT: 407 QTc: 400 Interpretive Statements Sinus rhythm Incomplete left bundle branch block Possible jam-septal scar Compared to ECG 06/24/2020 04:59:38 IVCD of the left type persists Myocardial infarct finding still present Electronically Signed On 12-23-2020 14:27:36 CDT by Pepe Strong [email or web address] <ELECTRONICALLY SIGNED> By: Pepe Strong MD, FAC 12/23/20 1427 1336 1336 Pepe Strong MD, FAC /EPI
--- NOTE | 2020-12-23 14:55 | CARD ---
[address] [address] CARDIAC CATH REPORT Name: LULI WOLF Room: [address] Bhumi M.R.#: [id number] Admission: 12/23/20 Attend Phys: Pepe Strong MD, Discharge: Date of : 59 Report #: [id number] THIS REPORT FOR: cc: [facility] - Clinic physician unknown [facility] - Clinic physician unknown Pepe Strong MD [facility] ~ APPROVED REPORT Study performed: 12/23/2020 11:04:46 Patient Details Patient Status: ED Room #: The patient is a 65 year-old male Event Personnel Pepe Strong City Letter Carrier, Catherine Toro RN Oyster Buyer, Carla Figueroa RTR Scrub, Hallie Mccollum RTR Monitor Procedures Performed Art Access - R femoral artery , Left Heart Cath w/or w/o Coronaries LHC , JUAN Place w/wo Plasty Single LAD , Hemostasis w/ Mynx Indication Unstable angina Risk Factors Hypercholesterolemia, Tobacco History () Previous Procedures/Diagnoses Previous PCI, Previous CO Admission/Lab Medications/Medications given during procedure Nitroglycerin IC 150 mcg, Angiomax IV 13 ml, Angiomax Drip IV 30.1 ml per hr, Effient PO 30 mg, Aspirin PO 81 mg Procedure Narrative The patient was brought urgently to the Cardiac Catheterization Laboratory and was prepped and draped in a sterile manner. The right femoral was infiltrated with 2% Lidocaine subcutaneous anesthesia. IV conscious sedation was used throughout procedure with appropriate monitoring and was performed in the presence of a registered nurse [address] [address] CARDIAC CATH REPORT Name: LUCIANOLULI Rajni Room: [address] Bhumi Bartholomew#: [id number] Admission: 12/23/20 Attend Phys: Pepe Strong MD, Discharge: Date of : 59 Report #: [id number] who was an independent trained observer other than the physician performing the procedure. A 6F Ultimum sheath was inserted into the right femoral artery. Coronary angiography was performed using coronary diagnostic catheters. The right coronary system was accessed and visualized with a 6F JR4 catheter. The left coronary system was accessed and visualized with a 6F JL4 catheter. The left ventricle was accessed and visualized with a 6F Pigtail catheter. Left ventricular/Aortic Valve gradient assessed via catheter pullback. Left ventriculogram was performed in YANG projection. Pre-demployment femoral angiogram was performed . Closure device was deployed with a 6 Fr Mynx. The patient tolerated the procedure well and there were no complications associated with the procedure. There was no hematoma. Intraoperative Conscious Sedation Sedation start time: 12:08 Case end Time: 12:58 Fentanyl 25 mcg Versed 1 mg Fluoro Time: 9.2 minutes Dose: DAP [id number] cGycm2 2032 mGy Contrast Type and Amount: Visipaque 270 ml Diagnostic Cath Left Main 0% narrowing LAD Patent proximal and mid LAD stents with 75% mid LAD in-stent restenosis Circumflex Nondominant vessel with 40% mid vessel in-stent narrowing and 50% proximal first marginal narrowing Right Coronary Large dominant vessel with 30% mid vessel narrowing and atheromatous debris noted in the mid right coronary artery Left Ventriculography The left ventricle is normal in size with Moderately decreased contractility. The left ventricular ejection fraction is estimated to be 35%. Left ventricular wall motion abnormalities are present. There is no mitral insufficiency. There is moderate diffuse hypokinesis of LV wall motion. Hemodynamics The aortic pressure is 127/70 mmHg with a mean of 93 mmHg. The left ventricular pressure is 127/10 mmHg with a mean of mmHg. The left ventricular end diastolic pressure is 17 mmHg[place] [address] CARDIAC CATH REPORT Name: LULI WOLF Room: [address] M..#: [id number] Admission: 12/23/20 Attend Phys: Pepe Strong MD, Discharge: Date of : 59 Report #: [id number] Anticoagulation was achieved with Angiomax. Patient was preloaded with Angiomax IV 13 ml. Percutaneous coronary intervention was performed on the mid left anterior descending artery segment. The lesion stenosis prior to intervention was 75% with PACHECO 3 flow. A 6F XB LAD 3.5 Guide Catheter was used to engage the lm ostium. A BMW 190cm Interventional Guidewire was used to cross the lesion. BALLOON DILATION A Balloon catheter NC Euphora 2.5x8 was inserted and inflated up to 17.00atm for 14seconds. Additional Inflation: 18.00atm for 11seconds. Additional Inflation: 20.00atm for 12seconds. STENT DEPLOYMENT A drug-eluting stent Floris RX Stent 2.5X12mm was inserted and inflated up to 15.00atm for 11seconds. Additional Inflation: 17.00atm for 8seconds. Final angiography reveals 0 % stenosis with PACHECO 3 flow. Conclusion 1. Coronary artery disease characterized by the following: A patent proximal and mid LAD stents with 75% mid LAD in-stent restenosis B 40% mid circumflex in-stent narrowing with 50% proximal first marginal narrowing C large dominant right coronary artery with 30% mid vessel narrowing and atheromatous debris in the mid right coronary artery 2. Moderate impairment in global LV function, estimated ejection fraction being 35% with moderate diffuse hypokinesis of LV wall motion 3. Mild elevation of left ventricular end-diastolic pressure at rest 4. Successful PCI with deployment of a drug-eluting stent at the site of 75% mid LAD in-stent restenosis with 0% residual narrowing and PACHECO-3 flow to the distal vessel [place] [address] CARDIAC CATH REPORT Name: LULI WOLF Room: [address] MPastorRPastor#: [id number] Admission: 12/23/20 Attend Phys: Pepe Strong MD, Discharge: Date of : 59 Report #: [id number] Cardiac Risk Reduction Program Aggressive Medical Therapy Medications Administered Aspirin (any) Prasugrel Diagnostic Cath Approved by: Pepe Strong MD Date/Time: 12/23/2020 14:51:57 <ELECTRONICALLY SIGNED> By: Pepe Strong MD, [facility] 12/23/20 1455 1455 1455Pepe Strong MD, FAC /INF
--- NOTE | 2020-12-23 15:48 | EKG ---
[place] [address] ELECTROCARDIOGRAM REPORT Name: LUCIANOLULI Urban Room: [address]R.#: [id number] Admission: 12/23/20 Attend Phys: Les De La Fuente Discharge: Date of : 59 Date of Service: 12/23/20 0934 Report #: [id number] THIS REPORT FOR: //name// [facility] ED Test Date: 2020-12-23 Test Time: 09:34:20 Pat Name: LULI WOLF Department: Room: [place] [address] Gender: M Lab Tester: KIRAN : 1955 Requested By: Pepe Strong Order Number: [id number] Reading MD: Pepe Strong Measurements Intervals [place] Rate: 72 P: 0 NV: 157 QRS: -9 QRSD: 116 T: 210 QT: 387 QTc: 424 Interpretive Statements Sinus rhythm Incomplete left bundle branch block Anterior Q waves, probable anteroseptal scar Compared to ECG 06/24/2020 04:59:3 Anteroseptal Q waves persist Intraventricular conduction delay persists Electronically Signed On 12-23-2020 15:47:48 CDT by Pepe Strong [email or web address] <ELECTRONICALLY SIGNED> By: Pepe Strong MD, FAC 12/23/20 1547 0934 0934 Pepe Strong MD, FAC /EPI
--- NOTE | 2020-12-23 19:05 | NUR ---
RECEVIED REPORT. ASSUMED CARE OF PT AROUND 1630. ADMISSION ASSESSMENT, HISTORY, EDUCATION AND VITALS COMPLETED CHARTED. POST CATH VITALS CHARTED. MEDS PER EMAR. RIGHT GROIN CATH SITE CDI NO HEMATOMA. UP AT 1900 - AMBULATED TO BATHROOM WITHOUT ISSUE. CALL LIGHT WITHIN REACH. HOURLY ROUNDING PERFORMED. ASP NET DEVELOPER IN PLACE.
[2020-12-24 00:03] VITALS: BP 116/69
--- NOTE | 2020-12-24 03:22 | NUR ---
PT AO X4, VERY PLEASANT. HAD HEART CATH TODAY WITH ONE STENT PLACED THROUGH THE RT GROIN. SITE BANDAGE IS C/D/I AND HAS NO PAIN. PT RESTING COMFORTABLY, EATING LUNCH BOX AND DRINKING FLUIDS WITHOUT DIFFICULTY. VSS. WILL CONTINUE TO MONITOR.
[2020-12-24 04:21] VITALS: BP 109/68
[2020-12-24 04:52] LABS: ALBUMIN 3.2 g/dL (3.4-5.0); ALKALINE PHOSPHATASE 50 U/L (46-116); ANION GAP 6 mmol/L (7-16); BUN 19 mg/dL (7-18); CALCIUM 8.3 mg/dL (8.5-10.1); CHLORIDE 108 mmol/L (98-107); CHOLESTEROL 166 mg/dL (<200); CO2 26 mmol/L (21-32); CREATININE 1.3 mg/dL (0.6-1.3); GLUCOSE 188 mg/dL (70-99); HDL CHOLESTEROL 22 mg/dL (>40); POTASSIUM 4.5 mmol/L (3.5-5.1); SGOT 18 U/L (15-37); SGPT 25 U/L (30-65); SODIUM 140 mmol/L (136-145); TC:HDL 7.5 Ratio (Not establshd); TOTAL BILIRUBIN 0.2 mg/dL (<0.1-1.0); TOTAL PROTEIN 6.5 g/dL (6.4-8.2); TRIGLYCERIDE 513 mg/dL (<150); TROPONIN-I LEVEL 0.14 ng/mL (<0.06); VLDL 103 mg/dL (<40)
[2020-12-24 04:54] LABS: LDL CHOLESTEROL ND mg/dL (<100)
[2020-12-24 04:55] LABS: SERUM ASSESSMENT Moderate Lipemia
[2020-12-24 04:59] LABS: HEMATOCRIT 35.4 % (42.0-52.0); HEMOGLOBIN 12.4 gm/dL (14.0-18.0); MCH 32.7 pg (26.0-34.0); MCV 93.6 fL (80.0-100.0); MPV 7.9 fl. (7.2-11.1); RBC 3.78 mil/uL (4.50-6.00); RDW-CV 13.4 % (10.5-14.5); WBC 8.3 thou/uL (4.0-11.0)
[2020-12-24 07:45] VITALS: BP 98/61
[2020-12-24] MEDS ORDERED: NITROGLYCERIN0.4 MG SUBLING (07:58)
[2020-12-24 10:19] VITALS: BP 98/61
--- NOTE | 2020-12-24 10:43 | NUR ---
ASSUMED CARE OF PT AT 0730. PT A&0X4, DENIES ANY PAIN OR SHORTNESS OF BREATH. AT BEDSIDE. 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 ON RA SAT UPPER 90'S. PT UP AD CHARLIE IN ROOM. RIGHT GROIN CATH SITE C/D/I WITH NO HEMATOMA NOTED. AM ASSESSMENT CHARTED. MEDICATIONS PER AUG. PT REPOSITIONS SELF. HOURLY ROUNDING OBSERVED. BED IN LOW POSITION. CALL LIGHT WITHIN REACH. WILL CONTINUE PLAN OF CARE.
--- NOTE | 2020-12-24 10:48 | H ---
[address] [address] HISTORY AND PHYSICAL Name: LULI WOLF Room: [address] [place]#: [id number] Admission: 12/23/20 Attend Phys: Pepe Strong MD, Discharge: Date of : 59 Report #: [id number] THIS REPORT FOR: cc: [facility] - Clinic physician unknown [facility] - Clinic physician unknown Pepe Strong MD [facility] ~ ADMIT DATE: 12/23/2020 HISTORY OF PRESENT ILLNESS: The patient is a 65-year-old male with complex coronary artery disease, status post multiple prior anterior wall myocardial infarctions. He underwent acute interventions on all occasions and sustained stent thrombosis on two occasions related to medication noncompliance. More recently, he has been compliant with dual antiplatelet therapy. Nevertheless, he has noted exertional chest discomfort and dyspnea which has increased in frequency and severity over the last several weeks and now he presents to the ER in that context today. He has had no protracted bouts of pain and no sustained discomfort as associated with his prior infarcts. Major risk factors include tobacco habituation and hypercholesteremia. MEDICATIONS: Included aspirin 81 mg daily, prasugrel 10 mg daily, atorvastatin 40 mg daily, fenofibrate 145 mg daily, fish oil and Synthroid 0.175 mg daily. PAST MEDICAL HISTORY: Remarkable for tobacco use, medication noncompliance. SOCIAL HISTORY: He has been a significant smoker though has decreased markedly since I last saw him in the office last several weeks ago. REVIEW OF SYSTEMS: Remarkable for the following: PULMONARY: Notes dyspnea with modest exertion. CARDIAC: He has a chest pain with exertion. PHYSICAL EXAMINATION: GENERAL: Demonstrates a mildly distressed middle-aged male. VITAL SIGNS: Blood pressure 140/70, pulse rate is 72, and respirations are 18 per minute. NECK: Jugular venous pressure is normal. CHEST: Clear with decreased breath sounds diffusely. CARDIAC: Reveals normal first and second heart sounds without murmurs or gallops. ABDOMEN: Soft. EXTREMITIES: Without edema with intact femoral, pedal and radial pulses. LABORATORY DATA: EKG reveals sinus rhythm, anterior wall scar, and nonspecific ST-T alterations such that anter[place] [address] HISTORY AND PHYSICAL Name: LULI WOLF Room: [address]#: [id number] Admission: 12/23/20 Attend Phys: Pepe Strong MD, Discharge: Date of : 59 Report #: [id number] IMPRESSION: 1. Coronary artery disease, status post prior myocardial infarction. 2. Recurrent chest pain compatible with angina following an unstable course. 3. Status post multiple prior PCIs. 4. Hypercholesteremia. 5. Tobacco habituation. RECOMMENDATIONS: Given the aforementioned clinical scenario with recrudescent of chest pain following a clinically unstable pattern, I would recommend proceeding with a cardiac catheterization to define current coronary anatomy and prospects for subsequent therapeutic modification. This has been discussed with patient and family. Critical care time is 35 minutes from 1025 to 1100 on 12/23/2020. <ELECTRONICALLY SIGNED> By: Pepe Strong MD, FACC 12/24/20 1048 1000 1201Jodorys Strong MD, FAC /nt
== END 2020-12-24 10:45 | disposition home or self-care (01) ==
LOC: M.ERS 09:30 → M.TBA-CV 10:50 → M.2W 17:05
PROVIDERS: Family Medicine; ADMIT Internal Medicine; ATTEND Internal Medicine
DX: I25.110 Atherosclerotic heart disease of native coronary artery with unstable angina pectoris (principal); Z20.822 Contact with and (suspected) exposure to COVID-19; J44.9 Chronic obstructive pulmonary disease, unspecified; E11.9 Type 2 diabetes mellitus without complications; E03.9 Hypothyroidism, unspecified; G89.29 Other chronic pain; E78.5 Hyperlipidemia, unspecified; F17.210 Nicotine dependence, cigarettes, uncomplicated; Z90.89 Acquired absence of other organs; Z79.82 Long term (current) use of aspirin; Z79.4 Long term (current) use of insulin; Z79.899 Other long term (current) drug therapy